=== PATIENT | female | born 1955 | race African-American/Black ===

== ENCOUNTER 2017-03-20 14:16 | Inpatient (IN) | payer OTHER ==
[2017-03-20 16:23] VITALS: BMI 20.2
[2017-03-20] MEDS ORDERED: NICOTINE POLACRILEX 2 MG GUM BC PRN (17:52)
[2017-03-20] MEDS ORDERED: ACETAMINOPHEN 325 MG TABLET (FP) PO PRN (17:52)
[2017-03-20] MEDS ORDERED: MAGNESIUM CITRATE 300 ML BOTTLE PO PRN (17:52)
[2017-03-20] MEDS ORDERED: MENTHOL/PHENOL 1 EACH UD MM PRN (17:52)
[2017-03-20] MEDS ORDERED: P-EPHED 60MG/TRIPROLIDI 2.5MG TABLET PO PRN (17:52)
[2017-03-20] MEDS ORDERED: IBUPROFEN 400 MG TABLET (FP) PO PRN (17:52)
[2017-03-20] MEDS ORDERED: hydrOXYzine PAMOATE 50 MG CAPSULE (FP) PO PRN (17:52)
[2017-03-20] MEDS ORDERED: chlordiazePOXIDE HCL 25 MG CAPSULE PO PRN (17:52)
[2017-03-20] MEDS ORDERED: guaiFENesin/D-METHORPHAN HB 10 ML UNIT-DOSE CUPS PO PRN (17:52)
[2017-03-20] MEDS ORDERED: LOPERAMIDE HCL 2 MG CAPSULE PO PRN (17:52)
--- NOTE | 2017-03-20 17:57 | HP ---
CIWA Score - CIWA Score Nausea/Vomitin-Int. Nausea w/Dry Heave Muscle Tremors: 3 Anxiety: 3 Agitation: 3 Paroxysmal Sweats: 3 Orientation: 0-Oriented Tacttile Disturbances: 1-Very Mild Itch/Numbness Auditory Disturbances: 0-None Visual Disturbances: 0-None Headache: 0-None Present CIWA-Ar Total Score: 17 Admission ROS BHS - HPI Chief Complaint: alcohol and benzodiazepine withdrawal sx Allergies/Adverse Reactions: Allergies Allergy/AdvReac Type Severity Reaction Status Date / Time Sulfa (Sulfonamide Allergy Severe Swelling Verified 03/20/17 16:53 Antibiotics) History of Present Illness: 61 yo f w h/o opioid use disorder on MMTP 100mg dialy last date of medication , was not medicated today because [facility] and [facility]odiazep[facility]. smokes crack cocaine, has chast pain when she smokes, smokes 1PPD. nicotine develops withdrawal sx when she does not use, last used last night. Exam Limitations: No Limitations - Ebola screening Have you traveled outside of the country in the last 21 days: No Have you had contact with anyone from an Ebola affected area: No Have you been sick,other than usual withdrawal symptoms: No Do you have a fever: No - Review of Systems Constitutional: Chills, Diaphoresis, Night Sweats, Weakness, Unintentional Wgt. Loss EENT: reports: Nose Congestion Respiratory: reports: No Symptoms reported Cardiac: reports: Chest Pain (when she smokes ciagarresttes and crack, angina on medication did not take today) GI: reports: Diarrhea, Nausea, Poor Appetite, Poor Fluid Intake, Vomiting, Indigestion, Abdominal cramping : reports: Discharge Musculoskeletal: reports: Back Pain, Muscle Pain Integumentary: reports: Flushing, Sweating Neuro: reports: Headache, Numbness, Paresthesia, Tremors, Weakness Endocrine: reports: Increased Thirst Hematology: reports: No Symptoms Reported Psychiatric: reports: Judgement Intact, Mood/Affect Appropiate, Orientated x3, Anxious, Depressed Other Systems: Reviewed and Negative Patient History - Patient Medical History Hx Anemia: No Hx Asthma: No Hx Chronic Obstructive Pulmonary Disease (COPD): No Hx Cancer: No Hx Cardiac Disorders: No Hx Congestive Heart Failure: No Hx Hypertension: Yes Hx Hypercholesterolemia: No Hx Pacemaker: No HX Cerebrovascular Accident: No Hx Seizures: No Hx Dementia: No Hx Diabetes: No Hx Gastrointestinal Disorders: Yes (acid reflux) Hx Liver Disease: No Hx Genitourinary Disorders: No Hx Sexually Transmitted Disorders: Yes (gonorrhea and syphilis) Hx Renal Disease (ESRD): No Hx Thyroid Disease: No Hx Human Immunodeficiency Virus (HIV): No Hx Hepatitis C: No Hx Depression: Yes Hx Suicide Attempt: No Hx Bipolar Disorder: No Hx Schizophrenia: No - Patient Surgical History Past Surgical History: Yes Hx Neurologic Surgery: No Hx Cataract Extraction: No Hx Cardiac Surgery: No Hx Lung Surgery: No Hx Breast Surgery: No Hx Breast Biopsy: No Hx Abdominal Surgery: Yes (spleenectomy) Hx Appendectomy: No Hx Cholecystectomy: No Hx Genitourinary Surgery: No Hx Section: No Hx Orthopedic Surgery: No Anesthesia Reaction: No - PPD History Previous Implant?: Yes Documented Results: Negative w/o proof Implanted On Prior R Admission?: No PPD to be Administered?: Yes - Reproductive History Patient is a Female of Child Bearing Age (11 -55 yrs old): No Patient : No - Smoking Cessation Smoking history: Current every day smoker Have you smoked in the past 12 months: Yes Aproximately how many cigarettes per day: 20 Hx Chewing Tobacco Use: No Initiated information on smoking cessation: Yes 'Breaking Loose' booklet given: 03/20/17 - Substance & Tx. History Hx Alcohol Use: Yes Hx Substance Use: Yes Substance Use Type: Alcohol, Cocaine, Heroin, Marijuana, Opiates, Prescribed, Tranquilizers Hx Substance Use Treatment: Yes (MMTP) - Substances Abused Cocaine Route: Smoking Frequency: Daily Amount used: $100 Age of first use: 40 Date of Last Use: 03/19/17 Heroin Route: Inhalation Frequency: Daily Amount used: 4-6 bags Age of first use: 34 Date of Last Use: 03/19/17 Alcohol-jeanie/beer Route: Oral Frequency: Daily Amount used: 1/4 pt./2 (32 oz.) Age of first use: 17 Date of Last Use: 03/20/17 Marijuana Route: Smoking Frequency: Daily Amount used: $10 Age of first use: 18 Date of Last Use: 03/19/17 Family Disease History - Family Disease History Family History: Denies Admission Physical Exam BHS - Vital Signs Vital Signs: Vital Signs - 24 hr 03/20/17 16:19 Temperature 96.6 F L Pulse Rate 71 Respiratory 19 Rate Blood Pressure 141/73 - Physical General Appearance: Yes: Nourished, Appropriately Dressed, Disheveled, Mild Distress, Alcohol on Breath, Thin, Tremorous, Sweating, Anxious HEENTM: Yes: Within Normal Limits, EOMI, Hearing grossly Normal, Normal ENT Inspection, Normocephalic, Normal Voice, SABRINA, Pharynx Normal Respiratory: Yes: Within Normal Limits, Chest Non-Tender, Lungs Clear, Normal Breath Sounds, No Respiratory Distress, No Accessory Muscle Use Neck: Yes: Within Normal Limits, No masses,lesions,Nodules, Supple, Trachea in good position Breast: Yes: Breast Exam Deferred Cardiology: Yes: Within Normal Limits, Regular Rhythm, Regular Rate, S1, S2 Abdominal: Yes: Normal Bowel Sounds, Non Tender, Flat, Soft Genitourinary: Yes: Vaginal Discharge (reported requesting monistat) Back: Yes: Within Normal Limits, Normal Inspection Musculoskeletal: Yes: full range of Motion, Gait Steady, Pelvis Stable, Back pain, Muscle Pain Extremities: Yes: Normal Capillary Refill, Normal Range of Motion, Non-Tender, Tremors Neurological: Yes: student recruiter II-XII NML intact, Fully Oriented, Alert, Motor Strength 5/5, Normal Response Integumentary: Yes: Normal Color, Warm Lymphatic: Yes: Within Normal Limits - Addiitonal Findings: withdrawal sx - Diagnostic (1) Alcohol dependence with uncomplicated withdrawal Current Visit: Yes Status: Acute (2) Cocaine dependence Current Visit: Yes Status: Acute (3) Opioid dependence on agonist therapy Current Visit: Yes Status: Acute (4) Nicotine dependence Current Visit: Yes Status: Acute (5) Chest pain Current Visit: Yes Status: Acute (6) Dehydration Current Visit: Yes Status: Acute (7) Depression Current Visit: Yes Status: Acute (8) Vaginal discharge Current Visit: Yes Status: Acute Cleared for Admission [facility] - Detox or Rehab [facility] Level of Care: Medically Managed Detox Regimen/Protocol: Librium [facility] Breath Alcohol Content Breath Alcohol Content: 0.012 Urine Pregancy Test - Result Urine Test Results: Negative- NO Line Present Urine Drug Screen - Results Drug Screen Negative: No Urine Drug Screen Results: PIPER-Cocaine, OPI-Opiates, MTD-Methadone
[2017-03-20] MEDS ORDERED: chlordiazePOXIDE HCL 25 MG CAPSULE PO ONE (18:30)
[2017-03-20] MEDS: RANOLAZINE E.R. 500 MG TABLET (FP) PO SCH (19:30)
[2017-03-20] MEDS: NICOTINE 14 MG/24 HOURS TOPICAL PATCH TD SCH (19:32)
[2017-03-20] MEDS: GABAPENTIN 100 MG CAPSULE (FP) PO SCH (22:11)
[2017-03-20] MEDS: THIAMINE HCL 100 MG TABLET (FP) PO SCH (22:11)
[2017-03-20] MEDS: chlordiazePOXIDE HCL 25 MG CAPSULE PO SCH (22:11)
[2017-03-20] MEDS: MICONAZOLE NITRATE 100 MG SUPP SUPP.VAG PV SCH (22:14)
[2017-03-20 23:40] LABS: URINE APPEARANCE SLCLOUDY; URINE BILIRUBIN NEGATIVE (NEGATIVE); URINE BLOOD 2+ (NEGATIVE); URINE COLOR DKYELLOW; URINE GLUCOSE (UA) NEGATIVE (NEGATIVE); URINE KETONE NEGATIVE (NEGATIVE); URINE NITRITE NEGATIVE (NEGATIVE); URINE PROTEIN NEGATIVE (NEGATIVE)
[2017-03-21 00:25] LABS: URINE LEUK ESTERASE 1+ (NEGATIVE)
[2017-03-21 01:39] LABS: URINE MUCUS RARE; URINE RBC 11 /hpf (0-3); URINE WBC 3 /hpf (3-5)
[2017-03-21] MEDS: chlordiazePOXIDE HCL 25 MG CAPSULE PO SCH ×4 (05:51→22:30)
[2017-03-21] MEDS: GABAPENTIN 100 MG CAPSULE (FP) PO SCH ×3 (05:51→22:30)
--- NOTE | 2017-03-21 09:47 | CONSULT ---
[facility] Psychiatric Consult - Data Date of interview: 03/21/17 Admission source: [facility] Identifying data: Pt. is a 61 year old female, mother of two, , unemployed , homeless, and on disability. Pt. admitted to for cocaine, heroin, marijuana, and alcohol dependence. Substance Abuse History: Following information confirmed with Ms. Pettit: Smoking Cessation. Smoking history: Current every day smoker. Have you smoked in the past 12 months: Yes. Aproximately how many cigarettes per day: 20. - Substance & Tx. History. Hx Alcohol Use: Yes. Hx Substance Use: Yes. Substance Use Type: Alcohol, Cocaine, Heroin, Marijuana, Opiates, Prescribed, Tranquilizers. Hx Substance Use Treatment: Yes (MMTP). Cocaine: Route: Smoking Frequency: Daily. Amount used: $100 Age of first use: 40. Date of Last Use: 03/19/17. Heroin: Route: Inhalation Frequency: Daily. Amount used: 4-6 bags Age of first use: 34. Date of Last Use: 03/19/17. Alcohol- jeanie/beer: Route: Oral. Frequency: Daily Amount used: 1/4 pt./2 (32 oz.) . Age of first use: 17 Date of Last Use: 03/20/17. Marijuana: Route: Smoking Frequency: Daily. Amount used: $10 Age of first use: 18. Date of Last Use: 03/19/17 Medical History: Hypertension, acid reflux Psychiatric History: Pt. reports h/o one past psychiatric hospitalization at [facility] for suicidal ideation. Pt. unable to recall which medication she was given while at [place]. Pt. reports h/o two suicide attempts. One in 1994 in which she attempted to cut her arm but was stopped and also in 2012 which patient stated she attempted to jump off the fire escape but was also stopped. Pt. is a poor historian and is unable to recall which psychiatric medications she is currently taking and the last time she took them. Pt. stated " i'm a junkie. i do every drug. I don't take no psych medications." Pt. reports last seeing a psychiatrist [facility] over one month ago but stated her case was closed for missing to many appointments. Pt. currently denies suicidal and homicial ideation. Physical/Sexual Abuse/Trauma History: Pt. denies. Additional Comment: Urine Drug Screen Results: PIPER-Cocaine, OPI-Opiates, MTD- Methadone Mental Status Exam - Mental Status Exam Alert and Oriented to: Time, Place, Person Cognitive Function: Fair Patient Appearance: Unkempt Mood: Euthymic Affect: Mood Congruent Patient Behavior: Talkative, Cooperative Speech Pattern: Appropriate Voice Loudness: Moderately Soft/Quiet Thought Process: Circumstantial, Goal Oriented Hallucinations: Denies Suicidal Ideation: Denies Homicidal Ideation: Denies Insight/Judgement: Poor Sleep: Fair Appetite: Fair Muscle strength/Tone: Normal Gait/Station: Normal Psychiatric Findings - Problem List ([place] 1, 2,3) (1) Alcohol dependence with uncomplicated withdrawal Current Visit: Yes Status: Chronic (2) Opioid dependence on agonist therapy Current Visit: Yes Status: Acute (3) Cocaine dependence Current Visit: Yes Status: Acute Qualifiers: Substance use status: uncomplicated Qualified Code(s): F14.20 - Cocaine dependence, uncomplicated (4) Nicotine dependence Current Visit: Yes Status: Acute Qualifiers: Nicotine product type: cigarettes Substance use status: uncomplicated Qualified Code(s): F17.210 - Nicotine dependence, cigarettes, uncomplicated - Initial Treatment Plan Initial Treatment Plan: Psychoeducation provided. Detox in progress. Will continue to monitor patient.
[2017-03-21] MEDS ORDERED: METHADONE HCL 10 MG TABLET PO ONE (10:04)
[2017-03-21 10:13] LABS: MCH 33.3 pg (25.7-33.7); MCHC 33.2 g/dl (32.0-36.0); MEAN CELL VOLUME 100.5 fl (80-96); MEAN PLT VOLUME 8.1 fl (7.5-11.1); PLATELET COUNT 242 K/MM3 (134-434); RDW 13.9 % (11.6-15.6); WHITE BLOOD COUNT 7.1 K/mm3 (4.0-10.0)
[2017-03-21] MEDS: RANOLAZINE E.R. 500 MG TABLET (FP) PO SCH (10:17)
[2017-03-21] MEDS: PRENATAL VITAMINS W/ FOLIC ACID TABLET (FP) PO SCH (10:17)
[2017-03-21] MEDS ORDERED: METHADONE HCL 10 MG TABLET ONE (10:23)
[2017-03-21] MEDS ORDERED: METHADONE HCL 40 MG DISPERSABLE TABLET ONE (10:23)
[2017-03-21] MEDS ORDERED: METHADONE 80 MG, METHADONE 20 MG PO ONE (10:30)
[2017-03-21 10:34] LABS: ALBUMIN 3.3 g/dl (3.4-5.0); ALK PHOS 94 U/L (45-117); ANION GAP 9 (8-16); BILIRUBIN,TOTAL 0.8 mg/dL (0.2-1.0); CALCIUM 8.2 mg/dL (8.5-10.1); CO2 27 mmol/L (21-32); CREATININE 0.8 mg/dL (0.55-1.02); GLUCOSE,RANDOM 101 mg/dL (74-106); SGOT/AST 24 U/L (15-37); SGPT/ALT 21 U/L (12-78); TOT PROT 6.6 g/dl (6.4-8.2)
--- NOTE | 2017-03-21 12:24 | PN ---
S CIWA - CIWA Score Nausea/Vomitin-No Nausea/No Vomiting Muscle Tremors: 4-Moderate,w/Arms Extend Anxiety: 4-Mod. Anxious/Guarded Agitation: 3 Paroxysmal Sweats: 3 Orientation: 0-Oriented Tacttile Disturbances: 0-None Auditory Disturbances: 0-None Visual Disturbances: 0-None Headache: 0-None Present CIWA-Ar Total Score: 14 BHS Progress Note (SOAP) Subjective: shakes sweats body aches irritable agitation Objective: 03/21/17 12:24 Vital Signs Temperature 98.4 F 03/21/17 10:13 Pulse Rate 84 03/21/17 10:13 Respiratory Rate 18 03/21/17 10:13 Blood Pressure 125/74 03/21/17 10:13 O2 Sat by Pulse Oximetry (%) Laboratory Tests 03/20/17 03/21/17 03/21/17 20:15 07:00 07:00 WBC 7.1 RBC 4.07 Hgb 13.6 Hct 40.9 MCV 100.5 H MCH 33.3 MCHC 33.2 RDW 13.9 Plt Count 242 MPV 8.1 Sodium 141 Potassium 3.8 Chloride 105 Carbon Dioxide 27 Anion Gap 9 BUN 24 H Creatinine 0.8 Creat Clearance w eGFR > 60 Random Glucose 101 Calcium 8.2 L Total Bilirubin 0.8 AST 24 ALT 21 Alkaline Phosphatase 94 Total Protein 6.6 Albumin 3.3 L Urine Color Dkyellow Urine Appearance Slcloudy Urine pH 5.0 Ur Specific [place] 1.023 Urine Protein Negative Urine Glucose (UA) Negative Urine Ketones Negative Urine Blood 2+ H Urine Nitrite Negative Urine Bilirubin Negative Urine Urobilinogen 2.0 H Urine WBC (Auto) 3 Urine RBC (Auto) 11 Ur Epithelial Cells Rare Urine Mucus Rare RPR Titer 03/21/17 07:00 WBC RBC Hgb Hct MCV MCH MCHC RDW Plt Count MPV Sodium Potassium Chloride Carbon Dioxide Anion Gap BUN Creatinine Creat Clearance w eGFR Random Glucose Calcium Total Bilirubin AST ALT Alkaline Phosphatase Total Protein Albumin Urine Color Urine Appearance Urine pH Ur Specific [place] Urine Protein Urine Glucose (UA) Urine Ketones Urine Blood Urine Nitrite Urine Bilirubin Urine Urobilinogen Urine WBC (Auto) Urine RBC (Auto) Ur Epithelial Cells Urine Mucus RPR Titer Nonreactive aaox3 ambulating no acute distress Assessment: 03/21/17 12:24 withdrawal sx Plan: continue detox increase fluids
[2017-03-21] MEDS: NICOTINE 14 MG/24 HOURS TOPICAL PATCH TD SCH (12:35)
[2017-03-21 12:42] LABS: SICKLE CELL SCREEN NEGATIVE (NEGATIVE)
[2017-03-21] MEDS: NICOTINE 21 MG/24 HOURS TOPICAL PATCH TD SCH (12:49)
[2017-03-21] MEDS: MAGNESIUM HYDROX 2400MG/30ML ORAL SUSPENSION 30 ML CUP PO PRN ×2 (13:05→22:43)
--- NOTE | 2017-03-21 14:00 | EKG ---
Test Reason : Blood Pressure : / mmHG Vent. Rate : 061 BPM Atrial Rate : 061 BPM P-R Int : 126 ms QRS Dur : 080 ms QT Int : 450 ms P-R-T Axes : 062 053 039 degrees QTc Int : 453 ms NORMAL SINUS RHYTHM T WAVE ABNORMALITY, CONSIDER ANTERIOR ISCHEMIA ABNORMAL ECG NO PREVIOUS ECGS AVAILABLE Confirmed by FABIANA VENTURA MD ([id number]) on 03/21/2017 1:59:55 PM Referred By: Confirmed By:FABIANA VENTURA MD
[2017-03-21] MEDS: MICONAZOLE NITRATE 100 MG SUPP SUPP.VAG PV SCH (22:30)
[2017-03-21] MEDS: THIAMINE HCL 100 MG TABLET (FP) PO SCH (22:30)
[2017-03-22] MEDS ORDERED: METHADONE HCL 10 MG TABLET ONE (05:07)
[2017-03-22] MEDS ORDERED: METHADONE HCL 40 MG DISPERSABLE TABLET ONE ×2 (05:07→11:13)
[2017-03-22] MEDS ORDERED: METHADONE HCL 40 MG DISPERSABLE TABLET PO SCH (06:00)
[2017-03-22] MEDS: chlordiazePOXIDE HCL 25 MG CAPSULE PO SCH ×3 (06:51→17:49)
[2017-03-22] MEDS: METHADONE 80 MG, METHADONE 20 MG PO SCH (07:48)
[2017-03-22] MEDS: GABAPENTIN 100 MG CAPSULE (FP) PO SCH ×3 (07:49→22:17)
[2017-03-22] MEDS ORDERED: METHADONE HCL 10 MG TABLET PO ONE ×2 (10:34→11:45)
[2017-03-22] MEDS: PRENATAL VITAMINS W/ FOLIC ACID TABLET (FP) PO SCH (10:36)
[2017-03-22] MEDS: RANOLAZINE E.R. 500 MG TABLET (FP) PO SCH (10:36)
[2017-03-22] MEDS: NICOTINE 21 MG/24 HOURS TOPICAL PATCH TD SCH (10:36)
[2017-03-22] MEDS ORDERED: METHADONE 80 MG, METHADONE (DETOX) 20 MG PO ONE (11:15)
[2017-03-22] MEDS ORDERED: METHADONE 80 MG, METHADONE 20 MG PO ONE (11:30)
[2017-03-22] MEDS ORDERED: ONDANSETRON *ODT* 4 MG TABLET SL PRN (15:02)
--- NOTE | 2017-03-22 15:08 | PN ---
S CIWA - CIWA Score Nausea/Vomitin-No Nausea/No Vomiting Muscle Tremors: 3 Anxiety: 4-Mod. Anxious/Guarded Agitation: 3 Paroxysmal Sweats: 3 Orientation: 0-Oriented Tacttile Disturbances: 0-None Auditory Disturbances: 0-None Visual Disturbances: 0-None Headache: 0-None Present CIWA-Ar Total Score: 13 BHS Progress Note (SOAP) Subjective: Anxiety,tremors,sweating,restless Objective: 03/22/17 15:07 Vital Signs - 8 hr 03/22/17 10:00 Temperature 98.2 F Pulse Rate 101 H Respiratory 18 Rate Blood Pressure 138/92 Laboratory Tests 03/20/17 03/20/17 03/21/17 07:00 20:15 07:00 WBC 7.1 RBC 4.07 Hgb 13.6 Hct 40.9 MCV 100.5 H MCH 33.3 MCHC 33.2 RDW 13.9 Plt Count 242 MPV 8.1 Sickle Cell Screen Negative Sodium Potassium Chloride Carbon Dioxide Anion Gap BUN Creatinine Creat Clearance w eGFR Random Glucose Calcium Total Bilirubin AST ALT Alkaline Phosphatase Total Protein Albumin Urine Color Dkyellow Urine Appearance Slcloudy Urine pH 5.0 Ur Specific [place] 1.023 Urine Protein Negative Urine Glucose (UA) Negative Urine Ketones Negative Urine Blood 2+ H Urine Nitrite Negative Urine Bilirubin Negative Urine Urobilinogen 2.0 H Urine WBC (Auto) 3 Urine RBC (Auto) 11 Ur Epithelial Cells Rare Urine Mucus Rare RPR Titer Hepatitis C Antibody >11.0 H 03/21/17 03/21/17 07:00 07:00 WBC RBC Hgb Hct MCV MCH MCHC RDW Plt Count MPV Sickle Cell Screen Sodium 141 Potassium 3.8 Chloride 105 Carbon Dioxide 27 Anion Gap 9 BUN 24 H Creatinine 0.8 Creat Clearance w eGFR > 60 Random Glucose 101 Calcium 8.2 L Total Bilirubin 0.8 AST 24 ALT 21 Alkaline Phosphatase 94 Total Protein 6.6 Albumin 3.3 L Urine Color Urine Appearance Urine pH Ur Specific [place] Urine Protein Urine Glucose (UA) Urine Ketones Urine Blood Urine Nitrite Urine Bilirubin Urine Urobilinogen Urine WBC (Auto) Urine RBC (Auto) Ur Epithelial Cells Urine Mucus RPR Titer Nonreactive Hepatitis C Antibody labs noted Assessment: 03/22/17 15:07 Withdrawal sx. Plan: continue detox
[2017-03-22] MEDS ORDERED: TRIMETHOBENZAMIDE HCL 200MG/2ML INJ IM ONE (22:04)
[2017-03-22] MEDS: THIAMINE HCL 100 MG TABLET (FP) PO SCH (22:16)
[2017-03-22] MEDS: chlordiazePOXIDE 5 MG CAPSULE PO SCH (22:17)
[2017-03-22] MEDS: MICONAZOLE NITRATE 100 MG SUPP SUPP.VAG PV SCH (22:56)
[2017-03-23] MEDS ORDERED: METHADONE HCL 10 MG TABLET ONE (04:23)
[2017-03-23] MEDS ORDERED: METHADONE HCL 40 MG DISPERSABLE TABLET ONE (04:23)
[2017-03-23] MEDS: chlordiazePOXIDE 5 MG CAPSULE PO SCH ×3 (06:33→17:02)
[2017-03-23] MEDS: GABAPENTIN 100 MG CAPSULE (FP) PO SCH ×3 (06:34→22:41)
[2017-03-23] MEDS: METHADONE 80 MG, METHADONE 20 MG PO SCH (10:21)
[2017-03-23] MEDS: RANOLAZINE E.R. 500 MG TABLET (FP) PO SCH (10:22)
[2017-03-23] MEDS: PRENATAL VITAMINS W/ FOLIC ACID TABLET (FP) PO SCH (10:22)
[2017-03-23] MEDS: NICOTINE 21 MG/24 HOURS TOPICAL PATCH TD SCH (10:22)
--- NOTE | 2017-03-23 10:29 | PN ---
BHS Progress Note (SOAP) Subjective: Sweating,interrupted sleep,restless Objective: 03/23/17 10:28 Vital Signs - 8 hr 03/23/17 03/23/17 03:30 07:15 Temperature 96.9 F L Pulse Rate 66 Respiratory 18 16 Rate Blood Pressure 115/67 Laboratory Last Values WBC 7.1 K/mm3 (4.0-10.0) 03/21/17 07:00 RBC 4.07 M/mm3 (3.60-5.2) 03/21/17 07:00 Hgb 13.6 GM/dL (10.7-15.3) 03/21/17 07:00 Hct 40.9 % (32.4-45.2) 03/21/17 07:00 MCV 100.5 fl (80-96) H 03/21/17 07:00 MCH 33.3 pg (25.7-33.7) 03/21/17 07:00 MCHC 33.2 g/dl (32.0-36.0) 03/21/17 07:00 RDW 13.9 % (11.6-15.6) 03/21/17 07:00 Plt Count 242 K/MM3 (134-434) 03/21/17 07:00 MPV 8.1 fl (7.5-11.1) 03/21/17 07:00 Sickle Cell Screen Negative (NEGATIVE) 03/21/17 07:00 Sodium 141 mmol/L (136-145) 03/21/17 07:00 Potassium 3.8 mmol/L (3.5-5.1) 03/21/17 07:00 Chloride 105 mmol/L (98-107) 03/21/17 07:00 Carbon Dioxide 27 mmol/L (21-32) 03/21/17 07:00 Anion Gap 9 (8-16) 03/21/17 07:00 BUN 24 mg/dL (7-18) H 03/21/17 07:00 Creatinine 0.8 mg/dL (0.55-1.02) 03/21/17 07:00 Creat Clearance w eGFR > 60 (>60) 03/21/17 07:00 Random Glucose 101 mg/dL (74-106) 03/21/17 07:00 Calcium 8.2 mg/dL (8.5-10.1) L 03/21/17 07:00 Total Bilirubin 0.8 mg/dL (0.2-1.0) 03/21/17 07:00 AST 24 U/L (15-37) 03/21/17 07:00 ALT 21 U/L (12-78) 03/21/17 07:00 Alkaline Phosphatase 94 U/L (45-117) 03/21/17 07:00 Total Protein 6.6 g/dl (6.4-8.2) 03/21/17 07:00 Albumin 3.3 g/dl (3.4-5.0) L 03/21/17 07:00 Urine Color Dkyellow 03/20/17 20:15 Urine Appearance Slcloudy 03/20/17 20:15 Urine pH 5.0 (5.0-8.0) 03/20/17 20:15 Ur Specific [place] 1.023 (1.001-1.035) 03/20/17 20:15 Urine Protein Negative (NEGATIVE) 03/20/17 20:15 Urine Glucose (UA) Negative (NEGATIVE) 03/20/17 20:15 Urine Ketones Negative (NEGATIVE) 03/20/17 20:15 Urine Blood 2+ (NEGATIVE) H 03/20/17 20:15 Urine Nitrite Negative (NEGATIVE) 03/20/17 20:15 Urine Bilirubin Negative (NEGATIVE) 03/20/17 20:15 Urine Urobilinogen 2.0 mg/dL (0.2-1.0) H 03/20/17 20:15 Urine WBC (Auto) 3 /hpf (3-5) 03/20/17 20:15 Urine RBC (Auto) 11 /hpf (0-3) 03/20/17 20:15 Ur Epithelial Cells Rare /HPF (FEW) 03/20/17 20:15 Urine Mucus Rare 03/20/17 20:15 RPR Titer Nonreactive (NONREACTIVE) 03/21/17 07:00 Hepatitis C Antibody >11.0 s/co ratio (0.0-0.9) H 03/20/17 07:00 labs noted Assessment: 03/23/17 10:28 Withdrawal sx. Plan: Continue detox
[2017-03-23] MEDS: THIAMINE HCL 100 MG TABLET (FP) PO SCH (22:41)
[2017-03-23] MEDS: chlordiazePOXIDE HCL 10 MG CAPSULE PO SCH (22:41)
[2017-03-23] MEDS: MICONAZOLE NITRATE 100 MG SUPP SUPP.VAG PV SCH (22:41)
[2017-03-24] MEDS ORDERED: METHADONE HCL 40 MG DISPERSABLE TABLET ONE (04:34)
[2017-03-24] MEDS ORDERED: METHADONE HCL 10 MG TABLET ONE (04:34)
[2017-03-24] MEDS: METHADONE 80 MG, METHADONE 20 MG PO SCH (05:35)
[2017-03-24] MEDS: GABAPENTIN 100 MG CAPSULE (FP) PO SCH ×3 (05:36→22:19)
[2017-03-24] MEDS: chlordiazePOXIDE HCL 10 MG CAPSULE PO SCH ×3 (05:36→16:59)
--- NOTE | 2017-03-24 09:35 | PN ---
BHS Progress Note (SOAP) Subjective: interrupted sleep, sweats, tired Objective: 03/24/17 09:33 Vital Signs Temperature 96.4 F L 03/24/17 06:42 Pulse Rate 68 03/24/17 06:42 Respiratory Rate 16 03/24/17 06:42 Blood Pressure 109/72 03/24/17 06:42 O2 Sat by Pulse Oximetry (%) Laboratory Tests 03/20/17 03/20/17 03/21/17 07:00 20:15 07:00 WBC 7.1 RBC 4.07 Hgb 13.6 Hct 40.9 MCV 100.5 H MCH 33.3 MCHC 33.2 RDW 13.9 Plt Count 242 MPV 8.1 Sickle Cell Screen Negative Sodium Potassium Chloride Carbon Dioxide Anion Gap BUN Creatinine Creat Clearance w eGFR Random Glucose Calcium Total Bilirubin AST ALT Alkaline Phosphatase Total Protein Albumin Urine Color Dkyellow Urine Appearance Slcloudy Urine pH 5.0 Ur Specific [place] 1.023 Urine Protein Negative Urine Glucose (UA) Negative Urine Ketones Negative Urine Blood 2+ H Urine Nitrite Negative Urine Bilirubin Negative Urine Urobilinogen 2.0 H Urine WBC (Auto) 3 Urine RBC (Auto) 11 Ur Epithelial Cells Rare Urine Mucus Rare RPR Titer Hepatitis C Antibody >11.0 H 03/21/17 03/21/17 07:00 07:00 WBC RBC Hgb Hct MCV MCH MCHC RDW Plt Count MPV Sickle Cell Screen Sodium 141 Potassium 3.8 Chloride 105 Carbon Dioxide 27 Anion Gap 9 BUN 24 H Creatinine 0.8 Creat Clearance w eGFR > 60 Random Glucose 101 Calcium 8.2 L Total Bilirubin 0.8 AST 24 ALT 21 Alkaline Phosphatase 94 Total Protein 6.6 Albumin 3.3 L Urine Color Urine Appearance Urine pH Ur Specific [place] Urine Protein Urine Glucose (UA) Urine Ketones Urine Blood Urine Nitrite Urine Bilirubin Urine Urobilinogen Urine WBC (Auto) Urine RBC (Auto) Ur Epithelial Cells Urine Mucus RPR Titer Nonreactive Hepatitis C Antibody pt aox3 in nad lying in bed. Assessment: 03/24/17 09:34 withdrawal sx's Plan: cont. detox increase fluids d/c in am
[2017-03-24] MEDS: NICOTINE 21 MG/24 HOURS TOPICAL PATCH TD SCH (11:25)
[2017-03-24] MEDS: PRENATAL VITAMINS W/ FOLIC ACID TABLET (FP) PO SCH (11:26)
[2017-03-24] MEDS: RANOLAZINE E.R. 500 MG TABLET (FP) PO SCH (11:26)
[2017-03-24] MEDS: PANTOPRAZOLE 40 MG TABLET (FP) PO SCH (11:32)
[2017-03-24] MEDS: THIAMINE HCL 100 MG TABLET (FP) PO SCH (22:19)
[2017-03-24] MEDS: MAG HYDROX/AL HYDROX/SIMETH 30 ML UNIT-DOSE CUP PO PRN (22:20)
[2017-03-24] MEDS: MICONAZOLE NITRATE 100 MG SUPP SUPP.VAG PV SCH (22:22)
[2017-03-25] MEDS ORDERED: METHADONE HCL 40 MG DISPERSABLE TABLET ONE (04:30)
[2017-03-25] MEDS ORDERED: METHADONE HCL 10 MG TABLET ONE (04:31)
[2017-03-25] MEDS: GABAPENTIN 100 MG CAPSULE (FP) PO SCH (05:44)
[2017-03-25] MEDS: MAG HYDROX/AL HYDROX/SIMETH 30 ML UNIT-DOSE CUP PO PRN ×2 (05:44→12:46)
[2017-03-25] MEDS: METHADONE 80 MG, METHADONE 20 MG PO SCH (05:44)
[2017-03-25] MEDS: PRENATAL VITAMINS W/ FOLIC ACID TABLET (FP) PO SCH (09:29)
[2017-03-25] MEDS: RANOLAZINE E.R. 500 MG TABLET (FP) PO SCH (09:29)
[2017-03-25] MEDS: PANTOPRAZOLE 40 MG TABLET (FP) PO SCH (09:30)
[2017-03-25 11:15] VITALS: BP 112/64; PULSE 67; TEMP 97.9
[2017-03-25] MEDS: NICOTINE 21 MG/24 HOURS TOPICAL PATCH TD SCH (11:52)
--- NOTE | 2017-03-25 15:12 | DS ---
[facility] Detox Discharge Summary Admission Date: 03/20/17 Discharge Date: 03/25/17 - History Present History: Alcohol Dependence, Cocaine Dependence, MMTP Pertinent Past History: GERD - Physical Exam Results Vital Signs: Vital Signs Temperature 97.9 F 03/25/17 11:15 Pulse Rate 67 03/25/17 11:15 Respiratory Rate 18 03/25/17 11:15 Blood Pressure 112/64 03/25/17 11:15 O2 Sat by Pulse Oximetry (%) Pertinent Admission Physical Exam Findings: Withdrawal symptoms Laboratory Tests 03/20/17 03/20/17 03/21/17 07:00 20:15 07:00 WBC 7.1 RBC 4.07 Hgb 13.6 Hct 40.9 MCV 100.5 H MCH 33.3 MCHC 33.2 RDW 13.9 Plt Count 242 MPV 8.1 Sickle Cell Screen Negative Sodium Potassium Chloride Carbon Dioxide Anion Gap BUN Creatinine Creat Clearance w eGFR Random Glucose Calcium Total Bilirubin AST ALT Alkaline Phosphatase Total Protein Albumin Urine Color Dkyellow Urine Appearance Slcloudy Urine pH 5.0 Ur Specific [place] 1.023 Urine Protein Negative Urine Glucose (UA) Negative Urine Ketones Negative Urine Blood 2+ H Urine Nitrite Negative Urine Bilirubin Negative Urine Urobilinogen 2.0 H Urine WBC (Auto) 3 Urine RBC (Auto) 11 Ur Epithelial Cells Rare Urine Mucus Rare RPR Titer Hepatitis C Antibody >11.0 H 03/21/17 03/21/17 07:00 07:00 WBC RBC Hgb Hct MCV MCH MCHC RDW Plt Count MPV Sickle Cell Screen Sodium 141 Potassium 3.8 Chloride 105 Carbon Dioxide 27 Anion Gap 9 BUN 24 H Creatinine 0.8 Creat Clearance w eGFR > 60 Random Glucose 101 Calcium 8.2 L Total Bilirubin 0.8 AST 24 ALT 21 Alkaline Phosphatase 94 Total Protein 6.6 Albumin 3.3 L Urine Color Urine Appearance Urine pH Ur Specific [place] Urine Protein Urine Glucose (UA) Urine Ketones Urine Blood Urine Nitrite Urine Bilirubin Urine Urobilinogen Urine WBC (Auto) Urine RBC (Auto) Ur Epithelial Cells Urine Mucus RPR Titer Nonreactive Hepatitis C Antibody Labs noted: bun 24; UA: 2+ blood (encouraged to drink lots of water, follow up with PCP) - Treatment Hospital Course: Detox Protocol Followed, Detoxed Safely, Responded well, Discharged Condition Good - Medication Discharge Medications: Ambulatory Orders Gabapentin [Neurontin] 100 mg PO BID 03/20/17 Ranolazine [Ranexa -] 1,000 mg PO DAILY 03/20/17 Methadone [Dolophine -] 100 mg PO DAILY 03/25/17 Pantoprazole Sodium [Protonix] 40 mg PO DAILY 03/25/17 - Diagnosis (1) GERD (gastroesophageal reflux disease) Status: Acute (2) Alcohol dependence with uncomplicated withdrawal Status: Acute (3) Cocaine dependence Status: Chronic Qualifiers: Substance use status: uncomplicated Qualified Code(s): F14.20 - Cocaine dependence, uncomplicated (4) Depression Status: Chronic (5) Nicotine dependence Status: Chronic Qualifiers: Nicotine product type: cigarettes Substance use status: uncomplicated Qualified Code(s): F17.210 - Nicotine dependence, cigarettes, uncomplicated (6) Opioid dependence on agonist therapy Status: Acute - AMA Did Patient Leave Against Medical Advice: No (F/U with PCP within 1 week)
== END 2017-03-25 13:40 | disposition other institution (70) | DRG 773 ==
LOC: YASAS 14:16 → Y6N 17:30
PROVIDERS: ADMIT Internal Medicine; ATTEND Internal Medicine
PROC: HZ2ZZZZ Detoxification Services for Substance Abuse Treatment (ICD-10-PCS; principal; 2017-03-20)
DX: F11.20 Opioid dependence, uncomplicated (principal); F10.230 Alcohol dependence with withdrawal, uncomplicated; F14.20 Cocaine dependence, uncomplicated; F17.210 Nicotine dependence, cigarettes, uncomplicated; F32.9 Major depressive disorder, single episode, unspecified; K21.9 Gastro-esophageal reflux disease without esophagitis; Z87.42 Personal history of other diseases of the female genital tract; Z59.0 Homelessness
CPT/HCPCS: 36415; 80053; 81003; 81015; 85027; 85660; 86593; 86803; 93005; 93010

== ENCOUNTER 2017-03-25 13:51 | Inpatient (IN) | payer OTHER ==
[2017-03-25 14:44] VITALS: BMI 20.4
[2017-03-25] MEDS ORDERED: ACETAMINOPHEN 325 MG TABLET (FP) PO PRN (14:49)
[2017-03-25] MEDS ORDERED: LOPERAMIDE HCL 2 MG CAPSULE PO PRN (14:49)
[2017-03-25] MEDS ORDERED: P-EPHED 60MG/TRIPROLIDI 2.5MG TABLET PO PRN (14:49)
[2017-03-25] MEDS ORDERED: guaiFENesin/D-METHORPHAN HB 10 ML UNIT-DOSE CUPS PO PRN (14:49)
[2017-03-25] MEDS ORDERED: MENTHOL/PHENOL 1 EACH UD MM PRN (14:49)
[2017-03-25] MEDS ORDERED: MAGNESIUM CITRATE 300 ML BOTTLE PO PRN (14:49)
[2017-03-25] MEDS ORDERED: IBUPROFEN 400 MG TABLET (FP) PO PRN (14:49)
--- NOTE | 2017-03-25 16:39 | HP ---
[facility] Rehab Assess/Revision - Admission History Admitted to Rehab from: [facility] Date of Admission to Rehab: 03/25/17 - Vital signs Vital Signs: Vital Signs Period Temp Pulse Resp BP Sys/Caicedo Pulse Ox Last 24 Hr 98.3 F 74 18 121/78 - Findings Detox History & Physical reviewed: Yes Concur with findings: Yes Comments/Additional Findings: transferred from detox to rehab admission as per protocol Inpatient Rehab Admission - Initial Determination Are CD services needed?: Yes Free of communicable disease: Yes Not in need of hospitalization: Yes - Rehab Admission Criteria Previous failed treatment: Yes Poor recovery environment: Yes Comorbidities: Yes Lacks judgement: No Patient is meeting Inpatient Rehab admission criteria:: Yes
[2017-03-25] MEDS: GABAPENTIN 100 MG CAPSULE (FP) PO SCH (21:19)
[2017-03-25] MEDS: THIAMINE HCL 100 MG TABLET (FP) PO SCH (21:19)
[2017-03-25] MEDS ORDERED: GABAPENTIN 250 MG/5 ML ORAL SOLUTION, 470 ML BOTTLE PO SCH (22:00)
[2017-03-26] MEDS ORDERED: METHADONE HCL 40 MG DISPERSABLE TABLET ONE (05:24)
[2017-03-26] MEDS ORDERED: METHADONE HCL 10 MG TABLET ONE (05:24)
[2017-03-26] MEDS ORDERED: METHADONE HCL 40 MG DISPERSABLE TABLET PO SCH (06:00)
[2017-03-26] MEDS: GABAPENTIN 100 MG CAPSULE (FP) PO SCH ×3 (06:20→21:18)
[2017-03-26] MEDS: METHADONE 80 MG, METHADONE 20 MG PO SCH (06:20)
[2017-03-26] MEDS: MAG HYDROX/AL HYDROX/SIMETH 30 ML UNIT-DOSE CUP PO PRN ×2 (08:24→16:02)
[2017-03-26] MEDS: PRENATAL VITAMINS W/ FOLIC ACID TABLET (FP) PO SCH (09:51)
[2017-03-26] MEDS: RANOLAZINE E.R. 500 MG TABLET (FP) PO SCH (09:51)
[2017-03-26] MEDS: NICOTINE 21 MG/24 HOURS TOPICAL PATCH TD SCH (09:51)
[2017-03-26] MEDS ORDERED: PANTOPRAZOLE 40 MG TABLET (FP) PO SCH (10:00)
--- NOTE | 2017-03-26 10:33 | PN ---
S Progress Note (SOAP) Subjective: c/o GERD, protonix and mylanta not effective Objective: 03/26/17 10:32 Vital Signs - 8 hr 03/26/17 03/26/17 03/26/17 03:30 06:58 09:53 Temperature 98.5 F Pulse Rate 70 76 Respiratory 18 18 Rate Blood Pressure 119/80 110/73 labs reviewed Assessment: 03/26/17 10:33 d/c protonix, start zantac,
[2017-03-26] MEDS: RANITIDINE HCL 150 MG TABLET (FP) PO SCH ×2 (11:19→21:18)
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
[2017-03-26] MEDS: THIAMINE HCL 100 MG TABLET (FP) PO SCH (21:18)
[2017-03-27] MEDS: MAG HYDROX/AL HYDROX/SIMETH 30 ML UNIT-DOSE CUP PO PRN ×3 (01:17→15:57)
[2017-03-27] MEDS ORDERED: METHADONE HCL 10 MG TABLET ONE (03:28)
[2017-03-27] MEDS ORDERED: METHADONE HCL 40 MG DISPERSABLE TABLET ONE (03:29)
[2017-03-27] MEDS: METHADONE 80 MG, METHADONE 20 MG PO SCH (06:15)
[2017-03-27] MEDS: GABAPENTIN 100 MG CAPSULE (FP) PO SCH ×3 (06:15→21:10)
[2017-03-27] MEDS ORDERED: PT OWN MED DRAWER 7, Y5N ONE ×2 (09:25→15:57)
[2017-03-27] MEDS: PRENATAL VITAMINS W/ FOLIC ACID TABLET (FP) PO SCH (09:58)
[2017-03-27] MEDS: NICOTINE 21 MG/24 HOURS TOPICAL PATCH TD SCH (09:58)
[2017-03-27] MEDS: RANOLAZINE E.R. 500 MG TABLET (FP) PO SCH (09:58)
[2017-03-27] MEDS: RANITIDINE HCL 150 MG TABLET (FP) PO SCH ×2 (09:58→21:10)
[2017-03-27] MEDS: THIAMINE HCL 100 MG TABLET (FP) PO SCH (21:10)
[2017-03-28] MEDS ORDERED: METHADONE HCL 10 MG TABLET ONE (05:47)
[2017-03-28] MEDS ORDERED: METHADONE HCL 40 MG DISPERSABLE TABLET ONE (05:48)
[2017-03-28] MEDS: METHADONE 80 MG, METHADONE 20 MG PO SCH (06:11)
[2017-03-28] MEDS: GABAPENTIN 100 MG CAPSULE (FP) PO SCH ×3 (06:11→21:11)
[2017-03-28] MEDS ORDERED: PT OWN MED DRAWER 7, Y5N ONE (08:35)
[2017-03-28] MEDS: BISMUTH SUBSALICYLATE 262 MG/15 ML BTL PO SCH (10:24)
[2017-03-28] MEDS: NICOTINE 21 MG/24 HOURS TOPICAL PATCH TD SCH (10:24)
[2017-03-28] MEDS: PRENATAL VITAMINS W/ FOLIC ACID TABLET (FP) PO SCH (10:24)
[2017-03-28] MEDS: RANITIDINE HCL 150 MG TABLET (FP) PO SCH ×2 (10:24→21:11)
[2017-03-28] MEDS: RANOLAZINE E.R. 500 MG TABLET (FP) PO SCH (10:25)
[2017-03-28] MEDS ORDERED: diphenhydrAMINE HCL 50 MG CAPSULE PO PRN (15:06)
[2017-03-28] MEDS: THIAMINE HCL 100 MG TABLET (FP) PO SCH (21:12)
[2017-03-28] MEDS: MIRTAZAPINE 15 MG TABLET (FP) PO SCH (21:13)
[2017-03-29] MEDS ORDERED: METHADONE HCL 10 MG TABLET ONE (03:24)
[2017-03-29] MEDS ORDERED: METHADONE HCL 40 MG DISPERSABLE TABLET ONE (03:24)
[2017-03-29] MEDS: METHADONE 80 MG, METHADONE 20 MG PO SCH (06:48)
[2017-03-29] MEDS: GABAPENTIN 100 MG CAPSULE (FP) PO SCH ×3 (06:49→21:04)
[2017-03-29] MEDS: NICOTINE 21 MG/24 HOURS TOPICAL PATCH TD SCH (09:47)
[2017-03-29] MEDS: PRENATAL VITAMINS W/ FOLIC ACID TABLET (FP) PO SCH (09:48)
[2017-03-29] MEDS: BISMUTH SUBSALICYLATE 262 MG/15 ML BTL PO SCH (09:48)
[2017-03-29] MEDS: RANITIDINE HCL 150 MG TABLET (FP) PO SCH ×2 (09:48→21:04)
[2017-03-29] MEDS: RANOLAZINE E.R. 500 MG TABLET (FP) PO SCH (09:48)
[2017-03-29] MEDS: THIAMINE HCL 100 MG TABLET (FP) PO SCH (21:04)
[2017-03-29] MEDS: MIRTAZAPINE 15 MG TABLET (FP) PO SCH (21:04)
[2017-03-30] MEDS ORDERED: METHADONE HCL 40 MG DISPERSABLE TABLET ONE (03:14)
[2017-03-30] MEDS ORDERED: METHADONE HCL 10 MG TABLET ONE (03:14)
[2017-03-30] MEDS: METHADONE 80 MG, METHADONE 20 MG PO SCH (06:22)
[2017-03-30] MEDS: GABAPENTIN 100 MG CAPSULE (FP) PO SCH ×3 (06:23→21:07)
[2017-03-30] MEDS: BISMUTH SUBSALICYLATE 262 MG/15 ML BTL PO SCH (09:54)
[2017-03-30] MEDS: PRENATAL VITAMINS W/ FOLIC ACID TABLET (FP) PO SCH (09:55)
[2017-03-30] MEDS: RANOLAZINE E.R. 500 MG TABLET (FP) PO SCH (09:55)
[2017-03-30] MEDS: RANITIDINE HCL 150 MG TABLET (FP) PO SCH ×2 (09:55→21:07)
[2017-03-30] MEDS: NICOTINE 21 MG/24 HOURS TOPICAL PATCH TD SCH (09:56)
[2017-03-30] MEDS: THIAMINE HCL 100 MG TABLET (FP) PO SCH (21:07)
[2017-03-30] MEDS: MIRTAZAPINE 15 MG TABLET (FP) PO SCH (21:07)
[2017-03-31] MEDS ORDERED: METHADONE HCL 10 MG TABLET ONE (03:06)
[2017-03-31] MEDS ORDERED: METHADONE HCL 40 MG DISPERSABLE TABLET ONE (03:07)
[2017-03-31] MEDS: METHADONE 80 MG, METHADONE 20 MG PO SCH (06:44)
[2017-03-31] MEDS: GABAPENTIN 100 MG CAPSULE (FP) PO SCH ×3 (06:45→21:10)
[2017-03-31] MEDS: NICOTINE 21 MG/24 HOURS TOPICAL PATCH TD SCH (10:04)
[2017-03-31] MEDS: RANOLAZINE E.R. 500 MG TABLET (FP) PO SCH (10:06)
[2017-03-31] MEDS: BISMUTH SUBSALICYLATE 262 MG/15 ML BTL PO SCH (10:06)
[2017-03-31] MEDS: PRENATAL VITAMINS W/ FOLIC ACID TABLET (FP) PO SCH (10:07)
[2017-03-31] MEDS: RANITIDINE HCL 150 MG TABLET (FP) PO SCH ×2 (10:07→21:10)
[2017-03-31] MEDS ORDERED: PT OWN MED DRAWER 7, Y5N ONE (12:52)
[2017-03-31] MEDS: THIAMINE HCL 100 MG TABLET (FP) PO SCH (21:10)
[2017-03-31] MEDS: MIRTAZAPINE 15 MG TABLET (FP) PO SCH (21:10)
[2017-04-01] MEDS ORDERED: METHADONE HCL 40 MG DISPERSABLE TABLET ONE (06:30)
[2017-04-01] MEDS ORDERED: METHADONE HCL 10 MG TABLET ONE (06:30)
[2017-04-01] MEDS: METHADONE 80 MG, METHADONE 20 MG PO SCH (06:38)
[2017-04-01] MEDS: GABAPENTIN 100 MG CAPSULE (FP) PO SCH ×3 (06:39→21:09)
[2017-04-01] MEDS ORDERED: PT OWN MED DRAWER 7, Y5N ONE (08:22)
[2017-04-01] MEDS: BISMUTH SUBSALICYLATE 262 MG/15 ML BTL PO SCH (09:55)
[2017-04-01] MEDS: RANOLAZINE E.R. 500 MG TABLET (FP) PO SCH (09:55)
[2017-04-01] MEDS: NICOTINE 21 MG/24 HOURS TOPICAL PATCH TD SCH (09:55)
[2017-04-01] MEDS: PRENATAL VITAMINS W/ FOLIC ACID TABLET (FP) PO SCH (09:55)
[2017-04-01] MEDS: RANITIDINE HCL 150 MG TABLET (FP) PO SCH ×2 (09:55→21:09)
[2017-04-01] MEDS: MAGNESIUM HYDROX 2400MG/30ML ORAL SUSPENSION 30 ML CUP PO PRN (13:02)
[2017-04-01] MEDS: THIAMINE HCL 100 MG TABLET (FP) PO SCH (21:09)
[2017-04-01] MEDS: MIRTAZAPINE 15 MG TABLET (FP) PO SCH (21:10)
[2017-04-02] MEDS ORDERED: METHADONE HCL 40 MG DISPERSABLE TABLET ONE (05:46)
[2017-04-02] MEDS ORDERED: METHADONE HCL 10 MG TABLET ONE (05:46)
[2017-04-02] MEDS: METHADONE 80 MG, METHADONE 20 MG PO SCH (06:32)
[2017-04-02] MEDS: GABAPENTIN 100 MG CAPSULE (FP) PO SCH ×3 (06:32→21:07)
[2017-04-02] MEDS: NICOTINE 21 MG/24 HOURS TOPICAL PATCH TD SCH (10:05)
[2017-04-02] MEDS: BISMUTH SUBSALICYLATE 262 MG/15 ML BTL PO SCH (10:05)
[2017-04-02] MEDS: RANOLAZINE E.R. 500 MG TABLET (FP) PO SCH (10:06)
[2017-04-02] MEDS: RANITIDINE HCL 150 MG TABLET (FP) PO SCH ×2 (10:06→21:07)
[2017-04-02] MEDS: PRENATAL VITAMINS W/ FOLIC ACID TABLET (FP) PO SCH (10:06)
[2017-04-02] MEDS: MAG HYDROX/AL HYDROX/SIMETH 30 ML UNIT-DOSE CUP PO PRN (13:47)
[2017-04-02] MEDS ORDERED: diphenhydrAMINE HCL 50 MG CAPSULE PO PRN (16:07)
[2017-04-02] MEDS: NICOTINE POLACRILEX 2 MG GUM BUC PRN ×2 (17:42→21:09)
[2017-04-02] MEDS: THIAMINE HCL 100 MG TABLET (FP) PO SCH (21:07)
[2017-04-02] MEDS: MIRTAZAPINE 30 MG TABLET (FP) PO SCH (21:08)
[2017-04-03] MEDS ORDERED: METHADONE HCL 40 MG DISPERSABLE TABLET ONE (03:15)
[2017-04-03] MEDS ORDERED: METHADONE HCL 10 MG TABLET ONE (03:15)
[2017-04-03] MEDS: METHADONE 80 MG, METHADONE 20 MG PO SCH (06:19)
[2017-04-03] MEDS: GABAPENTIN 100 MG CAPSULE (FP) PO SCH ×3 (06:20→21:46)
[2017-04-03] MEDS ORDERED: PT OWN MED DRAWER 7, Y5N ONE ×2 (08:27→14:46)
[2017-04-03] MEDS: RANOLAZINE E.R. 500 MG TABLET (FP) PO SCH (09:49)
[2017-04-03] MEDS: PRENATAL VITAMINS W/ FOLIC ACID TABLET (FP) PO SCH (09:49)
[2017-04-03] MEDS: RANITIDINE HCL 150 MG TABLET (FP) PO SCH ×2 (09:49→21:46)
[2017-04-03] MEDS: NICOTINE 21 MG/24 HOURS TOPICAL PATCH TD SCH (09:49)
[2017-04-03] MEDS: BISMUTH SUBSALICYLATE 262 MG/15 ML BTL PO SCH (09:49)
[2017-04-03] MEDS: NICOTINE POLACRILEX 2 MG GUM BUC PRN ×2 (09:51→21:47)
[2017-04-03] MEDS: MIRTAZAPINE 30 MG TABLET (FP) PO SCH (21:46)
[2017-04-03] MEDS: THIAMINE HCL 100 MG TABLET (FP) PO SCH (21:46)
[2017-04-04] MEDS ORDERED: METHADONE HCL 40 MG DISPERSABLE TABLET ONE (03:03)
[2017-04-04] MEDS ORDERED: METHADONE HCL 10 MG TABLET ONE (03:03)
[2017-04-04] MEDS: GABAPENTIN 100 MG CAPSULE (FP) PO SCH ×3 (06:56→21:15)
[2017-04-04] MEDS: METHADONE 80 MG, METHADONE 20 MG PO SCH (06:56)
[2017-04-04] MEDS ORDERED: PT OWN MED DRAWER 7, Y5N ONE ×4 (08:11→15:01)
[2017-04-04] MEDS: RANITIDINE HCL 150 MG TABLET (FP) PO SCH ×2 (09:56→21:15)
[2017-04-04] MEDS: NICOTINE 21 MG/24 HOURS TOPICAL PATCH TD SCH (09:56)
[2017-04-04] MEDS: PRENATAL VITAMINS W/ FOLIC ACID TABLET (FP) PO SCH (09:56)
[2017-04-04] MEDS: RANOLAZINE E.R. 500 MG TABLET (FP) PO SCH (09:57)
[2017-04-04] MEDS: BISMUTH SUBSALICYLATE 262 MG/15 ML BTL PO SCH (09:57)
[2017-04-04] MEDS: NICOTINE POLACRILEX 2 MG GUM BUC PRN ×2 (11:05→21:16)
[2017-04-04] MEDS: AMMONIUM LACTATE 12% LOTION 225 GM BOTTLE TP PRN (14:00)
[2017-04-04] MEDS: MIRTAZAPINE 30 MG TABLET (FP) PO SCH (21:15)
[2017-04-04] MEDS: THIAMINE HCL 100 MG TABLET (FP) PO SCH (21:15)
[2017-04-05] MEDS ORDERED: METHADONE HCL 10 MG TABLET ONE (05:32)
[2017-04-05] MEDS ORDERED: METHADONE HCL 40 MG DISPERSABLE TABLET ONE (05:32)
[2017-04-05] MEDS: GABAPENTIN 100 MG CAPSULE (FP) PO SCH ×3 (06:43→21:14)
[2017-04-05] MEDS: METHADONE 80 MG, METHADONE 20 MG PO SCH (06:43)
[2017-04-05] MEDS ORDERED: PT OWN MED DRAWER 7, Y5N ONE ×2 (08:55→19:48)
[2017-04-05] MEDS: BISMUTH SUBSALICYLATE 262 MG/15 ML BTL PO SCH (09:42)
[2017-04-05] MEDS: PRENATAL VITAMINS W/ FOLIC ACID TABLET (FP) PO SCH (09:43)
[2017-04-05] MEDS: RANOLAZINE E.R. 500 MG TABLET (FP) PO SCH (09:43)
[2017-04-05] MEDS: RANITIDINE HCL 150 MG TABLET (FP) PO SCH ×2 (09:43→21:14)
[2017-04-05] MEDS: AMMONIUM LACTATE 12% LOTION 225 GM BOTTLE TP PRN (09:44)
[2017-04-05] MEDS: NICOTINE 21 MG/24 HOURS TOPICAL PATCH TD SCH (09:44)
[2017-04-05] MEDS: NICOTINE POLACRILEX 2 MG GUM BUC PRN ×3 (10:46→21:15)
--- NOTE | 2017-04-05 14:32 | PN ---
STAN Progress Note Note: patient complained of left side chest pain no difficulty in breathing history of coronary artery disease Vital Signs Temperature 98.5 F 04/05/17 12:55 Pulse Rate 73 04/05/17 12:55 Respiratory Rate 18 04/05/17 12:55 Blood Pressure 121/76 04/05/17 12:55 O2 Sat by Pulse Oximetry (%) pulse ox 97 ekg nsr,no acute change pain now subsided stated has been taking baby asa at home daily will give baby asa 81 mgs po daily started one now close monitoring
[2017-04-05] MEDS: ASPIRIN COATED 81 MG TABLET.EC PO SCH (14:41)
[2017-04-05] MEDS: MAGNESIUM HYDROX 2400MG/30ML ORAL SUSPENSION 30 ML CUP PO PRN (15:35)
[2017-04-05] MEDS: THIAMINE HCL 100 MG TABLET (FP) PO SCH (21:14)
[2017-04-05] MEDS: MIRTAZAPINE 30 MG TABLET (FP) PO SCH (21:14)
[2017-04-06] MEDS ORDERED: METHADONE HCL 10 MG TABLET ONE (05:37)
[2017-04-06] MEDS ORDERED: METHADONE HCL 40 MG DISPERSABLE TABLET ONE (05:38)
[2017-04-06] MEDS: GABAPENTIN 100 MG CAPSULE (FP) PO SCH ×3 (06:39→21:10)
[2017-04-06] MEDS: METHADONE 80 MG, METHADONE 20 MG PO SCH (06:39)
[2017-04-06] MEDS ORDERED: PT OWN MED DRAWER 7, Y5N ONE (09:13)
[2017-04-06] MEDS: RANOLAZINE E.R. 500 MG TABLET (FP) PO SCH (09:37)
[2017-04-06] MEDS: ASPIRIN COATED 81 MG TABLET.EC PO SCH (09:37)
[2017-04-06] MEDS: BISMUTH SUBSALICYLATE 262 MG/15 ML BTL PO SCH (09:38)
[2017-04-06] MEDS: RANITIDINE HCL 150 MG TABLET (FP) PO SCH ×2 (09:38→21:10)
[2017-04-06] MEDS: NICOTINE 21 MG/24 HOURS TOPICAL PATCH TD SCH (09:38)
[2017-04-06] MEDS: PRENATAL VITAMINS W/ FOLIC ACID TABLET (FP) PO SCH (09:38)
[2017-04-06] MEDS: NICOTINE POLACRILEX 2 MG GUM BUC PRN (10:30)
--- NOTE | 2017-04-06 11:39 | EKG ---
Test Reason : Blood Pressure : / mmHG Vent. Rate : 064 BPM Atrial Rate : 064 BPM P-R Int : 134 ms QRS Dur : 084 ms QT Int : 390 ms P-R-T Axes : 046 008 037 degrees QTc Int : 402 ms NORMAL SINUS RHYTHM NONSPECIFIC T WAVE ABNORMALITY ABNORMAL ECG WHEN COMPARED WITH ECG OF 20-MAR-2017 19:39, T WAVE INVERSION NO LONGER EVIDENT IN ANTERIOR LEADS Confirmed by FABIANA VENTURA MD ([id number]) on 04/06/2017 11:39:33 AM Referred By: Confirmed By:FABIANA VENTURA MD
[2017-04-06] MEDS: MIRTAZAPINE 30 MG TABLET (FP) PO SCH (21:10)
[2017-04-06] MEDS: THIAMINE HCL 100 MG TABLET (FP) PO SCH (21:10)
[2017-04-07] MEDS ORDERED: METHADONE HCL 10 MG TABLET ONE (05:39)
[2017-04-07] MEDS ORDERED: METHADONE HCL 40 MG DISPERSABLE TABLET ONE (05:40)
[2017-04-07] MEDS: METHADONE 80 MG, METHADONE 20 MG PO SCH (06:15)
[2017-04-07] MEDS: GABAPENTIN 100 MG CAPSULE (FP) PO SCH ×3 (07:05→21:11)
[2017-04-07] MEDS ORDERED: PT OWN MED DRAWER 7, Y5N ONE (08:28)
[2017-04-07] MEDS: RANITIDINE HCL 150 MG TABLET (FP) PO SCH ×2 (10:02→21:11)
[2017-04-07] MEDS: RANOLAZINE E.R. 500 MG TABLET (FP) PO SCH (10:03)
[2017-04-07] MEDS: NICOTINE 21 MG/24 HOURS TOPICAL PATCH TD SCH (10:03)
[2017-04-07] MEDS: ASPIRIN COATED 81 MG TABLET.EC PO SCH (10:03)
[2017-04-07] MEDS: PRENATAL VITAMINS W/ FOLIC ACID TABLET (FP) PO SCH (10:03)
[2017-04-07] MEDS: BISMUTH SUBSALICYLATE 262 MG/15 ML BTL PO SCH (10:03)
--- NOTE | 2017-04-07 14:58 | PN ---
Psychiatric Progress Note Vital Signs: Vital Signs Period Temp Pulse Resp BP Sys/Caicedo Pulse Ox Last 24 Hr 98.1 F 62-77 16-18 125-157/82-82 Date of Session: 04/07/17 Chief Complaint:: Discharge visit HPI: Patient addressed Opioid,Cocaine and Alcohol dependence comorbid with substance induced mood disorder. ROS: Significant for GERD,CAD. Current Medications: Active Medications Generic Name Dose Route Start Last Admin Trade Name Freq PRN Reason Stop Dose Admin Acetaminophen 650 mg 03/25/17 14:49 03/26/17 20:01 Tylenol - PO 650 mg Q4H PRN Administration FEVER OR PAIN Al Hydroxide/Mg Hydroxide 30 ml 03/25/17 14:49 04/02/17 13:47 Mylanta Oral Suspension - PO 30 ml Q6H PRN Administration DYSPEPSIA Aspirin 81 mg 04/05/17 14:30 04/07/17 10:03 Ecotrin - PO 81 mg DAILY TORI Administration Bismuth Subsalicylate 30 ml 03/28/17 10:00 04/07/17 10:03 Pepto-Bismol Liquid - PO 30 ml DAILY TORI Administration Diphenhydramine HCl 100 mg 04/02/17 16:07 Benadryl - PO HS PRN INSOMNIA Eucalyptus/Menthol/Phenol/Sorbitol 1 each 03/25/17 14:49 Cepastat Lozenge - MM Q4H PRN SORE THROAT Gabapentin 100 mg 03/25/17 22:00 04/07/17 13:28 Neurontin - PO 100 mg TID TORI Administration Guaifenesin 10 ml 03/25/17 14:49 Robitussin Dm - PO Q6H PRN COUGH Lactic Acid 1 applic 04/03/17 13:27 04/05/17 09:44 Lac-Hydrin 12 TP 1 applic BID PRN Administration DRY SKIN Magnesium Citrate 300 ml 03/25/17 14:49 Citroma - PO Q48H PRN CONSTIPATION Magnesium Hydroxide 30 ml 03/25/17 14:49 04/05/17 15:35 Milk Of Magnesia - PO 30 ml DAILY PRN Administration CONSTIPATION Methadone HCl 80 mg/ Methadone 100 mg 04/08/17 06:00 HCl 20 mg PO 04/15/17 05:59 DAILY@0600 TORI Mirtazapine 30 mg 04/02/17 22:00 04/06/17 21:10 Remeron - PO 30 mg HS TORI Administration Nicotine 21 mg 03/26/17 10:00 04/07/17 10:03 Nicoderm Patch - TD 21 mg DAILY TORI Administration Nicotine Polacrilex 2 mg 03/25/17 14:51 04/06/17 10:30 Nicorette Gum - BUC 2 mg Q2H PRN Administration NICOTINE REPLACEMENT RX Multivit/Folic Acid/Iron 1 tab 03/26/17 10:00 04/07/17 10:03 Vitamins (Sjr) - PO 1 tab DAILY TORI Administration Pseudoephedrine/Triprolidine 1 combo 03/25/17 14:49 Actifed - PO TID PRN NASAL CONGESTION Ranitidine HCl 150 mg 03/26/17 10:45 04/07/17 10:02 Zantac - PO 150 mg BID TORI Administration Ranolazine 1,000 mg 03/26/17 10:00 04/07/17 10:03 Ranexa - PO 1,000 mg DAILY TORI Administration Thiamine HCl 100 mg 03/25/17 22:00 04/06/17 21:10 Vitamin B1 - PO 100 mg HS TORI Administration Current Side Effect: No Lab tests ordered: No Lab tests reviewed: Yes Provider note:: Patient will complete this program tomorrow 04/08/17.She has met her treatment goals and will continue to address her issues on outpatient basis .Patient reports finding that Remeron 30 mg po hs and Neurontin 100 mg po tid help to cope with mood instability,anxiety,depression.Scripts for 30 days supply provided. Supportive therapy provided focusing on relapse prevention.Coping skills,support utilizayion has been discussed with the patient as well aa other resourses to maintain recovery process. Emotional support provided. Patient is stable for discharge tomorrow 04/08/17. Total face to face time:: 30 Mental Status Exam - Mental Status Exam Alert and Oriented to: Time, Place, Person Cognitive Function: Grossly Intact Patient Appearance: Well Groomed Mood: Euthymic Affect: Mood Congruent Patient Behavior: Appropriate, Cooperative Speech Pattern: Clear Voice Loudness: Normal Thought Process: Goal Oriented Thought Disorder: Not Present Hallucinations: Denies Suicidal Ideation: Denies Homicidal Ideation: Denies Insight/Judgement: Fair Sleep: Fair Appetite: Good Muscle strength/Tone: Normal Gait/Station: Normal Psychiatric Treatment Plan - Problem List (1) GERD (gastroesophageal reflux disease) Current Visit: Yes (2) Opioid dependence on agonist therapy Current Visit: Yes (3) Cocaine dependence Current Visit: Yes Qualifiers: Substance use status: uncomplicated Qualified Code(s): F14.20 - Cocaine dependence, uncomplicated (4) Alcohol dependence Current Visit: Yes (5) Nicotine dependence Current Visit: Yes Qualifiers: Nicotine product type: cigarettes Substance use status: uncomplicated Qualified Code(s): F17.210 - Nicotine dependence, cigarettes, uncomplicated (6) CAD (coronary artery disease) Current Visit: Yes (7) Substance induced mood disorder Current Visit: Yes
[2017-04-07] MEDS: MAGNESIUM HYDROX 2400MG/30ML ORAL SUSPENSION 30 ML CUP PO PRN (18:13)
[2017-04-07] MEDS: MIRTAZAPINE 30 MG TABLET (FP) PO SCH (21:11)
[2017-04-07] MEDS: THIAMINE HCL 100 MG TABLET (FP) PO SCH (21:11)
[2017-04-08] MEDS ORDERED: METHADONE 80 MG, METHADONE 20 MG PO SCH (06:00)
[2017-04-08] MEDS ORDERED: METHADONE HCL 10 MG TABLET ONE (06:06)
[2017-04-08] MEDS ORDERED: METHADONE HCL 40 MG DISPERSABLE TABLET ONE (06:06)
[2017-04-08] MEDS: GABAPENTIN 100 MG CAPSULE (FP) PO SCH (06:14)
[2017-04-08 06:38] VITALS: BP 132/85; PULSE 65; TEMP 97.9
[2017-04-08] MEDS ORDERED: PT OWN MED DRAWER 7, Y5N ONE (08:23)
[2017-04-08] MEDS: RANITIDINE HCL 150 MG TABLET (FP) PO SCH (10:00)
[2017-04-08] MEDS: ASPIRIN COATED 81 MG TABLET.EC PO SCH (10:00)
[2017-04-08] MEDS: RANOLAZINE E.R. 500 MG TABLET (FP) PO SCH (10:00)
[2017-04-08] MEDS: PRENATAL VITAMINS W/ FOLIC ACID TABLET (FP) PO SCH (10:00)
[2017-04-08] MEDS: BISMUTH SUBSALICYLATE 262 MG/15 ML BTL PO SCH (10:01)
[2017-04-08] MEDS: NICOTINE 21 MG/24 HOURS TOPICAL PATCH TD SCH (10:01)
== END 2017-04-08 11:00 | disposition home or self-care (01) | DRG 772 ==
LOC: YASAS 13:51 → Y3E 13:52
PROVIDERS: ADMIT Psychiatry & Neurology Psychiatry; ATTEND Psychiatry & Neurology Psychiatry
PROC: HZ42ZZZ Group Counseling for Substance Abuse Treatment, Cognitive-Behavioral (ICD-10-PCS; principal; 2017-03-25)
DX: F10.20 Alcohol dependence, uncomplicated (principal); F11.20 Opioid dependence, uncomplicated; F14.20 Cocaine dependence, uncomplicated; F17.210 Nicotine dependence, cigarettes, uncomplicated; F19.24 Other psychoactive substance dependence with psychoactive substance-induced mood disorder; I25.10 Atherosclerotic heart disease of native coronary artery without angina pectoris; K21.9 Gastro-esophageal reflux disease without esophagitis
CPT/HCPCS: 93005; 93010

== ENCOUNTER 2017-06-10 10:43 | Inpatient (IN) | payer OTHER ==
[2017-06-10 13:10] VITALS: BMI 21.2
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
[2017-06-10] MEDS ORDERED: P-EPHED 60MG/TRIPROLIDI 2.5MG TABLET PO PRN (14:46)
[2017-06-10] MEDS ORDERED: IBUPROFEN 400 MG TABLET (FP) PO PRN (14:46)
[2017-06-10] MEDS ORDERED: MAGNESIUM HYDROX 2400MG/30ML ORAL SUSPENSION 30 ML CUP PO PRN (14:46)
[2017-06-10] MEDS ORDERED: ACETAMINOPHEN 325 MG TABLET (FP) PO PRN (14:46)
[2017-06-10] MEDS ORDERED: MAGNESIUM CITRATE 300 ML BOTTLE PO PRN (14:46)
[2017-06-10] MEDS ORDERED: LOPERAMIDE HCL 2 MG CAPSULE PO PRN (14:46)
[2017-06-10] MEDS ORDERED: MAG HYDROX/AL HYDROX/SIMETH 30 ML UNIT-DOSE CUP PO PRN (14:46)
[2017-06-10] MEDS ORDERED: chlordiazePOXIDE HCL 25 MG CAPSULE PO PRN (14:46)
[2017-06-10] MEDS ORDERED: MENTHOL/PHENOL 1 EACH UD MM PRN (14:46)
[2017-06-10] MEDS ORDERED: guaiFENesin/D-METHORPHAN HB 10 ML UNIT-DOSE CUPS PO PRN (14:46)
[2017-06-10] MEDS ORDERED: ALBUTEROL SO4 18 GM HFA INHALER IH PRN (14:53)
[2017-06-10] MEDS ORDERED: chlordiazePOXIDE HCL 25 MG CAPSULE PO ONE (15:15)
[2017-06-10] MEDS: NICOTINE 21 MG/24 HOURS TOPICAL PATCH TD SCH (15:52)
[2017-06-10] MEDS: chlordiazePOXIDE HCL 25 MG CAPSULE PO SCH ×2 (17:16→22:08)
[2017-06-10 20:06] LABS: URINE APPEARANCE CLEAR; URINE BILIRUBIN NEGATIVE (NEGATIVE); URINE BLOOD 1+ (NEGATIVE); URINE COLOR DKYELLOW; URINE GLUCOSE (UA) NEGATIVE (NEGATIVE); URINE KETONE NEGATIVE (NEGATIVE); URINE NITRITE NEGATIVE (NEGATIVE); URINE PROTEIN NEGATIVE (NEGATIVE); URINE UROBILINOGEN 4.0 E.U/dl mg/dL (0.2-1.0)
[2017-06-10 20:20] LABS: URINE LEUK ESTERASE 1+ (NEGATIVE)
[2017-06-10 20:23] LABS: EPI CELLS RARE /HPF (FEW); URINE BACTERIA RARE /hpf (NONE SEEN); URINE HYALINE CAST 2 /lpf; URINE MUCUS RARE
[2017-06-10] MEDS: THIAMINE HCL 100 MG TABLET (FP) PO SCH (22:08)
[2017-06-11] MEDS: chlordiazePOXIDE HCL 25 MG CAPSULE PO SCH ×4 (05:12→22:42)
[2017-06-11] MEDS ORDERED: METHADONE HCL 10 MG TABLET PO SCH (09:00)
--- NOTE | 2017-06-11 09:35 | CONSULT ---
[facility] Psychiatric Consult - Data Date of interview: 06/11/17 Admission source: [facility] Identifying data: This is 62 years old female, mother of two, homeless, on PA, unemploed, withy no psychiatric hospitalization history, is here for detox from Alcohol, Cannabis, Crack and Nicotine Substance Abuse History: Smoking history: Current every day smoker. Have you smoked in the past 12 months: Yes. Aproximately how many cigarettes per day: 20. Hx Chewing Tobacco Use: No. Initiated information on smoking cessation: Yes. 'Breaking Loose' booklet given: 06/10/17. - Substance & Tx. History. Hx Alcohol Use: Yes. Hx Substance Use: Yes. Substance Use Type: Alcohol, Cocaine , Marijuana. Hx Substance Use Treatment: Yes ([facility] 03/20/17 TO 03/25/17 [facility], REHAB 03/25/17 TO 04/08/17). - Substances Abused. Alcohol. Route: Oral. Frequency: Daily. Amount used: 1 pint jeanie. Age of first use: 17. Date of Last Use: 06/09/17. Crack. Route: Smoking. Frequency: Daily. Amount used : $200. Age of first use: 32. Date of Last Use: 06/09/17. Marijuana/ Hashish. Route: Smoking. Frequency: Daily. Amount used: 1 joint. Age of first use: 17. Date of Last Use: 06/09/17. Urine Drug Screen Results: THC- Marijuana, PIPER-Cocaine, OPI-Opiates, MTD-Methadone Medical History: Weight loss history, CAD, Syncope history, Chest pain history, Psychiatric History: Patient reports history of depression and anxiety, reports taking prior to admission: Remeron 45mg po qhs Physical/Sexual Abuse/Trauma History: Denies Additional Comment: Urine Drug Screen Results: THC-Marijuana, PIPER-Cocaine, OPI- Opiates, MTD-Methadone. Remeron 45mg po qhs Mental Status Exam - Mental Status Exam Alert and Oriented to: Person Cognitive Function: Fair Patient Appearance: Unkempt Mood: Anxious Affect: Constricted Patient Behavior: Guarded, Cooperative Speech Pattern: Appropriate Voice Loudness: Normal Thought Process: Goal Oriented Thought Disorder: Being Controlled Hallucinations: Denies Suicidal Ideation: Denies Homicidal Ideation: Denies Insight/Judgement: Fair Sleep: Difficulty falling asleep Appetite: Fair, Weight loss Muscle strength/Tone: Mild Hypotonicity Gait/Station: Normal Additional Comments: Remeron 45mg po qhs Psychiatric Findings - Problem List ([facility] 1, 2,3) (1) Alcohol dependence Current Visit: No Status: Chronic (2) Cocaine dependence Current Visit: No Status: Chronic Qualifiers: Substance use status: uncomplicated Qualified Code(s): F14.20 - Cocaine dependence, uncomplicated (3) Nicotine dependence Current Visit: No Status: Chronic Qualifiers: Nicotine product type: cigarettes Substance use status: uncomplicated Qualified Code(s): F17.210 - Nicotine dependence, cigarettes, uncomplicated (4) Opioid dependence on agonist therapy Current Visit: No Status: Chronic (5) Substance induced mood disorder Current Visit: No Status: Chronic - Initial Treatment Plan Initial Treatment Plan: Remeron 45mg po qhs
--- NOTE | 2017-06-11 10:17 | EKG ---
Test Reason : Blood Pressure : / mmHG Vent. Rate : 054 BPM Atrial Rate : 054 BPM P-R Int : 126 ms QRS Dur : 082 ms QT Int : 498 ms P-R-T Axes : 070 015 001 degrees QTc Int : 472 ms SINUS BRADYCARDIA VOLTAGE CRITERIA FOR LEFT VENTRICULAR HYPERTROPHY ABNORMAL ECG WHEN COMPARED WITH ECG OF 05-APR-2017 14:05, NONSPECIFIC T WAVE ABNORMALITY NOW EVIDENT IN INFERIOR LEADS QT HAS LENGTHENED Confirmed by SHELIA MCKENNA, SHASHA ([id number]) on 06/11/2017 10:17:11 AM Referred By: Confirmed By:SHASHA BASS MD
--- NOTE | 2017-06-11 10:18 | PN ---
S CIWA - CIWA Score Nausea/Vomitin Muscle Tremors: 3 Anxiety: 3 Agitation: 3 Paroxysmal Sweats: 1-Minimal Palms Moist Orientation: 0-Oriented Tacttile Disturbances: 1-Very Mild Itch/Numbness Auditory Disturbances: 1-Very Mild Visual Disturbances: 1-Very Mild Sensitivity Headache: 2-Mild CIWA-Ar Total Score: 18 BHS Progress Note (SOAP) Subjective: ALERT, Objective: 06/11/17 10:20 Vital Signs Temperature 97.9 F 06/11/17 06:07 Pulse Rate 65 06/11/17 06:07 Respiratory Rate 18 06/11/17 06:30 Blood Pressure 120/67 06/11/17 06:07 O2 Sat by Pulse Oximetry (%) 06/11/17 10:20 EKG NSR,NON SPECIFIC T NO CHEST PAIN,NO SOB,NO DIZZINESS Laboratory Last Values Urine Color Dkyellow 06/10/17 15:00 Urine Appearance Clear 06/10/17 15:00 Urine pH 5.0 (5.0-8.0) 06/10/17 15:00 Ur Specific [place] 1.017 (1.001-1.035) 06/10/17 15:00 Urine Protein Negative (NEGATIVE) 06/10/17 15:00 Urine Glucose (UA) Negative (NEGATIVE) 06/10/17 15:00 Urine Ketones Negative (NEGATIVE) 06/10/17 15:00 Urine Blood 1+ (NEGATIVE) H 06/10/17 15:00 Urine Nitrite Negative (NEGATIVE) 06/10/17 15:00 Urine Bilirubin Negative (NEGATIVE) 06/10/17 15:00 Urine Urobilinogen 4.0 e.u/dl mg/dL (0.2-1.0) H 06/10/17 15:00 Ur Leukocyte Esterase 1+ (NEGATIVE) H 06/10/17 15:00 Urine WBC (Auto) 2 /hpf (3-5) 06/10/17 15:00 Urine RBC (Auto) 6 /hpf (0-3) 06/10/17 15:00 Ur Epithelial Cells Rare /HPF (FEW) 06/10/17 15:00 Urine Bacteria Rare /hpf (NONE SEEN) 06/10/17 15:00 Hyaline Casts 2 /lpf 06/10/17 15:00 Urine Mucus Rare 06/10/17 15:00 LABS PENDING Assessment: 06/11/17 10:22 WITHDRAWAL SYMPTOM Plan: CONTINUE DETOX
[2017-06-11] MEDS: PRENATAL VITAMINS W/ FOLIC ACID TABLET (FP) PO SCH (10:21)
--- NOTE | 2017-06-11 10:30 | PN ---
[facility] Progress Note Note: Psychiatry Attending's note : Called by SANDHYA Hughes. Issue : suicidal threats by patient. Overheard by staff as per reporting nurse. Intervention : Constant Observation (1:1) ordered STAT. Pending psychiatric re-evaluation. Contact Dr Yoon. Already saw patient today @ 9:34 AM. His consult note : appreciated. Special Events Planner will follow. Discussed with SANDHYA Vega. Via telephone.
[2017-06-11 10:44] LABS: CHLORIDE 103 mmol/L (98-107); SODIUM 140 mmol/L (136-145)
[2017-06-11] MEDS ORDERED: METHADONE HCL 10 MG TABLET ONE (10:51)
[2017-06-11] MEDS ORDERED: METHADONE HCL 40 MG DISPERSABLE TABLET ONE (10:51)
[2017-06-11] MEDS: METHADONE 160 MG, METHADONE 10 MG PO SCH (10:51)
--- NOTE | 2017-06-11 10:54 | PN ---
Psychiatric Progress Note Vital Signs: Vital Signs Period Temp Pulse Resp BP Sys/Caicedo Pulse Ox Last 24 Hr 97.7 F-98.1 F 64-75 16-20 120-148/66-78 Date of Session: 06/11/17 Chief Complaint:: Suicidal ideation HPI: Patient evaluated, chert reviewed. 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 Patient refusing suicidal ideations and motivated to continue detox protocol and follow [facility] after. 1;1 OBSERVATION TO D/C. Start risterdal 2mg po bid as well Current Medications: Active Medications Generic Name Dose Route Start Last Admin Trade Name Freq PRN Reason Stop Dose Admin Acetaminophen 650 mg 06/10/17 14:46 Tylenol - PO Q4H PRN FEVER Al Hydroxide/Mg Hydroxide 30 ml 06/10/17 14:46 Mylanta Oral Suspension - PO Q6H PRN DYSPEPSIA Albuterol Sulfate 2 puff 06/10/17 14:53 Ventolin Hfa Inhaler - IH Q4H PRN SHORT OF BREATH/WHEEZING Chlordiazepoxide HCl 50 mg 06/10/17 17:00 06/11/17 10:22 Librium - PO 06/11/17 11:01 50 mg [id number] TORI Administration Chlordiazepoxide HCl 25 mg 06/11/17 17:00 Librium - PO 06/12/17 11:01 [id number] TORI Chlordiazepoxide HCl 15 mg 06/12/17 17:00 Librium - PO 06/13/17 11:01 [id number] TORI Chlordiazepoxide HCl 25 mg 06/10/17 14:46 Librium - PO 06/13/17 14:45 Q4H PRN WITHDRAWAL(CONT SUBST) Chlordiazepoxide HCl 10 mg 06/13/17 17:00 Librium - PO 06/14/17 11:01 [id number] TORI Eucalyptus/Menthol/Phenol/Sorbitol 1 each 06/10/17 14:46 Cepastat Lozenge - MM Q4H PRN SORE THROAT Guaifenesin 10 ml 06/10/17 14:46 Robitussin Dm - PO Q6H PRN COUGH Ibuprofen 400 mg 06/10/17 14:46 Motrin - PO Q6H PRN PAIN LEVEL 4-6 Loperamide HCl 4 mg 06/10/17 14:46 Imodium - PO Q6H PRN DIARRHEA Magnesium Citrate 300 ml 06/10/17 14:46 Citroma - PO Q48H PRN CONSTIPATION Magnesium Hydroxide 30 ml 06/10/17 14:46 Milk Of Magnesia - PO DAILY PRN CONSTIPATION Methadone HCl 160 mg/ 170 mg 06/11/17 09:20 Methadone HCl 10 mg PO 06/18/17 09:19 DAILY@0600 TORI Mirtazapine 45 mg 06/11/17 22:00 Remeron - PO HS TORI Nicotine 21 mg 06/10/17 15:30 06/10/17 15:52 Nicoderm Patch - TD 21 mg DAILY TORI Administration Multivit/Folic Acid/Iron 1 tab 06/11/17 10:00 06/11/17 10:21 Vitamins (Sjr) - PO 1 tab DAILY TORI Administration Pseudoephedrine/Triprolidine 1 combo 06/10/17 14:46 Actifed - PO TID PRN NASAL CONGESTION Ranolazine 1,000 mg 06/11/17 10:00 Ranexa - PO DAILY [facility] Risperidone 2 mg 06/11/17 10:45 Risperdal - PO BID [facility] Thiamine HCl 100 mg 06/10/17 22:00 06/10/17 22:08 Vitamin B1 - PO 100 mg HS TORI Administration Medication(s) Change(s): Risperdal 2mg po bid Mental Status Exam - Mental Status Exam Alert and Oriented to: Person Cognitive Function: Fair Patient Appearance: Unkempt Mood: Nervous Affect: Mood Congruent Patient Behavior: Cooperative Speech Pattern: Delayed Voice Loudness: Mildly Soft/Quiet Thought Process: Goal Oriented Thought Disorder: Being Controlled Hallucinations: Denies Suicidal Ideation: Denies Homicidal Ideation: Denies Insight/Judgement: Fair Sleep: Difficulty falling asleep Appetite: Fair Muscle strength/Tone: Normal Gait/Station: Normal Additional Comments: Seroquel 100mg po qhs. Remeron 45mg po qhs Psychiatric Treatment Plan - Problem List (1) Alcohol dependence Current Visit: No (2) Cocaine dependence Current Visit: No Qualifiers: Substance use status: uncomplicated Qualified Code(s): F14.20 - Cocaine dependence, uncomplicated (3) Nicotine dependence Current Visit: No Qualifiers: Nicotine product type: cigarettes Substance use status: uncomplicated Qualified Code(s): F17.210 - Nicotine dependence, cigarettes, uncomplicated (4) Opioid dependence on agonist therapy Current Visit: No (5) Substance induced mood disorder Current Visit: No (6) MDD (major depressive disorder) Current Visit: Yes Qualifiers: Major depression recurrence: single episode Initial treatment plan: Seroquel 100mg po qhs. Remeron 45mg po qhs
[2017-06-11] MEDS: NICOTINE 21 MG/24 HOURS TOPICAL PATCH TD SCH (10:55)
[2017-06-11] MEDS: RANOLAZINE E.R. 500 MG TABLET (FP) PO SCH (10:55)
[2017-06-11] MEDS: risperiDONE 2 MG TABLET PO SCH ×2 (10:56→22:43)
[2017-06-11 11:05] LABS: ALK PHOS 85 U/L (45-117); ANION GAP 12 (8-16); BILIRUBIN,TOTAL 0.6 mg/dL (0.2-1.0); BLOOD UREA NITROGEN 14 mg/dL (7-18); CALCIUM 9.4 mg/dL (8.5-10.1); CO2 25 mmol/L (21-32); CREATININE 0.7 mg/dL (0.55-1.02); GLUCOSE,RANDOM 71 mg/dL (74-106); SGOT/AST 43 U/L (15-37); SGPT/ALT 35 U/L (12-78); TOT PROT 8.2 g/dl (6.4-8.2)
[2017-06-11 11:40] LABS: HEMATOCRIT 42.5 % (32.4-45.2); HEMOGLOBIN 14.9 GM/dL (10.7-15.3); MCH 35.3 pg (25.7-33.7); MEAN CELL VOLUME 100.6 fl (80-96); MEAN PLT VOLUME 8.5 fl (7.5-11.1); PLATELET COUNT 255 K/MM3 (134-434); RBC 4.23 M/mm3 (3.60-5.2); RDW 13.9 % (11.6-15.6); WHITE BLOOD COUNT 9.8 K/mm3 (4.0-10.0)
--- NOTE | 2017-06-11 15:36 | PN ---
[facility] Progress Note Note: Laboratory Last Values WBC 9.8 K/mm3 (4.0-10.0) D 06/11/17 05:45 RBC 4.23 M/mm3 (3.60-5.2) 06/11/17 05:45 Hgb 14.9 GM/dL (10.7-15.3) 06/11/17 05:45 Hct 42.5 % (32.4-45.2) 06/11/17 05:45 MCV 100.6 fl (80-96) H 06/11/17 05:45 MCH 35.3 pg (25.7-33.7) H 06/11/17 05:45 MCHC 35.0 g/dl (32.0-36.0) 06/11/17 05:45 RDW 13.9 % (11.6-15.6) 06/11/17 05:45 Plt Count 255 K/MM3 (134-434) 06/11/17 05:45 MPV 8.5 fl (7.5-11.1) 06/11/17 05:45 Sodium 140 mmol/L (136-145) 06/11/17 05:45 Potassium 4.0 mmol/L (3.5-5.1) 06/11/17 05:45 Chloride 103 mmol/L (98-107) 06/11/17 05:45 Carbon Dioxide 25 mmol/L (21-32) 06/11/17 05:45 Anion Gap 12 (8-16) 06/11/17 05:45 BUN 14 mg/dL (7-18) 06/11/17 05:45 Creatinine 0.7 mg/dL (0.55-1.02) 06/11/17 05:45 Creat Clearance w eGFR > 60 (>60) 06/11/17 05:45 Random Glucose 71 mg/dL (74-106) L 06/11/17 05:45 Calcium 9.4 mg/dL (8.5-10.1) 06/11/17 05:45 Total Bilirubin 0.6 mg/dL (0.2-1.0) D 06/11/17 05:45 AST 43 U/L (15-37) H 06/11/17 05:45 ALT 35 U/L (12-78) 06/11/17 05:45 Alkaline Phosphatase 85 U/L (45-117) 06/11/17 05:45 Ammonia 49.01 umol/L (11-32) H 06/11/17 11:00 Total Protein 8.2 g/dl (6.4-8.2) 06/11/17 05:45 Albumin 4.0 g/dl (3.4-5.0) 06/11/17 05:45 Urine Color Dkyellow 06/10/17 15:00 Urine Appearance Clear 06/10/17 15:00 Urine pH 5.0 (5.0-8.0) 06/10/17 15:00 Ur Specific [place] 1.017 (1.001-1.035) 06/10/17 15:00 Urine Protein Negative (NEGATIVE) 06/10/17 15:00 Urine Glucose (UA) Negative (NEGATIVE) 06/10/17 15:00 Urine Ketones Negative (NEGATIVE) 06/10/17 15:00 Urine Blood 1+ (NEGATIVE) H 06/10/17 15:00 Urine Nitrite Negative (NEGATIVE) 06/10/17 15:00 Urine Bilirubin Negative (NEGATIVE) 06/10/17 15:00 Urine Urobilinogen 4.0 e.u/dl mg/dL (0.2-1.0) H 06/10/17 15:00 Ur Leukocyte Esterase 1+ (NEGATIVE) H 06/10/17 15:00 Urine WBC (Auto) 2 /hpf (3-5) 06/10/17 15:00 Urine RBC (Auto) 6 /hpf (0-3) 06/10/17 15:00 Ur Epithelial Cells Rare /HPF (FEW) 06/10/17 15:00 Urine Bacteria Rare /hpf (NONE SEEN) 06/10/17 15:00 Hyaline Casts 2 /lpf 06/10/17 15:00 Urine Mucus Rare 06/10/17 15:00 RPR Titer Nonreactive (NONREACTIVE) 06/11/17 05:45 ammonia level is 49.01 lactulose 20 grams po bid d/c tylenol
[2017-06-11] MEDS ORDERED: LACTULOSE 20 GM/30 ML UDC (FOR ORAL USE ONLY) PO ONE (16:15)
[2017-06-11] MEDS: MIRTAZAPINE 15 MG TABLET (FP) PO SCH (22:43)
[2017-06-11] MEDS: LACTULOSE 20 GM/30 ML UDC (FOR ORAL USE ONLY) PO SCH (22:47)
[2017-06-11] MEDS: THIAMINE HCL 100 MG TABLET (FP) PO SCH (23:50)
[2017-06-12] MEDS ORDERED: METHADONE HCL 40 MG DISPERSABLE TABLET ONE (04:27)
[2017-06-12] MEDS ORDERED: METHADONE HCL 10 MG TABLET ONE (04:28)
[2017-06-12] MEDS: METHADONE 160 MG, METHADONE 10 MG PO SCH (05:15)
[2017-06-12] MEDS: chlordiazePOXIDE HCL 25 MG CAPSULE PO SCH ×2 (05:15→11:14)
--- NOTE | 2017-06-12 09:55 | PN ---
S CIWA - CIWA Score Nausea/Vomitin Muscle Tremors: 3 Anxiety: 3 Agitation: 2 Paroxysmal Sweats: 1-Minimal Palms Moist Orientation: 0-Oriented Tacttile Disturbances: 1-Very Mild Itch/Numbness Auditory Disturbances: 1-Very Mild Visual Disturbances: 0-None Headache: 2-Mild CIWA-Ar Total Score: 16 [facility] Progress Note (SOAP) Subjective: ALERT,IRRITABLE,ANXIOUS,INTERRUPTED SLEEP,TREMOR,NO SUICIDAL,NO HOMICIDAL Objective: 06/12/17 09:54 Vital Signs Temperature 98.1 F 06/12/17 09:50 Pulse Rate 62 06/12/17 09:50 Respiratory Rate 14 06/12/17 09:50 Blood Pressure 101/59 06/12/17 09:50 O2 Sat by Pulse Oximetry (%) Laboratory Last Values WBC 9.8 K/mm3 (4.0-10.0) D 06/11/17 05:45 RBC 4.23 M/mm3 (3.60-5.2) 06/11/17 05:45 Hgb 14.9 GM/dL (10.7-15.3) 06/11/17 05:45 Hct 42.5 % (32.4-45.2) 06/11/17 05:45 MCV 100.6 fl (80-96) H 06/11/17 05:45 MCH 35.3 pg (25.7-33.7) H 06/11/17 05:45 MCHC 35.0 g/dl (32.0-36.0) 06/11/17 05:45 RDW 13.9 % (11.6-15.6) 06/11/17 05:45 Plt Count 255 K/MM3 (134-434) 06/11/17 05:45 MPV 8.5 fl (7.5-11.1) 06/11/17 05:45 Sodium 140 mmol/L (136-145) 06/11/17 05:45 Potassium 4.0 mmol/L (3.5-5.1) 06/11/17 05:45 Chloride 103 mmol/L (98-107) 06/11/17 05:45 Carbon Dioxide 25 mmol/L (21-32) 06/11/17 05:45 Anion Gap 12 (8-16) 06/11/17 05:45 BUN 14 mg/dL (7-18) 06/11/17 05:45 Creatinine 0.7 mg/dL (0.55-1.02) 06/11/17 05:45 Creat Clearance w eGFR > 60 (>60) 06/11/17 05:45 Random Glucose 71 mg/dL (74-106) L 06/11/17 05:45 Calcium 9.4 mg/dL (8.5-10.1) 06/11/17 05:45 Total Bilirubin 0.6 mg/dL (0.2-1.0) D 06/11/17 05:45 AST 43 U/L (15-37) H 06/11/17 05:45 ALT 35 U/L (12-78) 06/11/17 05:45 Alkaline Phosphatase 85 U/L (45-117) 06/11/17 05:45 Ammonia 49.01 umol/L (11-32) H 06/11/17 11:00 Total Protein 8.2 g/dl (6.4-8.2) 06/11/17 05:45 Albumin 4.0 g/dl (3.4-5.0) 06/11/17 05:45 Urine Color Dkyellow 06/10/17 15:00 Urine Appearance Clear 06/10/17 15:00 Urine pH 5.0 (5.0-8.0) 06/10/17 15:00 Ur Specific [place] 1.017 (1.001-1.035) 06/10/17 15:00 Urine Protein Negative (NEGATIVE) 06/10/17 15:00 Urine Glucose (UA) Negative (NEGATIVE) 06/10/17 15:00 Urine Ketones Negative (NEGATIVE) 06/10/17 15:00 Urine Blood 1+ (NEGATIVE) H 06/10/17 15:00 Urine Nitrite Negative (NEGATIVE) 06/10/17 15:00 Urine Bilirubin Negative (NEGATIVE) 06/10/17 15:00 Urine Urobilinogen 4.0 e.u/dl mg/dL (0.2-1.0) H 06/10/17 15:00 Ur Leukocyte Esterase 1+ (NEGATIVE) H 06/10/17 15:00 Urine WBC (Auto) 2 /hpf (3-5) 06/10/17 15:00 Urine RBC (Auto) 6 /hpf (0-3) 06/10/17 15:00 Ur Epithelial Cells Rare /HPF (FEW) 06/10/17 15:00 Urine Bacteria Rare /hpf (NONE SEEN) 06/10/17 15:00 Hyaline Casts 2 /lpf 06/10/17 15:00 Urine Mucus Rare 06/10/17 15:00 RPR Titer Nonreactive (NONREACTIVE) 06/11/17 05:45 Assessment: 06/12/17 09:55 WITHDRAWAL SYMPTOM Plan: CONTINUE DETOX,CONTINUE LACTULOSE 20 GRAMS PO BID FOR ELEVATION OF AMMONIA 49.01
[2017-06-12] MEDS: risperiDONE 2 MG TABLET PO SCH ×2 (11:14→22:20)
[2017-06-12] MEDS: PRENATAL VITAMINS W/ FOLIC ACID TABLET (FP) PO SCH (11:14)
[2017-06-12] MEDS: RANOLAZINE E.R. 500 MG TABLET (FP) PO SCH (11:14)
[2017-06-12] MEDS: LACTULOSE 20 GM/30 ML UDC (FOR ORAL USE ONLY) PO SCH ×2 (11:15→22:20)
[2017-06-12] MEDS: NICOTINE 21 MG/24 HOURS TOPICAL PATCH TD SCH (11:15)
--- NOTE | 2017-06-12 16:45 | EKG ---
Test Reason : Blood Pressure : / mmHG Vent. Rate : 069 BPM Atrial Rate : 069 BPM P-R Int : 116 ms QRS Dur : 082 ms QT Int : 344 ms P-R-T Axes : 054 001 010 degrees QTc Int : 368 ms NORMAL SINUS RHYTHM NONSPECIFIC T WAVE ABNORMALITY ABNORMAL ECG WHEN COMPARED WITH ECG OF 10-JUN-2017 14:42, QT HAS SHORTENED Confirmed by ALVAREZ MENDEZ MD ([id number]) on 06/12/2017 4:44:43 PM Referred By: Confirmed By:ALVAREZ MENDEZ MD
[2017-06-12] MEDS: chlordiazePOXIDE 5 MG CAPSULE PO SCH ×2 (17:56→22:20)
[2017-06-12] MEDS: THIAMINE HCL 100 MG TABLET (FP) PO SCH (22:20)
[2017-06-12] MEDS: MIRTAZAPINE 15 MG TABLET (FP) PO SCH (22:20)
[2017-06-13] MEDS ORDERED: METHADONE HCL 40 MG DISPERSABLE TABLET ONE (04:11)
[2017-06-13] MEDS ORDERED: METHADONE HCL 10 MG TABLET ONE (04:11)
[2017-06-13] MEDS: METHADONE 160 MG, METHADONE 10 MG PO SCH (05:10)
[2017-06-13] MEDS: chlordiazePOXIDE 5 MG CAPSULE PO SCH ×2 (05:10→11:51)
--- NOTE | 2017-06-13 10:06 | PN ---
S Progress Note (SOAP) Subjective: ALERT,IRRITABLE,ANXIOUS,INTERRUPTED SLEEP Objective: 06/13/17 10:05 Vital Signs Temperature 98.1 F 06/13/17 06:00 Pulse Rate 72 06/13/17 06:00 Respiratory Rate 16 06/13/17 06:30 Blood Pressure 117/66 06/13/17 06:00 O2 Sat by Pulse Oximetry (%) Assessment: 06/13/17 10:05 WITHDRAWAL SYMPTOM Plan: DISCHARGE IN AM
[2017-06-13] MEDS: PRENATAL VITAMINS W/ FOLIC ACID TABLET (FP) PO SCH ×2 (11:46→12:00)
[2017-06-13] MEDS: risperiDONE 2 MG TABLET PO SCH ×3 (11:46→22:45)
[2017-06-13] MEDS: RANOLAZINE E.R. 500 MG TABLET (FP) PO SCH ×2 (11:46→12:00)
[2017-06-13] MEDS: NICOTINE 21 MG/24 HOURS TOPICAL PATCH TD SCH (11:47)
[2017-06-13] MEDS: LACTULOSE 20 GM/30 ML UDC (FOR ORAL USE ONLY) PO SCH ×2 (11:48→22:47)
[2017-06-13] MEDS: chlordiazePOXIDE HCL 10 MG CAPSULE PO SCH ×2 (18:23→22:45)
[2017-06-13] MEDS: THIAMINE HCL 100 MG TABLET (FP) PO SCH (22:44)
[2017-06-13] MEDS: MIRTAZAPINE 15 MG TABLET (FP) PO SCH (22:45)
[2017-06-14] MEDS ORDERED: METHADONE HCL 10 MG TABLET ONE (04:54)
[2017-06-14] MEDS ORDERED: METHADONE HCL 40 MG DISPERSABLE TABLET ONE (04:54)
[2017-06-14] MEDS: METHADONE 160 MG, METHADONE 10 MG PO SCH (05:15)
[2017-06-14] MEDS: chlordiazePOXIDE HCL 10 MG CAPSULE PO SCH ×2 (05:15→12:48)
[2017-06-14] MEDS: PRENATAL VITAMINS W/ FOLIC ACID TABLET (FP) PO SCH (10:11)
[2017-06-14] MEDS: RANOLAZINE E.R. 500 MG TABLET (FP) PO SCH (10:11)
[2017-06-14] MEDS: LACTULOSE 20 GM/30 ML UDC (FOR ORAL USE ONLY) PO SCH ×2 (10:12→23:15)
[2017-06-14] MEDS: risperiDONE 2 MG TABLET PO SCH ×2 (10:12→23:13)
--- NOTE | 2017-06-14 11:06 | PN ---
S Progress Note (SOAP) Subjective: ALERT,FEEL WEAK,SLEEPY,ON LACTULOSE FOR ELEVATION OF AMMONIA Objective: 06/14/17 11:04 Vital Signs Temperature 96.6 F L 06/14/17 09:48 Pulse Rate 72 06/14/17 09:48 Respiratory Rate 18 06/14/17 09:48 Blood Pressure 145/78 06/14/17 09:48 O2 Sat by Pulse Oximetry (%) Assessment: 06/14/17 11:04 WITHDRAWAL SYMPTOM Plan: WILL HOLD ON DISCHARGE,REPEAT AMMONIA LEVEL IN AM,CLOSE MONITORING
[2017-06-14] MEDS: NICOTINE 21 MG/24 HOURS TOPICAL PATCH TD SCH (12:48)
[2017-06-14] MEDS: MIRTAZAPINE 15 MG TABLET (FP) PO SCH (23:13)
[2017-06-14] MEDS: THIAMINE HCL 100 MG TABLET (FP) PO SCH (23:13)
[2017-06-15] MEDS ORDERED: METHADONE HCL 10 MG TABLET ONE (05:07)
[2017-06-15] MEDS ORDERED: METHADONE HCL 40 MG DISPERSABLE TABLET ONE (05:07)
[2017-06-15] MEDS: METHADONE 160 MG, METHADONE 10 MG PO SCH (06:58)
[2017-06-15] MEDS: LACTULOSE 20 GM/30 ML UDC (FOR ORAL USE ONLY) PO SCH ×2 (11:17→22:20)
[2017-06-15] MEDS: RANOLAZINE E.R. 500 MG TABLET (FP) PO SCH (11:18)
[2017-06-15] MEDS: NICOTINE 21 MG/24 HOURS TOPICAL PATCH TD SCH (11:18)
[2017-06-15] MEDS: risperiDONE 2 MG TABLET PO SCH ×2 (11:18→22:18)
[2017-06-15] MEDS: PRENATAL VITAMINS W/ FOLIC ACID TABLET (FP) PO SCH (11:18)
--- NOTE | 2017-06-15 14:25 | PN ---
[facility] Progress Note (SOAP) Subjective: sleep most of the time easy to aroused ambulate slow steady able to feed self and chew and swallow regular food, denies pain denies alteration urination nor bowel movement Objective: 06/15/17 14:28 Vital Signs Temperature 96.1 F L 06/15/17 14:18 Pulse Rate 71 06/15/17 14:18 Respiratory Rate 20 06/15/17 14:18 Blood Pressure 115/70 06/15/17 14:18 O2 Sat by Pulse Oximetry (%) Laboratory Last Values WBC 9.8 K/mm3 (4.0-10.0) D 06/11/17 05:45 RBC 4.23 M/mm3 (3.60-5.2) 06/11/17 05:45 Hgb 14.9 GM/dL (10.7-15.3) 06/11/17 05:45 Hct 42.5 % (32.4-45.2) 06/11/17 05:45 MCV 100.6 fl (80-96) H 06/11/17 05:45 MCH 35.3 pg (25.7-33.7) H 06/11/17 05:45 MCHC 35.0 g/dl (32.0-36.0) 06/11/17 05:45 RDW 13.9 % (11.6-15.6) 06/11/17 05:45 Plt Count 255 K/MM3 (134-434) 06/11/17 05:45 MPV 8.5 fl (7.5-11.1) 06/11/17 05:45 Sodium 140 mmol/L (136-145) 06/11/17 05:45 Potassium 4.0 mmol/L (3.5-5.1) 06/11/17 05:45 Chloride 103 mmol/L (98-107) 06/11/17 05:45 Carbon Dioxide 25 mmol/L (21-32) 06/11/17 05:45 Anion Gap 12 (8-16) 06/11/17 05:45 BUN 14 mg/dL (7-18) 06/11/17 05:45 Creatinine 0.7 mg/dL (0.55-1.02) 06/11/17 05:45 Creat Clearance w eGFR > 60 (>60) 06/11/17 05:45 Random Glucose 71 mg/dL (74-106) L 06/11/17 05:45 Calcium 9.4 mg/dL (8.5-10.1) 06/11/17 05:45 Total Bilirubin 0.6 mg/dL (0.2-1.0) D 06/11/17 05:45 AST 43 U/L (15-37) H 06/11/17 05:45 ALT 35 U/L (12-78) 06/11/17 05:45 Alkaline Phosphatase 85 U/L (45-117) 06/11/17 05:45 Ammonia 51.70 umol/L (11-32) H 06/15/17 08:00 Total Protein 8.2 g/dl (6.4-8.2) 06/11/17 05:45 Albumin 4.0 g/dl (3.4-5.0) 06/11/17 05:45 Urine Color Dkyellow 06/10/17 15:00 Urine Appearance Clear 06/10/17 15:00 Urine pH 5.0 (5.0-8.0) 06/10/17 15:00 Ur Specific [place] 1.017 (1.001-1.035) 06/10/17 15:00 Urine Protein Negative (NEGATIVE) 06/10/17 15:00 Urine Glucose (UA) Negative (NEGATIVE) 06/10/17 15:00 Urine Ketones Negative (NEGATIVE) 06/10/17 15:00 Urine Blood 1+ (NEGATIVE) H 06/10/17 15:00 Urine Nitrite Negative (NEGATIVE) 06/10/17 15:00 Urine Bilirubin Negative (NEGATIVE) 06/10/17 15:00 Urine Urobilinogen 4.0 e.u/dl mg/dL (0.2-1.0) H 06/10/17 15:00 Ur Leukocyte Esterase 1+ (NEGATIVE) H 06/10/17 15:00 Urine WBC (Auto) 2 /hpf (3-5) 06/10/17 15:00 Urine RBC (Auto) 6 /hpf (0-3) 06/10/17 15:00 Ur Epithelial Cells Rare /HPF (FEW) 06/10/17 15:00 Urine Bacteria Rare /hpf (NONE SEEN) 06/10/17 15:00 Hyaline Casts 2 /lpf 06/10/17 15:00 Urine Mucus Rare 06/10/17 15:00 RPR Titer Nonreactive (NONREACTIVE) 06/11/17 05:45 lab noted Assessment: 06/15/17 14:28 ammonia elevation 5.1 06/15/17 14:31 substance misuse disorder Plan: increase lactulose tid discharged to [facility] in patient chemical detox
[2017-06-15] MEDS: THIAMINE HCL 100 MG TABLET (FP) PO SCH (22:18)
[2017-06-15] MEDS: MIRTAZAPINE 15 MG TABLET (FP) PO SCH (22:18)
[2017-06-16] MEDS: LACTULOSE 20 GM/30 ML UDC (FOR ORAL USE ONLY) PO SCH (05:29)
[2017-06-16] MEDS ORDERED: METHADONE HCL 40 MG DISPERSABLE TABLET ONE (05:34)
[2017-06-16] MEDS ORDERED: METHADONE HCL 10 MG TABLET ONE (05:35)
[2017-06-16 06:58] VITALS: BP 116/77; PULSE 74; TEMP 97.7
--- NOTE | 2017-06-16 09:46 | PN ---
S Progress Note (SOAP) Subjective: ALERT,NO COMPLAINT Objective: 06/16/17 09:42 Vital Signs Temperature 97.7 F 06/16/17 06:57 Pulse Rate 74 06/16/17 06:57 Respiratory Rate 20 06/16/17 06:57 Blood Pressure 116/77 06/16/17 06:57 O2 Sat by Pulse Oximetry (%) Assessment: 06/16/17 09:43 DETOX COMPLETED,NO WITHDRAWAL SYMPTOM Laboratory Results - last 24 hr 06/15/17 08:00 Ammonia 51.70 H Plan: DISCHARGE FROM DETOX TO REHAB [facility],ON LACTULOSE 2 GRAMS PO TID FOR ELEVATION OF AMMONIA, AMMONIA LEVEL 51.7
--- NOTE | 2017-06-16 09:51 | DS ---
[facility] Detox Discharge Summary Admission Date: 06/10/17 Discharge Date: 06/16/17 - History Present History: Alcohol Dependence, MMTP Additional Comments: FOLLOW UP WITH AFTER CARE PROGRAM ARRANGEMENT Pertinent Past History: SYNCOPE CORONARY ARTERY DISEASE NICOTINE DEPENDENCE WEIGHT LOSS - Physical Exam Results Vital Signs: Vital Signs Temperature 97.7 F 06/16/17 06:57 Pulse Rate 74 06/16/17 06:57 Respiratory Rate 20 06/16/17 06:57 Blood Pressure 116/77 06/16/17 06:57 O2 Sat by Pulse Oximetry (%) Pertinent Admission Physical Exam Findings: WITHDRAWAL SIGN AND SYMPTOM - Treatment Hospital Course: Detox Protocol Followed, Detoxed Safely, Responded well, Discharged Condition Good, Rehab Referral Accepted Patient has Accepted a Rehab Referral to: [facility] - Medication Discharge Medications: Ambulatory Orders Gabapentin [Neurontin -] 100 mg PO TID #90 capsule 04/07/17 Mirtazapine [Remeron -] 30 mg PO HS #30 tablet 04/07/17 Mirtazapine [Remeron [DO NOT STOCK]] 45 mg PO DAILY #30 tab 06/11/17 Risperidone [Risperdal -] 2 mg PO BID #60 tablet 06/11/17 Albuterol Sulfate Inhaler - [Ventolin HFA Inhaler -] 2 inh PO Q4H PRN #1 inhaler 06/13/17 Lactulose (Oral Use) [Cephulac -] 20 gm PO BID #14 udc 06/13/17 Ranolazine [Ranexa -] 1,000 mg PO DAILY #30 tab 06/13/17 - Diagnosis (1) Alcohol dependence with uncomplicated withdrawal Current Visit: No Status: Acute (2) Weight loss Current Visit: Yes Status: Acute (3) Chest pain Current Visit: No Status: Acute (4) CAD (coronary artery disease) Current Visit: No Status: Chronic (5) Cocaine dependence Current Visit: No Status: Chronic Qualifiers: Substance use status: uncomplicated Qualified Code(s): F14.20 - Cocaine dependence, uncomplicated (6) Nicotine dependence Current Visit: No Status: Chronic Qualifiers: Nicotine product type: cigarettes Substance use status: uncomplicated Qualified Code(s): F17.210 - Nicotine dependence, cigarettes, uncomplicated (7) Opioid dependence on agonist therapy Current Visit: No Status: Chronic (8) Syncope Current Visit: Yes Status: Acute (9) Depression Current Visit: No Status: Chronic (10) Increased ammonia level Current Visit: Yes Status: Acute - AMA Did Patient Leave Against Medical Advice: No
[2017-06-16] MEDS: RANOLAZINE E.R. 500 MG TABLET (FP) PO SCH (10:21)
[2017-06-16] MEDS: PRENATAL VITAMINS W/ FOLIC ACID TABLET (FP) PO SCH (10:21)
[2017-06-16] MEDS: NICOTINE 21 MG/24 HOURS TOPICAL PATCH TD SCH (10:21)
[2017-06-16] MEDS: risperiDONE 2 MG TABLET PO SCH (10:22)
[2017-06-16] MEDS: METHADONE 160 MG, METHADONE 10 MG PO SCH (11:00)
[2017-06-16] MEDS ORDERED: LACTULOSE 20 GM/30 ML UDC (FOR ORAL USE ONLY) PO SCH (14:00)
== END 2017-06-16 11:02 | disposition home or self-care (01) | DRG 773 ==
LOC: YASAS 10:43 → Y6N 14:45
PROVIDERS: ADMIT Internal Medicine; ATTEND Internal Medicine
PROC: HZ2ZZZZ Detoxification Services for Substance Abuse Treatment (ICD-10-PCS; principal; 2017-06-10)
DX: F11.20 Opioid dependence, uncomplicated (principal); F10.230 Alcohol dependence with withdrawal, uncomplicated; F14.20 Cocaine dependence, uncomplicated; F17.210 Nicotine dependence, cigarettes, uncomplicated; F19.24 Other psychoactive substance dependence with psychoactive substance-induced mood disorder; F32.9 Major depressive disorder, single episode, unspecified; R79.89 Other specified abnormal findings of blood chemistry; R63.4 Abnormal weight loss; Z68.21 Body mass index [BMI] 21.0-21.9, adult; Z87.42 Personal history of other diseases of the female genital tract; Z91.5 Personal history of self-harm
CPT/HCPCS: 36415; 80053; 81003; 81015; 82140; 85027; 86593; 93005; 93010

== ENCOUNTER 2018-03-04 16:05 | Inpatient (IN) | payer OTHER ==
[2018-03-04 16:58] VITALS: BMI 20.5
--- NOTE | 2018-03-04 20:40 | HP ---
CIWA Score - Admission Criteria [facility] Guidelines: Admission for Medically Managed Detox: Requires at least one of the followin. CIWA greater than 12 2. Seizures within the past 24 hours 3. Delirium tremens within the past 24 hours 4. Hallucinations within the past 24 hours 5. Acute intervention needed for co occurring medical disorder 6. Acute intervention needed for co occurring psychiatric disorder 7. Severe withdrawal that cannot be handled at a lower level of care (continued vomiting, continued diarrhea, abnormal vital signs) requiring intravenous medication and/or fluids 8. Admission ROS [facility] Chief Complaint: SEEKING REHAB SERVICES FOR COCAINE DEPENDENCE Allergies/Adverse Reactions: Allergies Allergy/AdvReac Type Severity Reaction Status Date / Time Sulfa (Sulfonamide Allergy Severe Swelling Verified 03/04/18 19:09 Antibiotics) History of Present Illness: 62 Y.O. FEMALE WITH OPIOID AND COCAINE DEPNEDNENCE. ADMITTED TO REHAB. CLIENT IS ON METHADONE MAINTENANCE 115MG AT START AGENCY. SHE REPORTS SHE WAS LAST MEDICATED TODAY. PENDING VERIFICATION. SHE IS KNOWN TO US LAST HERE 05/2017. SHE IS REFERRED BY HER OUTPATIENT COUNSELOR. DENIES ANY SIGNIFICANT PERIOD OF CLEAN TIME. DENIES HX/O OVERDOSE, SEIZURES, AVH, SI/HI. SHE REPORTS SHE IS HOMLESS. PMHX- ANGINA, NUEROPATHY PSYCH- DENIES MEDS- [place] Exam Limitations: No Limitations - Ebola screening Have you traveled outside of the country in the last 21 days: No Have you had contact with anyone from an Ebola affected area: No Have you been sick,other than usual withdrawal symptoms: No - Review of Systems Constitutional: Loss of Appetite, Changes in sleep EENT: reports: Dental Problems (DENTURES UPPER), Other (LEFT EYE TWITCHING DUE TO A NERVE CONDITION) Respiratory: reports: No Symptoms reported Cardiac: reports: No Symptoms Reported GI: reports: Poor Appetite : reports: No Symptoms Reported Musculoskeletal: reports: No Symptoms Reported Integumentary: reports: No Symptoms Reported Neuro: reports: Numbness (LEFT FACIAL 2/2 TO OLD INJURY) Endocrine: reports: No Symptoms Reported Hematology: reports: No Symptoms Reported Psychiatric: reports: Anxious Other Systems: Reviewed and Negative Patient History - Patient Medical History Hx Anemia: No Hx Asthma: No Hx Chronic Obstructive Pulmonary Disease (COPD): No Hx Cancer: No Hx Cardiac Disorders: Yes (Angina) Hx Congestive Heart Failure: No Hx Hypertension: Yes Hx Hypercholesterolemia: No Hx Pacemaker: No HX Cerebrovascular Accident: No Hx Seizures: No Hx Dementia: No Hx Diabetes: No Hx Gastrointestinal Disorders: Yes (GERD) Hx Liver Disease: No Hx Genitourinary Disorders: No Hx Sexually Transmitted Disorders: Yes (Syphilis) Hx Renal Disease (ESRD): No Hx Thyroid Disease: No Hx Human Immunodeficiency Virus (HIV): No Hx Hepatitis C: No Hx Depression: Yes Hx Suicide Attempt: Yes (With pills in 1994 and 2012 by jumping of fire excape) Hx Bipolar Disorder: No Hx Schizophrenia: No Other Medical History: DENIES - Patient Surgical History Past Surgical History: Yes Hx Neurologic Surgery: No Hx Cataract Extraction: No Hx Cardiac Surgery: No Hx Lung Surgery: No Hx Breast Surgery: No Hx Breast Biopsy: No Hx Abdominal Surgery: Yes (splenectomy) Hx Appendectomy: No Hx Cholecystectomy: No Hx Genitourinary Surgery: No Hx Section: No Hx Orthopedic Surgery: No Anesthesia Reaction: No - PPD History Previous Implant?: Yes Documented Results: Negative w/proof Implanted On Prior [facility] Admission?: Yes Date: 03/22/17 Results: 0mm PPD to be Administered?: No - Reproductive History Patient is a Female of Child Bearing Age (11 -55 yrs old): No Last Menstrual Period: 02/29/12 Patient : No (NEG [facility] [place]) - Smoking Cessation Smoking history: Current every day smoker Have you smoked in the past 12 months: Yes Aproximately how many cigarettes per day: 20 Cigars Per Day: 0 Hx Chewing Tobacco Use: No Initiated information on smoking cessation: Yes 'Breaking Loose' booklet given: 03/04/18 - Substance & Tx. History Hx Alcohol Use: No Hx Substance Use: Yes Substance Use Type: Cocaine Hx Substance Use Treatment: Yes ([facility]) - Substances Abused COCAINE Route: Inhalation Frequency: 1-2 times per week Amount used: $50 Age of first use: 32 Date of Last Use: 02/28/18 Family Disease History - Family Disease History Family History: Denies Admission Physical Exam S - Vital Signs Vital Signs: Vital Signs - 24 hr 03/04/18 16:55 Temperature 97.7 F Pulse Rate 72 Respiratory 18 Rate Blood Pressure 117/78 - Physical General Appearance: Yes: No Apparent Distress, Appropriately Dressed HEENTM: Yes: EOMI, Normocephalic, Normal Voice, SABRINA, Pharynx Normal, Other ( UPPER DENTURES) Respiratory: Yes: Chest Non-Tender, Lungs Clear, Normal Breath Sounds, No Respiratory Distress, No Accessory Muscle Use Neck: Yes: No masses,lesions,Nodules, Supple, Trachea in good position Breast: Yes: Breast Exam Deferred Cardiology: Yes: Regular Rhythm, Regular Rate, S1, S2 Abdominal: Yes: Normal Bowel Sounds, Non Tender, Soft, Protuberent, Surgical Scar Genitourinary: Yes: Within Normal Limits (NO C/O) Back: Yes: Normal Inspection Musculoskeletal: Yes: full range of Motion, Gait Steady Extremities: Yes: Normal Inspection, Normal Range of Motion, Non-Tender Neurological: Yes: Fully Oriented, Alert, Motor Strength 5/5 Integumentary: Yes: Dry, Warm Lymphatic: Yes: Within Normal Limits - Diagnostic (1) Angina concurrent with and due to arteriosclerosis of coronary artery Current Visit: Yes Status: Chronic (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 (3) Cocaine dependence Current Visit: Yes Status: Chronic Qualifiers: (4) GERD (gastroesophageal reflux disease) Current Visit: Yes Status: Chronic (5) Nicotine dependence Current Visit: Yes Status: Chronic Qualifiers: Nicotine product type: cigarettes Substance use status: uncomplicated Qualified Code(s): F17.210 - Nicotine dependence, cigarettes, uncomplicated (6) Opioid dependence on agonist therapy Current Visit: Yes Status: Chronic (7) Constipation Current Visit: Yes Status: Acute Cleared for Admission [facility] - Detox or Rehab Detox Regimen/Protocol: Not Applicable Claeared for Rehab Admission: Yes [facility] Breath Alcohol Content Breath Alcohol Content: 0 Urine Pregancy Test - Result Urine Test Results: Negative- NO Line Present Urine Drug Screen - Results Drug Screen Negative: No Urine Drug Screen Results: PIPER-Cocaine, OPI-Opiates, MTD-Methadone Inpatient Rehab Admission - Initial Determination Are CD services needed?: Yes Free of communicable disease: Yes Not in need of hospitalization: Yes - Rehab Admission Criteria Previous failed treatment: Yes Poor recovery environment: Yes Comorbidities: Yes Lacks judgement: No Patient is meeting Inpatient Rehab admission criteria:: Yes
[2018-03-04] MEDS ORDERED: MENTHOL/PHENOL 1 EACH UD MM PRN (20:51)
[2018-03-04] MEDS ORDERED: ACETAMINOPHEN 325 MG TABLET (FP) PO PRN (20:51)
[2018-03-04] MEDS ORDERED: NICOTINE POLACRILEX 2 MG GUM BC PRN (20:51)
[2018-03-04] MEDS ORDERED: P-EPHED 60MG/TRIPROLIDI 2.5MG TABLET PO PRN (20:51)
[2018-03-04] MEDS ORDERED: LOPERAMIDE HCL 2 MG CAPSULE PO PRN (20:51)
[2018-03-04] MEDS ORDERED: MAG HYDROX/AL HYDROX/SIMETH 30 ML UNIT-DOSE CUP PO PRN (20:51)
[2018-03-04] MEDS ORDERED: MAGNESIUM HYDROX 2400MG/30ML ORAL SUSPENSION 30 ML CUP PO PRN (20:51)
[2018-03-04] MEDS ORDERED: MAGNESIUM CITRATE 300 ML BOTTLE PO PRN (20:51)
[2018-03-04] MEDS ORDERED: guaiFENesin/D-METHORPHAN HB 10 ML UNIT-DOSE CUPS PO PRN (20:51)
[2018-03-04] MEDS: THIAMINE HCL 100 MG TABLET (FP) PO SCH (23:34)
[2018-03-04] MEDS: LACTULOSE 20 GM/30 ML UDC (FOR ORAL USE ONLY) PO SCH (23:34)
[2018-03-04] MEDS: MELATONIN 5 MG TABLETS PO PRN (23:34)
[2018-03-04] MEDS: GABAPENTIN 100 MG CAPSULE (FP) PO SCH (23:37)
[2018-03-05 00:05] LABS: URINE APPEARANCE CLEAR; URINE BILIRUBIN NEGATIVE (<2.0 mg/dL); URINE COLOR YELLOW; URINE GLUCOSE (UA) NEGATIVE (NEGATIVE); URINE KETONE NEGATIVE (NEGATIVE); URINE LEUK ESTERASE 1+ (NEGATIVE); URINE NITRITE NEGATIVE (NEGATIVE); URINE PROTEIN NEGATIVE (NEGATIVE); URINE UROBILINOGEN NEGATIVE mg/dL (0.2-1.0)
[2018-03-05 00:11] LABS: EPI CELLS FEW /HPF (FEW); URINE HYALINE CAST 1 /lpf; URINE MUCUS RARE
[2018-03-05] MEDS: LACTULOSE 20 GM/30 ML UDC (FOR ORAL USE ONLY) PO SCH ×3 (06:48→21:08)
[2018-03-05] MEDS: GABAPENTIN 100 MG CAPSULE (FP) PO SCH ×3 (06:48→21:08)
[2018-03-05] MEDS ORDERED: METHADONE HCL 10 MG TABLET PO SCH (07:45)
[2018-03-05] MEDS ORDERED: METHADONE HCL 40 MG DISPERSABLE TABLET ONE (08:05)
[2018-03-05] MEDS ORDERED: METHADONE HCL 5 MG TABLET ONE (08:05)
[2018-03-05] MEDS ORDERED: METHADONE HCL 10 MG TABLET ONE (08:05)
[2018-03-05] MEDS: METHADONE 80 MG, METHADONE 30 MG, METHADONE 5 MG PO SCH (08:07)
[2018-03-05] MEDS ORDERED: PT OWN MED DRAWER 7, Y5N ONE (08:29)
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
[2018-03-05] MEDS: amLODIPine BESYLATE 10 MG TABLET (FP) PO SCH (10:14)
[2018-03-05] MEDS: RANOLAZINE E.R. 500 MG TABLET (FP) PO SCH ×2 (10:15→21:08)
[2018-03-05] MEDS: NICOTINE 21 MG/24 HOURS TOPICAL PATCH TD SCH (10:18)
[2018-03-05] MEDS: PRENATAL VITAMINS W/ FOLIC ACID TABLET (FP) PO SCH (10:18)
--- NOTE | 2018-03-05 10:31 | EKG ---
Test Reason : Blood Pressure : / mmHG Vent. Rate : 055 BPM Atrial Rate : 055 BPM P-R Int : 150 ms QRS Dur : 080 ms QT Int : 476 ms P-R-T Axes : 049 011 042 degrees QTc Int : 455 ms SINUS BRADYCARDIA MODERATE VOLTAGE CRITERIA FOR LVH, MAY BE NORMAL VARIANT NONSPECIFIC T WAVE ABNORMALITY ABNORMAL ECG WHEN COMPARED WITH ECG OF 11-JUN-2017 09:05, NONSPECIFIC T WAVE ABNORMALITY NO LONGER EVIDENT IN INFERIOR LEADS NONSPECIFIC T WAVE ABNORMALITY NOW EVIDENT IN ANTERIOR LEADS QT HAS LENGTHENED Confirmed by ANDREA MCKENNA, ALVAREZ ([id number]) on 03/05/2018 10:30:44 AM Referred By: Confirmed By:ALVAREZ MENDEZ MD
--- NOTE | 2018-03-05 11:26 | PN ---
[facility] Progress Note Note: EXTERNAL MEDICATION H/O SHOWS PATIENT PRESCRIBED AMLODIPINE 10MG FOR HTN. MEDICATION ORDERED. Vital Signs Temperature 97.8 F 03/05/18 07:23 Pulse Rate 64 03/05/18 09:36 Respiratory Rate 18 03/05/18 07:23 Blood Pressure 113/71 03/05/18 09:36 O2 Sat by Pulse Oximetry (%)
[2018-03-05] MEDS ORDERED: amLODIPine BESYLATE 10 MG TABLET (FP) PO SCH (11:30)
[2018-03-05 14:38] LABS: HEMATOCRIT 40.3 % (32.4-45.2); HEMOGLOBIN 12.9 GM/dL (10.7-15.3); MCH 31.6 pg (25.7-33.7); MCHC 31.9 g/dl (32.0-36.0); MEAN CELL VOLUME 99.1 fl (80-96); MEAN PLT VOLUME 8.3 fl (7.5-11.1); PLATELET COUNT 246 K/MM3 (134-434); RBC 4.07 M/mm3 (3.60-5.2); RDW 14.6 % (11.6-15.6); WHITE BLOOD COUNT 6.5 K/mm3 (4.0-10.0)
[2018-03-05 14:55] LABS: ALBUMIN 3.3 g/dl (3.4-5.0); ALK PHOS 95 U/L (45-117); ANION GAP 7 MMOL/L (8-16); BILIRUBIN,TOTAL 0.2 mg/dL (0.2-1); BLOOD UREA NITROGEN 14 mg/dL (7-18); CALCIUM 8.2 mg/dL (8.5-10.1); CHLORIDE 106 mmol/L (98-107); CO2 27 mmol/L (21-32); CREATININE 0.7 mg/dL (0.55-1.3); GLUCOSE,RANDOM 96 mg/dL (74-106); POTASSIUM 4.1 mmol/L (3.5-5.1); SGOT/AST 23 U/L (15-37); SGPT/ALT 24 U/L (13-61); SODIUM 140 mmol/L (136-145); TOT PROT 6.9 g/dl (6.4-8.2)
[2018-03-05] MEDS: THIAMINE HCL 100 MG TABLET (FP) PO SCH (21:08)
[2018-03-05] MEDS: MELATONIN 5 MG TABLETS PO PRN (21:08)
[2018-03-06] MEDS ORDERED: METHADONE HCL 5 MG TABLET ONE (02:53)
[2018-03-06] MEDS ORDERED: METHADONE HCL 40 MG DISPERSABLE TABLET ONE (02:54)
[2018-03-06] MEDS ORDERED: METHADONE HCL 10 MG TABLET ONE (02:54)
[2018-03-06] MEDS: METHADONE 80 MG, METHADONE 30 MG, METHADONE 5 MG PO SCH (06:42)
[2018-03-06] MEDS: GABAPENTIN 100 MG CAPSULE (FP) PO SCH ×3 (06:43→21:39)
[2018-03-06] MEDS: LACTULOSE 20 GM/30 ML UDC (FOR ORAL USE ONLY) PO SCH ×3 (06:43→21:39)
[2018-03-06] MEDS ORDERED: PT OWN MED DRAWER 7, Y5N ONE (09:30)
[2018-03-06] MEDS: amLODIPine BESYLATE 10 MG TABLET (FP) PO SCH (10:24)
[2018-03-06] MEDS: PRENATAL VITAMINS W/ FOLIC ACID TABLET (FP) PO SCH (10:24)
[2018-03-06] MEDS: NICOTINE 21 MG/24 HOURS TOPICAL PATCH TD SCH (10:24)
[2018-03-06] MEDS: RANOLAZINE E.R. 500 MG TABLET (FP) PO SCH ×2 (10:24→21:39)
--- NOTE | 2018-03-06 16:35 | PN ---
[facility] Progress Note Note: Psychiatry Attending's note :
[2018-03-06] MEDS: MELATONIN 5 MG TABLETS PO PRN (21:39)
[2018-03-06] MEDS: THIAMINE HCL 100 MG TABLET (FP) PO SCH (21:39)
[2018-03-06] MEDS: IBUPROFEN 400 MG TABLET (FP) PO PRN (21:40)
[2018-03-07] MEDS ORDERED: METHADONE HCL 10 MG TABLET ONE (06:02)
[2018-03-07] MEDS ORDERED: METHADONE HCL 5 MG TABLET ONE (06:02)
[2018-03-07] MEDS ORDERED: METHADONE HCL 40 MG DISPERSABLE TABLET ONE (06:02)
[2018-03-07] MEDS: LACTULOSE 20 GM/30 ML UDC (FOR ORAL USE ONLY) PO SCH ×3 (06:10→21:48)
[2018-03-07] MEDS: GABAPENTIN 100 MG CAPSULE (FP) PO SCH ×3 (06:10→21:48)
[2018-03-07] MEDS: METHADONE 80 MG, METHADONE 30 MG, METHADONE 5 MG PO SCH (06:11)
[2018-03-07] MEDS ORDERED: SERTRALINE HCL 25 MG TABLET (FP) PO SCH (10:00)
[2018-03-07] MEDS: PRENATAL VITAMINS W/ FOLIC ACID TABLET (FP) PO SCH (10:25)
[2018-03-07] MEDS: amLODIPine BESYLATE 10 MG TABLET (FP) PO SCH (10:25)
[2018-03-07] MEDS: NICOTINE 21 MG/24 HOURS TOPICAL PATCH TD SCH (10:25)
[2018-03-07] MEDS: RANOLAZINE E.R. 500 MG TABLET (FP) PO SCH ×2 (10:26→21:48)
[2018-03-07] MEDS: THIAMINE HCL 100 MG TABLET (FP) PO SCH (21:48)
[2018-03-07] MEDS: MELATONIN 5 MG TABLETS PO PRN (21:49)
[2018-03-08] MEDS ORDERED: METHADONE HCL 5 MG TABLET ONE (05:54)
[2018-03-08] MEDS ORDERED: METHADONE HCL 40 MG DISPERSABLE TABLET ONE (05:55)
[2018-03-08] MEDS ORDERED: METHADONE HCL 10 MG TABLET ONE (05:55)
[2018-03-08] MEDS: LACTULOSE 20 GM/30 ML UDC (FOR ORAL USE ONLY) PO SCH ×3 (06:26→21:16)
[2018-03-08] MEDS: GABAPENTIN 100 MG CAPSULE (FP) PO SCH ×3 (06:26→21:16)
[2018-03-08] MEDS: METHADONE 80 MG, METHADONE 30 MG, METHADONE 5 MG PO SCH (06:26)
[2018-03-08] MEDS: PRENATAL VITAMINS W/ FOLIC ACID TABLET (FP) PO SCH (10:49)
[2018-03-08] MEDS: RANOLAZINE E.R. 500 MG TABLET (FP) PO SCH ×2 (10:49→21:16)
[2018-03-08] MEDS: NICOTINE 21 MG/24 HOURS TOPICAL PATCH TD SCH (10:49)
[2018-03-08] MEDS: amLODIPine BESYLATE 10 MG TABLET (FP) PO SCH (10:49)
[2018-03-08] MEDS: THIAMINE HCL 100 MG TABLET (FP) PO SCH (21:17)
[2018-03-09] MEDS ORDERED: METHADONE HCL 10 MG TABLET ONE (05:50)
[2018-03-09] MEDS ORDERED: METHADONE HCL 5 MG TABLET ONE (05:50)
[2018-03-09] MEDS ORDERED: METHADONE HCL 40 MG DISPERSABLE TABLET ONE (05:51)
[2018-03-09] MEDS: METHADONE 80 MG, METHADONE 30 MG, METHADONE 5 MG PO SCH (06:53)
[2018-03-09] MEDS: LACTULOSE 20 GM/30 ML UDC (FOR ORAL USE ONLY) PO SCH ×3 (06:54→21:13)
[2018-03-09] MEDS: GABAPENTIN 100 MG CAPSULE (FP) PO SCH ×3 (06:54→21:14)
[2018-03-09] MEDS: NICOTINE 21 MG/24 HOURS TOPICAL PATCH TD SCH (10:06)
[2018-03-09] MEDS: PRENATAL VITAMINS W/ FOLIC ACID TABLET (FP) PO SCH (10:07)
[2018-03-09] MEDS: RANOLAZINE E.R. 500 MG TABLET (FP) PO SCH ×2 (10:07→21:14)
[2018-03-09] MEDS: amLODIPine BESYLATE 10 MG TABLET (FP) PO SCH (10:07)
[2018-03-09] MEDS: THIAMINE HCL 100 MG TABLET (FP) PO SCH (21:14)
[2018-03-09] MEDS: MELATONIN 5 MG TABLETS PO PRN (21:14)
[2018-03-09] MEDS: hydrOXYzine PAMOATE 50 MG CAPSULE (FP) PO PRN (21:14)
[2018-03-10] MEDS ORDERED: METHADONE HCL 5 MG TABLET ONE (03:29)
[2018-03-10] MEDS ORDERED: METHADONE HCL 40 MG DISPERSABLE TABLET ONE (03:30)
[2018-03-10] MEDS ORDERED: METHADONE HCL 10 MG TABLET ONE (03:30)
[2018-03-10] MEDS: METHADONE 80 MG, METHADONE 30 MG, METHADONE 5 MG PO SCH (07:01)
[2018-03-10] MEDS: GABAPENTIN 100 MG CAPSULE (FP) PO SCH (07:02)
[2018-03-10] MEDS: LACTULOSE 20 GM/30 ML UDC (FOR ORAL USE ONLY) PO SCH ×3 (07:03→21:39)
[2018-03-10] MEDS: PRENATAL VITAMINS W/ FOLIC ACID TABLET (FP) PO SCH (10:28)
[2018-03-10] MEDS: RANOLAZINE E.R. 500 MG TABLET (FP) PO SCH ×2 (10:28→21:39)
[2018-03-10] MEDS: NICOTINE 21 MG/24 HOURS TOPICAL PATCH TD SCH (10:28)
--- NOTE | 2018-03-10 10:31 | PN ---
[facility] Progress Note Note: PATIENT SEEN FOR REQUEST TO INCREASE GABAPENTIN DOSE. PATIENT REPORTS TAKING MEDICATION FOR NERVE PAIN. EXTERNAL PHARMACY HISTORY SHOWS LAST PRESCRIPTION FOR GABAPENTIN 600MG TID ORDERED 02/06/18. PATIENT C/O NUMBNESS, TINGLING TO HAND AND LOWER EXTREMITIES. PATIENT DENIES HEADACHE, DIZZINESS AND LETHARGY. Vital Signs Temp 98.3 F 03/10/18 07:25 Pulse 61 03/10/18 07:25 Resp 16 03/10/18 07:25 BP 133/77 03/10/18 07:25 Pulse Ox Intake & Output 03/09/18 03/09/18 03/10/18 11:59 23:59 11:59 Other: Voiding Method Toilet Toilet Toilet Laboratory Tests 03/04/18 03/05/18 03/05/18 23:10 10:41 10:41 WBC 6.5 RBC 4.07 Hgb 12.9 Hct 40.3 MCV 99.1 H MCH 31.6 D MCHC 31.9 L RDW 14.6 Plt Count 246 MPV 8.3 Sodium 140 Potassium 4.1 Chloride 106 Carbon Dioxide 27 Anion Gap 7 L BUN 14 Creatinine 0.7 Creat Clearance w eGFR > 60 Random Glucose 96 Calcium 8.2 L Total Bilirubin 0.2 AST 23 ALT 24 Alkaline Phosphatase 95 Total Protein 6.9 Albumin 3.3 L Urine Color Yellow Urine Appearance Clear Urine pH 5.0 D Ur Specific [place] 1.023 Urine Protein Negative Urine Glucose (UA) Negative Urine Ketones Negative Urine Blood 1+ H Urine Nitrite Negative Urine Bilirubin Negative Urine Urobilinogen Negative Ur Leukocyte Esterase 1+ H Urine WBC (Auto) 3 Urine RBC (Auto) 22 Ur Epithelial Cells Few Hyaline Casts 1 Urine Mucus Rare RPR Titer 03/05/18 10:41 WBC RBC Hgb Hct MCV MCH MCHC RDW Plt Count MPV Sodium Potassium Chloride Carbon Dioxide Anion Gap BUN Creatinine Creat Clearance w eGFR Random Glucose Calcium Total Bilirubin AST ALT Alkaline Phosphatase Total Protein Albumin Urine Color Urine Appearance Urine pH Ur Specific [place] Urine Protein Urine Glucose (UA) Urine Ketones Urine Blood Urine Nitrite Urine Bilirubin Urine Urobilinogen Ur Leukocyte Esterase Urine WBC (Auto) Urine RBC (Auto) Ur Epithelial Cells Hyaline Casts Urine Mucus RPR Titer Nonreactive PE; ALERT AND ORIENTED X 3 SKIN WARM AND DRY EXT FULL ROM, NO VISIBLE SWELLING OF LEGS AMB AD YIMI A/P: PERIPHERAL NEUROPATHY WILL INCREASE GABAPENTIN TO 300MG PO BID CONTINUE TO MONITOR CLINICALLY
[2018-03-10] MEDS: amLODIPine BESYLATE 10 MG TABLET (FP) PO SCH (10:34)
[2018-03-10] MEDS: hydrOXYzine PAMOATE 50 MG CAPSULE (FP) PO PRN (21:39)
[2018-03-10] MEDS: THIAMINE HCL 100 MG TABLET (FP) PO SCH (21:39)
[2018-03-10] MEDS: MELATONIN 5 MG TABLETS PO PRN (21:39)
[2018-03-10] MEDS: GABAPENTIN 300 MG CAPSULE (FP) PO SCH (21:39)
[2018-03-10] MEDS ORDERED: PT OWN MED DRAWER 7, Y5N ONE (22:38)
[2018-03-10] MEDS ORDERED: TUBERCULIN PPD 5 TU/0.1ML VIAL ID ONE (22:39)
[2018-03-11] MEDS ORDERED: METHADONE HCL 5 MG TABLET ONE (03:32)
[2018-03-11] MEDS ORDERED: METHADONE HCL 40 MG DISPERSABLE TABLET ONE (03:33)
[2018-03-11] MEDS ORDERED: METHADONE HCL 10 MG TABLET ONE (03:33)
[2018-03-11] MEDS: METHADONE 80 MG, METHADONE 30 MG, METHADONE 5 MG PO SCH (06:23)
[2018-03-11] MEDS: LACTULOSE 20 GM/30 ML UDC (FOR ORAL USE ONLY) PO SCH ×3 (06:24→23:25)
[2018-03-11] MEDS: GABAPENTIN 300 MG CAPSULE (FP) PO SCH ×2 (10:10→23:25)
[2018-03-11] MEDS: NICOTINE 21 MG/24 HOURS TOPICAL PATCH TD SCH (10:10)
[2018-03-11] MEDS: amLODIPine BESYLATE 10 MG TABLET (FP) PO SCH (10:10)
[2018-03-11] MEDS: RANOLAZINE E.R. 500 MG TABLET (FP) PO SCH ×2 (10:10→23:26)
[2018-03-11] MEDS: PRENATAL VITAMINS W/ FOLIC ACID TABLET (FP) PO SCH (10:11)
[2018-03-11] MEDS ORDERED: NICOTINE POLACRILEX 4 MG GUM BUC ONE (23:21)
[2018-03-11] MEDS: THIAMINE HCL 100 MG TABLET (FP) PO SCH (23:26)
[2018-03-12] MEDS ORDERED: METHADONE HCL 40 MG DISPERSABLE TABLET ONE (03:30)
[2018-03-12] MEDS ORDERED: METHADONE HCL 10 MG TABLET ONE (03:30)
[2018-03-12] MEDS ORDERED: METHADONE HCL 5 MG TABLET ONE (03:30)
[2018-03-12] MEDS: LACTULOSE 20 GM/30 ML UDC (FOR ORAL USE ONLY) PO SCH ×3 (06:33→21:44)
[2018-03-12] MEDS: METHADONE 80 MG, METHADONE 30 MG, METHADONE 5 MG PO SCH (06:33)
[2018-03-12] MEDS: RANOLAZINE E.R. 500 MG TABLET (FP) PO SCH ×2 (10:11→21:44)
[2018-03-12] MEDS: GABAPENTIN 300 MG CAPSULE (FP) PO SCH ×2 (10:12→21:44)
[2018-03-12] MEDS: PRENATAL VITAMINS W/ FOLIC ACID TABLET (FP) PO SCH (10:12)
[2018-03-12] MEDS: NICOTINE 21 MG/24 HOURS TOPICAL PATCH TD SCH (10:12)
[2018-03-12] MEDS: amLODIPine BESYLATE 10 MG TABLET (FP) PO SCH (10:12)
[2018-03-12] MEDS: THIAMINE HCL 100 MG TABLET (FP) PO SCH (21:43)
[2018-03-12] MEDS ORDERED: PT OWN MED DRAWER 7, Y5N ONE (22:35)
[2018-03-13] MEDS ORDERED: METHADONE HCL 5 MG TABLET ONE (06:03)
[2018-03-13] MEDS ORDERED: METHADONE HCL 40 MG DISPERSABLE TABLET ONE (06:04)
[2018-03-13] MEDS ORDERED: METHADONE HCL 10 MG TABLET ONE (06:04)
[2018-03-13] MEDS: LACTULOSE 20 GM/30 ML UDC (FOR ORAL USE ONLY) PO SCH ×3 (06:28→21:48)
[2018-03-13] MEDS: METHADONE 80 MG, METHADONE 30 MG, METHADONE 5 MG PO SCH (06:29)
[2018-03-13] MEDS: RANOLAZINE E.R. 500 MG TABLET (FP) PO SCH ×2 (10:20→21:48)
[2018-03-13] MEDS: NICOTINE 21 MG/24 HOURS TOPICAL PATCH TD SCH (10:21)
[2018-03-13] MEDS: GABAPENTIN 300 MG CAPSULE (FP) PO SCH ×2 (10:21→21:48)
[2018-03-13] MEDS: amLODIPine BESYLATE 10 MG TABLET (FP) PO SCH (10:21)
[2018-03-13] MEDS: PRENATAL VITAMINS W/ FOLIC ACID TABLET (FP) PO SCH (10:21)
[2018-03-13] MEDS ORDERED: AMMONIUM LACTATE 12% LOTION 225 GM BOTTLE TP PRN (13:45)
[2018-03-13] MEDS ORDERED: PT OWN MED DRAWER 7, Y5N ONE (21:17)
[2018-03-13] MEDS: hydrOXYzine PAMOATE 50 MG CAPSULE (FP) PO PRN (21:48)
[2018-03-13] MEDS: MELATONIN 5 MG TABLETS PO PRN (21:48)
[2018-03-13] MEDS: THIAMINE HCL 100 MG TABLET (FP) PO SCH (21:48)
[2018-03-14] MEDS ORDERED: METHADONE HCL 40 MG DISPERSABLE TABLET ONE (03:27)
[2018-03-14] MEDS ORDERED: METHADONE HCL 10 MG TABLET ONE (03:27)
[2018-03-14] MEDS ORDERED: METHADONE HCL 5 MG TABLET ONE (03:27)
[2018-03-14] MEDS: METHADONE 80 MG, METHADONE 30 MG, METHADONE 5 MG PO SCH (06:38)
[2018-03-14] MEDS: LACTULOSE 20 GM/30 ML UDC (FOR ORAL USE ONLY) PO SCH ×3 (06:39→21:26)
[2018-03-14] MEDS: PRENATAL VITAMINS W/ FOLIC ACID TABLET (FP) PO SCH (10:01)
[2018-03-14] MEDS: RANOLAZINE E.R. 500 MG TABLET (FP) PO SCH ×2 (10:01→21:25)
[2018-03-14] MEDS: GABAPENTIN 300 MG CAPSULE (FP) PO SCH ×2 (10:01→21:25)
[2018-03-14] MEDS: amLODIPine BESYLATE 10 MG TABLET (FP) PO SCH (10:01)
[2018-03-14] MEDS: NICOTINE 21 MG/24 HOURS TOPICAL PATCH TD SCH (10:01)
[2018-03-14] MEDS: THIAMINE HCL 100 MG TABLET (FP) PO SCH (21:25)
[2018-03-14] MEDS: MELATONIN 5 MG TABLETS PO PRN (21:25)
[2018-03-15] MEDS ORDERED: METHADONE HCL 40 MG DISPERSABLE TABLET ONE (02:57)
[2018-03-15] MEDS ORDERED: METHADONE HCL 10 MG TABLET ONE (02:57)
[2018-03-15] MEDS ORDERED: METHADONE HCL 5 MG TABLET ONE (02:57)
[2018-03-15] MEDS: METHADONE 80 MG, METHADONE 30 MG, METHADONE 5 MG PO SCH (06:22)
[2018-03-15] MEDS: LACTULOSE 20 GM/30 ML UDC (FOR ORAL USE ONLY) PO SCH ×3 (06:22→21:51)
[2018-03-15] MEDS: RANOLAZINE E.R. 500 MG TABLET (FP) PO SCH ×2 (09:51→21:51)
[2018-03-15] MEDS: GABAPENTIN 300 MG CAPSULE (FP) PO SCH ×2 (09:51→21:51)
[2018-03-15] MEDS: NICOTINE 21 MG/24 HOURS TOPICAL PATCH TD SCH (09:51)
[2018-03-15] MEDS: PRENATAL VITAMINS W/ FOLIC ACID TABLET (FP) PO SCH (09:51)
[2018-03-15] MEDS: amLODIPine BESYLATE 10 MG TABLET (FP) PO SCH (09:51)
[2018-03-15] MEDS: IBUPROFEN 400 MG TABLET (FP) PO PRN (13:56)
[2018-03-15] MEDS: hydrOXYzine PAMOATE 50 MG CAPSULE (FP) PO PRN (21:51)
[2018-03-15] MEDS: THIAMINE HCL 100 MG TABLET (FP) PO SCH (21:51)
[2018-03-15] MEDS: MELATONIN 5 MG TABLETS PO PRN (21:51)
[2018-03-15] MEDS ORDERED: PT OWN MED DRAWER 7, Y5N ONE (23:42)
[2018-03-16] MEDS ORDERED: METHADONE HCL 40 MG DISPERSABLE TABLET ONE (03:15)
[2018-03-16] MEDS ORDERED: METHADONE HCL 10 MG TABLET ONE (03:15)
[2018-03-16] MEDS ORDERED: METHADONE HCL 5 MG TABLET ONE (03:15)
[2018-03-16] MEDS: METHADONE 80 MG, METHADONE 30 MG, METHADONE 5 MG PO SCH (06:25)
[2018-03-16] MEDS: LACTULOSE 20 GM/30 ML UDC (FOR ORAL USE ONLY) PO SCH ×3 (06:26→21:44)
[2018-03-16] MEDS ORDERED: PT OWN MED DRAWER 7, Y5N ONE ×2 (09:00→21:51)
[2018-03-16] MEDS: RANOLAZINE E.R. 500 MG TABLET (FP) PO SCH ×2 (10:05→21:44)
[2018-03-16] MEDS: PRENATAL VITAMINS W/ FOLIC ACID TABLET (FP) PO SCH (10:05)
[2018-03-16] MEDS: NICOTINE 21 MG/24 HOURS TOPICAL PATCH TD SCH (10:05)
[2018-03-16] MEDS: GABAPENTIN 300 MG CAPSULE (FP) PO SCH ×2 (10:05→21:44)
[2018-03-16] MEDS: amLODIPine BESYLATE 10 MG TABLET (FP) PO SCH (10:05)
[2018-03-16] MEDS: THIAMINE HCL 100 MG TABLET (FP) PO SCH (21:43)
[2018-03-17] MEDS ORDERED: METHADONE HCL 5 MG TABLET ONE (06:03)
[2018-03-17] MEDS ORDERED: METHADONE HCL 10 MG TABLET ONE (06:03)
[2018-03-17] MEDS ORDERED: METHADONE HCL 40 MG DISPERSABLE TABLET ONE (06:04)
[2018-03-17] MEDS: METHADONE 80 MG, METHADONE 30 MG, METHADONE 5 MG PO SCH (06:58)
[2018-03-17] MEDS: LACTULOSE 20 GM/30 ML UDC (FOR ORAL USE ONLY) PO SCH ×3 (06:58→21:33)
[2018-03-17] MEDS: NICOTINE 21 MG/24 HOURS TOPICAL PATCH TD SCH (10:37)
[2018-03-17] MEDS: PRENATAL VITAMINS W/ FOLIC ACID TABLET (FP) PO SCH (10:38)
[2018-03-17] MEDS: RANOLAZINE E.R. 500 MG TABLET (FP) PO SCH ×2 (10:38→21:33)
[2018-03-17] MEDS: GABAPENTIN 300 MG CAPSULE (FP) PO SCH ×2 (10:38→21:33)
[2018-03-17] MEDS: amLODIPine BESYLATE 10 MG TABLET (FP) PO SCH (10:38)
[2018-03-17] MEDS ORDERED: PT OWN MED DRAWER 7, Y5N ONE (21:07)
[2018-03-17] MEDS: THIAMINE HCL 100 MG TABLET (FP) PO SCH (21:33)
[2018-03-17] MEDS: MELATONIN 5 MG TABLETS PO PRN (21:34)
[2018-03-18] MEDS ORDERED: METHADONE HCL 10 MG TABLET ONE (03:22)
[2018-03-18] MEDS ORDERED: METHADONE HCL 5 MG TABLET ONE (03:22)
[2018-03-18] MEDS ORDERED: METHADONE HCL 40 MG DISPERSABLE TABLET ONE (03:23)
[2018-03-18] MEDS: LACTULOSE 20 GM/30 ML UDC (FOR ORAL USE ONLY) PO SCH ×3 (06:48→21:24)
[2018-03-18] MEDS: METHADONE 80 MG, METHADONE 30 MG, METHADONE 5 MG PO SCH (06:49)
[2018-03-18] MEDS: amLODIPine BESYLATE 10 MG TABLET (FP) PO SCH (10:07)
[2018-03-18] MEDS: PRENATAL VITAMINS W/ FOLIC ACID TABLET (FP) PO SCH (10:07)
[2018-03-18] MEDS: RANOLAZINE E.R. 500 MG TABLET (FP) PO SCH ×2 (10:07→21:23)
[2018-03-18] MEDS: NICOTINE 21 MG/24 HOURS TOPICAL PATCH TD SCH (10:07)
[2018-03-18] MEDS: GABAPENTIN 300 MG CAPSULE (FP) PO SCH ×2 (10:07→21:23)
--- NOTE | 2018-03-18 16:33 | PN ---
Psychiatric Progress Note Vital Signs: Vital Signs Period Temp Pulse Resp BP Sys/Caicedo Pulse Ox Last 24 Hr 97.7 F 64-74 -18 114-118/67-73 Date of Session: 03/18/18 Chief Complaint:: Discharge visit HPI: Alcohol,Coacian and Opioid dependnece. ROS: Neuropathy. Current Medications: Active Medications Generic Name Dose Route Start Last Admin Trade Name Freq PRN Reason Stop Dose Admin Al Hydroxide/Mg Hydroxide 30 ml 03/04/18 20:51 Mylanta Oral Suspension - PO Q6H PRN DYSPEPSIA Amlodipine Besylate 10 mg 03/05/18 11:30 03/18/18 10:07 Norvasc - PO 10 mg DAILY TORI Administration Eucalyptus/Menthol/Phenol/Sorbitol 1 each 03/04/18 20:51 Cepastat Lozenge - MM Q4H PRN SORE THROAT Gabapentin 300 mg 03/10/18 22:00 03/18/18 10:07 Neurontin - PO 300 mg BID TORI Administration Guaifenesin 10 ml 03/04/18 20:51 Robitussin Dm - PO Q6H PRN COUGH Hydroxyzine Pamoate 50 mg 03/04/18 20:51 03/15/18 21:51 Vistaril - PO 50 mg Q4H PRN Administration AGITATION Ibuprofen 400 mg 03/04/18 20:51 03/15/18 13:56 Motrin - PO 400 mg Q6H PRN Administration Pain level 4-6 Lactic Acid 1 applic 03/13/18 13:45 03/16/18 10:04 Lac-Hydrin 12 TP 1 applic DAILY PRN Administration DRY SKIN Lactulose 20 gm 03/04/18 22:00 03/18/18 13:20 Cephulac (Oral Use) PO 20 gm TID TORI Administration Loperamide HCl 4 mg 03/04/18 20:51 Imodium - PO Q6H PRN DIARRHEA Magnesium Citrate 300 ml 03/04/18 20:51 Citroma - PO Q48H PRN CONSTIPATION Magnesium Hydroxide 30 ml 03/04/18 20:51 Milk Of Magnesia - PO DAILY PRN CONSTIPATION Melatonin 5 mg 03/04/18 22:00 03/17/18 21:34 Melatonin PO 5 mg HS PRN Administration INSOMNIA Methadone HCl 80 mg/ Methadone 115 mg 03/19/18 06:00 HCl 30 mg/ Methadone HCl 5 mg PO DAILY@0600 TORI Nicotine 21 mg 03/05/18 10:00 03/18/18 10:07 Nicoderm Patch - TD 21 mg DAILY TORI Administration Nicotine Polacrilex 2 mg 03/04/18 20:51 Nicorette Gum - BC Q2H PRN NICOTINE REPLACEMENT RX Multivit/Folic Acid/Iron 1 tab 03/05/18 10:00 03/18/18 10:07 Vitamins (Sjr) - PO 1 tab DAILY TORI Administration Pseudoephedrine/Triprolidine 1 combo 03/04/18 20:51 Actifed - PO TID PRN NASAL CONGESTION Ranolazine 500 mg 03/05/18 10:00 03/18/18 10:07 Ranexa - PO 500 mg BID TORI Administration Thiamine HCl 100 mg 03/04/18 22:00 03/17/18 21:33 Vitamin B1 - PO 100 mg HS TORI Administration Current Side Effect: No Lab tests ordered: No Lab tests reviewed: Yes Provider note:: Patient will complete this program tomorrow 03/19/18.She has met her treatment goals and gina continue to address her issues on outpatient basis. Patient identifies areas of difficulties and behaviors which contribute to relapse.Scripts for 30 days provided. Supportive therapy provided. Patient is stable for discharge tomorrow. Total face to face time:: 30 Mental Status Exam - Mental Status Exam Alert and Oriented to: Time, Place, Person Cognitive Function: Grossly Intact Patient Appearance: Well Groomed Mood: Euthymic Affect: Appropriate, Mood Congruent Patient Behavior: Appropriate, Cooperative Speech Pattern: Clear Voice Loudness: Normal Thought Process: Goal Oriented Thought Disorder: Not Present Hallucinations: Denies Suicidal Ideation: Denies Homicidal Ideation: Denies Insight/Judgement: Fair Sleep: Fair Appetite: Good Muscle strength/Tone: Normal Gait/Station: Normal Psychiatric Treatment Plan - Problem List (1) Peripheral neuropathy Qualifiers: Peripheral neuropathy type: polyneuropathy, unspecified Qualified Code(s): G62.9 - Polyneuropathy, unspecified
[2018-03-18] MEDS: hydrOXYzine PAMOATE 50 MG CAPSULE (FP) PO PRN (21:23)
[2018-03-18] MEDS: THIAMINE HCL 100 MG TABLET (FP) PO SCH (21:23)
[2018-03-18] MEDS: MELATONIN 5 MG TABLETS PO PRN (21:24)
[2018-03-19] MEDS ORDERED: METHADONE 80 MG, METHADONE 30 MG, METHADONE 5 MG PO SCH ×2 (06:00)
[2018-03-19] MEDS ORDERED: METHADONE HCL 5 MG TABLET ONE (06:29)
[2018-03-19] MEDS ORDERED: METHADONE HCL 10 MG TABLET ONE (06:29)
[2018-03-19] MEDS ORDERED: METHADONE HCL 40 MG DISPERSABLE TABLET ONE (06:30)
[2018-03-19] MEDS: LACTULOSE 20 GM/30 ML UDC (FOR ORAL USE ONLY) PO SCH (06:48)
[2018-03-19 07:24] VITALS: BP 121/84; PULSE 67; TEMP 98.7
[2018-03-19] MEDS: amLODIPine BESYLATE 10 MG TABLET (FP) PO SCH (09:15)
[2018-03-19] MEDS: GABAPENTIN 300 MG CAPSULE (FP) PO SCH (09:15)
[2018-03-19] MEDS: RANOLAZINE E.R. 500 MG TABLET (FP) PO SCH (09:15)
[2018-03-19] MEDS: NICOTINE 21 MG/24 HOURS TOPICAL PATCH TD SCH (09:15)
[2018-03-19] MEDS: PRENATAL VITAMINS W/ FOLIC ACID TABLET (FP) PO SCH (09:15)
== END 2018-03-19 09:23 | disposition home or self-care (01) | DRG 772 ==
LOC: YASAS 16:05 → Y3E 19:15
PROVIDERS: ADMIT Psychiatry & Neurology Psychiatry; ATTEND Psychiatry & Neurology Psychiatry
PROC: HZ42ZZZ Group Counseling for Substance Abuse Treatment, Cognitive-Behavioral (ICD-10-PCS; principal; 2018-03-04)
DX: F14.20 Cocaine dependence, uncomplicated (principal); F11.20 Opioid dependence, uncomplicated; F17.210 Nicotine dependence, cigarettes, uncomplicated; F33.9 Major depressive disorder, recurrent, unspecified; F19.282 Other psychoactive substance dependence with psychoactive substance-induced sleep disorder; I10 Essential (primary) hypertension; K21.9 Gastro-esophageal reflux disease without esophagitis; I25.119 Atherosclerotic heart disease of native coronary artery with unspecified angina pectoris; G51.9 Disorder of facial nerve, unspecified; G62.9 Polyneuropathy, unspecified; K59.00 Constipation, unspecified; Z87.42 Personal history of other diseases of the female genital tract; Z88.2 Allergy status to sulfonamides; Z91.5 Personal history of self-harm
CPT/HCPCS: 36415; 80053; 81003; 81015; 85027; 86593; 93005; 93010

== ENCOUNTER 2018-05-06 13:54 | Inpatient (IN) | payer OTHER ==
[2018-05-06 19:03] VITALS: BMI 25.7
--- NOTE | 2018-05-06 21:25 | HP ---
CIWA Score Nausea/Vomitin-Mild Nausea/No Vomiting Muscle Tremors: 4-Moderate,w/Arms Extend Anxiety: 3 Agitation: 3 Paroxysmal Sweats: 3 Orientation: 1-Uncertain about Date Tacttile Disturbances: 0-None Auditory Disturbances: 0-None Visual Disturbances: 0-None Headache: 2-Mild CIWA-Ar Total Score: 17 - Admission Criteria [facility]ASAS Guidelines: Admission for Medically Managed Detox: Requires at least one of the followin. CIWA greater than 12 2. Seizures within the past 24 hours 3. Delirium tremens within the past 24 hours 4. Hallucinations within the past 24 hours 5. Acute intervention needed for co occurring medical disorder 6. Acute intervention needed for co occurring psychiatric disorder 7. Severe withdrawal that cannot be handled at a lower level of care (continued vomiting, continued diarrhea, abnormal vital signs) requiring intravenous medication and/or fluids 8. Admission ROS [facility] Chief Complaint: Alcohol withdrawal symptoms Allergies/Adverse Reactions: Allergies Allergy/AdvReac Type Severity Reaction Status Date / Time Sulfa (Sulfonamide Allergy Severe Swelling Verified 05/06/18 23:40 Antibiotics) History of Present Illness: 63 years old female with a long history of heroin and alcohol dependence is seeking admission to detox. Patient has been in previous detox and reports 6 months of sobriety while in senior living. She reports medical history of Angina, hypertension, hyperlipidemia, GERD, Peripheral neuropathy, anxiety and depression. She reports suicide attempt in 1994 and 2017. She denies suicidal ideation at this time. Patient is on Methadone 135mg tablet oral at [facility] in [place], [place]. Dose is yet to be confirmed by the nurse. Exam Limitations: No Limitations - Ebola screening Have you traveled outside of the country in the last 21 days: No Have you had contact with anyone from an Ebola affected area: No Have you been sick,other than usual withdrawal symptoms: No Do you have a fever: No - Review of Systems Constitutional: Chills, Loss of Appetite, Night Sweats, Changes in sleep EENT: reports: Nose Congestion Respiratory: reports: No Symptoms reported Cardiac: reports: No Symptoms Reported GI: reports: Diarrhea, Poor Appetite, Poor Fluid Intake, Vomiting, Abdominal cramping : reports: No Symptoms Reported Musculoskeletal: reports: Back Pain Integumentary: reports: Dryness, Flushing Neuro: reports: Headache, Tremors Endocrine: reports: No Symptoms Reported Hematology: reports: No Symptoms Reported Psychiatric: reports: Anxious, Depressed Other Systems: Reviewed and Negative Patient History - Patient Medical History Hx Anemia: No Hx Asthma: No Hx Chronic Obstructive Pulmonary Disease (COPD): No Hx Cancer: No Hx Cardiac Disorders: Yes (Angina- Ranexa) Hx Congestive Heart Failure: No Hx Hypertension: Yes (Amlodipine) Hx Hypercholesterolemia: Yes (Not on medication) Hx Pacemaker: No HX Cerebrovascular Accident: No Hx Seizures: No Hx Dementia: No Hx Diabetes: No Hx Gastrointestinal Disorders: No Hx Liver Disease: No Hx Genitourinary Disorders: No Hx Sexually Transmitted Disorders: No Hx Renal Disease (ESRD): No Hx Thyroid Disease: No Hx Human Immunodeficiency Virus (HIV): No Hx Hepatitis C: No Hx Depression: Yes (Patient does not remember name of medication) Hx Suicide Attempt: Yes (Attempt in 1994& 2018. Denies suicidal ideation at this time) Hx Bipolar Disorder: No Hx Schizophrenia: No Other Medical History: Anxiety - Not on medication - Patient Surgical History Past Surgical History: Yes Hx Neurologic Surgery: No Hx Cataract Extraction: No Hx Cardiac Surgery: No Hx Lung Surgery: No Hx Breast Surgery: No Hx Breast Biopsy: No Hx Abdominal Surgery: Yes (splenectomy) Hx Appendectomy: No Hx Cholecystectomy: No Hx Genitourinary Surgery: No Hx Section: No Hx Orthopedic Surgery: No Anesthesia Reaction: No - PPD History Previous Implant?: Yes Documented Results: Negative w/proof Implanted On Prior [facility] Admission?: Yes Date: 03/22/17 Results: 0mm PPD to be Administered?: Yes - Reproductive History Patient is a Female of Child Bearing Age (11 -55 yrs old): Yes Last Menstrual Period: 02/29/12 Patient : No - Smoking Cessation Smoking history: Current every day smoker Have you smoked in the past 12 months: Yes Aproximately how many cigarettes per day: 20 Cigars Per Day: 0 Hx Chewing Tobacco Use: No Initiated information on smoking cessation: Yes 'Breaking Loose' booklet given: 05/06/18 - Substance & Tx. History Hx Alcohol Use: Yes Hx Substance Use: Yes Substance Use Type: Alcohol, Cocaine, Marijuana, Opiates Hx Substance Use Treatment: Yes ([facility]) - Substances Abused Alcohol Route: Oral Frequency: Daily Amount used: VODKA -2 Liters Age of first use: 17 Date of Last Use: 05/06/18 Heroin Route: Inhalation Frequency: Daily Amount used: 2 bags Age of first use: 32 Date of Last Use: 05/06/18 Cocaine Route: Smoking Frequency: 3-6 times per week Amount used: $50 Age of first use: 40 Date of Last Use: 05/01/18 Marijuana/Hashish Route: Smoking Frequency: 3-6 times per week Amount used: $20 Age of first use: 17 Date of Last Use: 05/03/18 Family Disease History - Family Disease History Family History: Denies Admission Physical Exam [facility] - Vital Signs Vital Signs: Vital Signs - 24 hr 05/06/18 19:00 Temperature 96.7 F L Pulse Rate 61 Respiratory 18 Rate Blood Pressure 140/77 - Physical General Appearance: Yes: Moderate Distress, Tremorous, Irritable, Anxious HEENTM: Yes: EOMI, Normal ENT Inspection, Normocephalic, Normal Voice, SABRINA Respiratory: Yes: Lungs Clear, Normal Breath Sounds, No Respiratory Distress Neck: Yes: Supple Breast: Yes: Breast Exam Deferred Cardiology: Yes: Regular Rhythm, Regular Rate Abdominal: Yes: Normal Bowel Sounds, Soft Genitourinary: Yes: Within Normal Limits Back: Yes: Normal Inspection Musculoskeletal: Yes: Within Normal Limits Extremities: Yes: Within Normal Limits Neurological: Yes: Alert, Normal Mood/Affect Integumentary: Yes: Warm Lymphatic: Yes: Within Normal Limits - Diagnostic (1) Hyperlipidemia Current Visit: No Status: Chronic Qualifiers: Hyperlipidemia type: unspecified Qualified Code(s): E78.5 - Hyperlipidemia , unspecified (2) HTN (hypertension) Current Visit: No Status: Chronic (3) Peripheral neuropathy Current Visit: No Status: Chronic Qualifiers: Peripheral neuropathy type: polyneuropathy, unspecified Qualified Code(s): G62.9 - Polyneuropathy, unspecified (4) Angina concurrent with and due to arteriosclerosis of coronary artery Current Visit: No Status: Chronic (5) CAD (coronary artery disease) Current Visit: No Status: Chronic (6) Cocaine dependence Current Visit: No Status: Chronic Qualifiers: (7) Depression Current Visit: No Status: Chronic (8) GERD (gastroesophageal reflux disease) Current Visit: No Status: Chronic (9) Nicotine dependence Current Visit: No Status: Chronic Qualifiers: Nicotine product type: cigarettes Substance use status: uncomplicated Qualified Code(s): F17.210 - Nicotine dependence, cigarettes, uncomplicated (10) Opioid dependence on agonist therapy Current Visit: No Status: Chronic Cleared for Admission [facility] - Detox or Rehab [facility] Level of Care: Medically Managed Detox Regimen/Protocol: Librium [facility] Breath Alcohol Content Breath Alcohol Content: 0 Urine Pregancy Test - Result Urine Test Results: Negative- NO Line Present Urine Drug Screen - Results Drug Screen Negative: No Urine Drug Screen Results: THC-Marijuana, PIPER-Cocaine, OPI-Opiates, MTD- Methadone Inpatient Rehab Admission - Rehab Decision to Admit Inpatient rehab admission?: No - Initial Determination Are CD services needed?: No Free of communicable disease: Yes Not in need of hospitalization: Yes
[2018-05-06] MEDS ORDERED: ACETAMINOPHEN 325 MG TABLET (FP) PO PRN ×2 (21:45→21:46)
[2018-05-06] MEDS ORDERED: P-EPHED 60MG/TRIPROLIDI 2.5MG TABLET PO PRN ×2 (21:45→21:46)
[2018-05-06] MEDS ORDERED: MENTHOL/PHENOL 1 EACH UD MM PRN ×2 (21:45→21:46)
[2018-05-06] MEDS ORDERED: MAG HYDROX/AL HYDROX/SIMETH 30 ML UNIT-DOSE CUP PO PRN ×2 (21:45→21:46)
[2018-05-06] MEDS ORDERED: MAGNESIUM CITRATE 300 ML BOTTLE PO PRN ×2 (21:45→21:46)
[2018-05-06] MEDS ORDERED: LOPERAMIDE HCL 2 MG CAPSULE PO PRN ×2 (21:45→21:46)
[2018-05-06] MEDS ORDERED: IBUPROFEN 400 MG TABLET (FP) PO PRN ×2 (21:45→21:46)
[2018-05-06] MEDS ORDERED: MAGNESIUM HYDROX 2400MG/30ML ORAL SUSPENSION 30 ML CUP PO PRN ×2 (21:45→21:46)
[2018-05-06] MEDS ORDERED: chlordiazePOXIDE HCL 25 MG CAPSULE PO PRN ×2 (21:45→21:46)
[2018-05-06] MEDS ORDERED: NICOTINE POLACRILEX 2 MG GUM BC PRN (21:46)
[2018-05-06] MEDS ORDERED: guaiFENesin/D-METHORPHAN HB 10 ML UNIT-DOSE CUPS PO PRN (21:46)
[2018-05-06] MEDS ORDERED: ALBUTEROL SO4 8 GM HFA INHALER IH PRN (21:49)
[2018-05-06] MEDS ORDERED: THIAMINE HCL 100 MG TABLET (FP) PO SCH (22:00)
[2018-05-06] MEDS ORDERED: MELATONIN 5 MG TABLETS PO PRN ×2 (22:00)
[2018-05-06] MEDS ORDERED: chlordiazePOXIDE HCL 25 MG CAPSULE PO SCH (23:00)
[2018-05-07] MEDS: RANOLAZINE E.R. 500 MG TABLET (FP) PO SCH ×3 (02:03→22:12)
[2018-05-07] MEDS: THIAMINE HCL 100 MG TABLET (FP) PO SCH ×2 (02:03→22:11)
[2018-05-07] MEDS: chlordiazePOXIDE HCL 25 MG CAPSULE PO SCH ×5 (02:04→22:12)
[2018-05-07] MEDS ORDERED: METHADONE HCL 10 MG TABLET PO ONE (08:30)
[2018-05-07] MEDS ORDERED: METHADONE 120 MG, METHADONE 10 MG, METHADONE 5 MG PO ONE (08:45)
--- NOTE | 2018-05-07 09:28 | CONSULT ---
[facility] Psychiatric Consult - Data Date of interview: 05/07/18 Admission source: [facility] Identifying data: This is a 63 years old female, mother of two, homeless , unemployed, on SSI support, with a multiple medical issues history, with history of Alcohol, Heroin, Cannabis, Cocaine and Nicotine dependence, is here reporting withdrawal symptoms and seeking fopr detox. Substance Abuse History: Smoking history: Current every day smoker. Have you smoked in the past 12 months: Yes. Aproximately how many cigarettes per day: 20. Cigars Per Day: 0. Hx Chewing Tobacco Use: No. Initiated information on smoking cessation: Yes. 'Breaking Loose' booklet given: 05/06/18. - Substance & Tx. History. Hx Alcohol Use: Yes. Hx Substance Use: Yes. Substance Use Type : Alcohol, Cocaine, Marijuana, Opiates. Hx Substance Use Treatment: Yes ([facility]) . - Substances Abused. Alcohol. Route: Oral. Frequency: Daily. Amount used: VODKA -2 Liters. Age of first use: 17. Date of Last Use: 05/06/18. Heroin. Route: Inhalation. Frequency: Daily. Amount used: 2 bags. Age of first use: 32. Date of Last Use: 05/06/18. Cocaine. Route: Smoking. Frequency: 3-6 times per week. Amount used: $50. Age of first use: 40. Date of Last Use: 05/01/18. Marijuana/Hashish. Route: Smoking. Frequency: 3-6 times per week. Amount used: $20. Age of first use: 17. Date of Last Use: 06/16 Medical History: CAD, GERD, Angina history, Hyperlipidemia history, Periferal neuropathy, Azotemia and high Ammonia pevel history, Chest pain history, Syncope history, Weight loss history Psychiatric History: Patient reports to carry depression and anxiety, as per chart MDD with suicidal attempt history by OD as per patient more then 10 years ago. Patient reports no suicidal, homicidal history since then, reports psychiatric hospitalization on 2018 for safety at [facility]. Reports taking prior to admission: Remeron 45mg po qhs. Gabapentin 300mg po bid Physical/Sexual Abuse/Trauma History: Denies Additional Comment: Remeron 45mg po qhs. Gabapentin 300mg po bid Mental Status Exam - Mental Status Exam Alert and Oriented to: Person Cognitive Function: Fair Patient Appearance: Unkempt Mood: Sad, Apprehensive Affect: Mood Congruent Patient Behavior: Cooperative Speech Pattern: Delayed Voice Loudness: Mildly Soft/Quiet Thought Process: Circumstantial, Goal Oriented Thought Disorder: Being Controlled Hallucinations: Denies Suicidal Ideation: Denies Homicidal Ideation: Denies Insight/Judgement: Fair Sleep: Difficulty falling asleep Appetite: Weight gain Muscle strength/Tone: Mild Hypotonicity Gait/Station: Shuffling Additional Comments: Remeron 45mg po qhs. Gabapentin 300mg po bid Psychiatric Findings - Problem List ([place] 1, 2,3) (1) Cannabis dependence Current Visit: Yes Status: Acute (2) Azotemia Current Visit: No Status: Acute (3) Chest pain Current Visit: No Status: Acute (4) Increased ammonia level Current Visit: No Status: Acute (5) Substance-induced sleep disorder Current Visit: No Status: Acute (6) Syncope Current Visit: No Status: Acute (7) Weight loss Current Visit: No Status: Acute (8) Alcohol dependence Current Visit: No Status: Chronic (9) Angina concurrent with and due to arteriosclerosis of coronary artery Current Visit: No Status: Chronic (10) CAD (coronary artery disease) Current Visit: No Status: Chronic (11) Cocaine dependence Current Visit: No Status: Chronic Qualifiers: (12) GERD (gastroesophageal reflux disease) Current Visit: No Status: Chronic (13) HTN (hypertension) Current Visit: No Status: Chronic (14) Hyperlipidemia Current Visit: No Status: Chronic Qualifiers: Hyperlipidemia type: unspecified Qualified Code(s): E78.5 - Hyperlipidemia , unspecified (15) MDD (major depressive disorder) Current Visit: No Status: Chronic (16) Nicotine dependence Current Visit: No Status: Chronic Qualifiers: Nicotine product type: cigarettes Substance use status: uncomplicated Qualified Code(s): F17.210 - Nicotine dependence, cigarettes, uncomplicated (17) Opioid dependence on agonist therapy Current Visit: No Status: Chronic (18) Traumatic neuropathy of left facial nerve Current Visit: No Status: Chronic - Initial Treatment Plan Initial Treatment Plan: Remeron 45mg po qhs. Gabapentin 300mg po bid
[2018-05-07] MEDS ORDERED: METHADONE HCL 5 MG TABLET ONE (09:31)
[2018-05-07] MEDS ORDERED: METHADONE HCL 40 MG DISPERSABLE TABLET ONE (09:32)
[2018-05-07] MEDS ORDERED: METHADONE HCL 10 MG TABLET ONE (09:32)
[2018-05-07] MEDS ORDERED: PRENATAL VITAMINS W/ FOLIC ACID TABLET (FP) PO SCH (10:00)
[2018-05-07] MEDS: amLODIPine BESYLATE 5 MG TABLET (FP) PO SCH (10:12)
[2018-05-07] MEDS: ASPIRIN COATED 81 MG TABLET.EC PO SCH (10:12)
[2018-05-07] MEDS: PRENATAL VITAMINS W/ FOLIC ACID TABLET (FP) PO SCH (10:12)
[2018-05-07] MEDS: GABAPENTIN 300 MG CAPSULE (FP) PO SCH ×2 (10:14→22:12)
[2018-05-07] MEDS: NICOTINE 14 MG/24 HOURS TOPICAL PATCH TD SCH (10:15)
[2018-05-07 10:24] LABS: HEMATOCRIT 38.4 % (32.4-45.2); HEMOGLOBIN 13.1 GM/dL (10.7-15.3); MCH 34.3 pg (25.7-33.7); MCHC 34.1 g/dl (32.0-36.0); MEAN CELL VOLUME 100.4 fl (80-96); MEAN PLT VOLUME 8.2 fl (7.5-11.1); PLATELET COUNT 231 K/MM3 (134-434); RBC 3.82 M/mm3 (3.60-5.2); RDW 14.4 % (11.6-15.6); WHITE BLOOD COUNT 8.6 K/mm3 (4.0-10.0)
[2018-05-07 11:00] LABS: ALBUMIN 3.5 g/dl (3.4-5.0); ALK PHOS 90 U/L (45-117); ANION GAP 8 MMOL/L (8-16); BILIRUBIN,TOTAL 0.3 mg/dL (0.2-1); BLOOD UREA NITROGEN 11 mg/dL (7-18); CALCIUM 8.9 mg/dL (8.5-10.1); CHLORIDE 106 mmol/L (98-107); CO2 27 mmol/L (21-32); CREATININE 0.8 mg/dL (0.55-1.3); GLUCOSE,RANDOM 114 mg/dL (74-106); POTASSIUM 3.9 mmol/L (3.5-5.1); SGOT/AST 13 U/L (15-37); SGPT/ALT 19 U/L (13-61); SODIUM 140 mmol/L (136-145)
--- NOTE | 2018-05-07 11:53 | PN ---
[facility] CIWA - CIWA Score Nausea/Vomitin-No Nausea/No Vomiting Muscle Tremors: 3 Anxiety: 3 Agitation: 3 Paroxysmal Sweats: 3 Orientation: 0-Oriented Tacttile Disturbances: 0-None Auditory Disturbances: 0-None Visual Disturbances: 0-None Headache: 0-None Present CIWA-Ar Total Score: 12 S Progress Note (SOAP) Subjective: nausea sweats shakes interrupted sleep Objective: 05/07/18 11:52 Vital Signs Temperature 97.7 F 05/07/18 10:24 Pulse Rate 66 05/07/18 10:24 Respiratory Rate 18 05/07/18 10:24 Blood Pressure 134/78 05/07/18 10:24 O2 Sat by Pulse Oximetry (%) Laboratory Tests 05/07/18 05/07/18 07:00 07:00 WBC 8.6 RBC 3.82 Hgb 13.1 Hct 38.4 MCV 100.4 H MCH 34.3 H MCHC 34.1 RDW 14.4 Plt Count 231 MPV 8.2 Sodium 140 Potassium 3.9 Chloride 106 Carbon Dioxide 27 Anion Gap 8 BUN 11 Creatinine 0.8 Creat Clearance w eGFR > 60 Random Glucose 114 H Calcium 8.9 Total Bilirubin 0.3 AST 13 L ALT 19 Alkaline Phosphatase 90 Total Protein 7.0 Albumin 3.5 aaox3 ambulating no acute distress Assessment: 05/07/18 11:52 withdrawal sx Plan: continue detox increase fluids
[2018-05-07] MEDS: guaiFENesin/D-METHORPHAN HB 10 ML UNIT-DOSE CUPS PO PRN (14:02)
--- NOTE | 2018-05-07 16:47 | EKG ---
Test Reason : Blood Pressure : / mmHG Vent. Rate : 052 BPM Atrial Rate : 052 BPM P-R Int : 150 ms QRS Dur : 086 ms QT Int : 452 ms P-R-T Axes : 060 023 039 degrees QTc Int : 420 ms SINUS BRADYCARDIA MINIMAL VOLTAGE CRITERIA FOR LVH, MAY BE NORMAL VARIANT BORDERLINE ECG WHEN COMPARED WITH ECG OF 07-MAY-2018 01:35, NO SIGNIFICANT CHANGE WAS FOUND Confirmed by ANDREA MCKENNA, ALVAREZ ([id number]) on 05/07/2018 4:47:15 PM Referred By: Confirmed By:ALVAREZ MENDEZ MD
--- NOTE | 2018-05-07 16:48 | EKG ---
Test Reason : Blood Pressure : / mmHG Vent. Rate : 051 BPM Atrial Rate : 051 BPM P-R Int : 148 ms QRS Dur : 084 ms QT Int : 378 ms P-R-T Axes : 040 -05 026 degrees QTc Int : 348 ms SINUS BRADYCARDIA MINIMAL VOLTAGE CRITERIA FOR LVH, MAY BE NORMAL VARIANT NONSPECIFIC T WAVE ABNORMALITY ABNORMAL ECG WHEN COMPARED WITH ECG OF 07-MAY-2018 01:35, NONSPECIFIC T WAVE ABNORMALITY NOW EVIDENT IN LATERAL LEADS QT HAS SHORTENED Confirmed by ALVAREZ MENDEZ MD ([id number]) on 05/07/2018 4:47:50 PM Referred By: Confirmed By:ALVAREZ MENDEZ MD
[2018-05-07] MEDS: MIRTAZAPINE 15 MG TABLET (FP) PO SCH (22:12)
[2018-05-07] MEDS ORDERED: chlordiazePOXIDE HCL 25 MG CAPSULE PO SCH (23:00)
[2018-05-08] MEDS ORDERED: METHADONE HCL 5 MG TABLET ONE (04:34)
[2018-05-08] MEDS ORDERED: METHADONE HCL 40 MG DISPERSABLE TABLET ONE (04:35)
[2018-05-08] MEDS ORDERED: METHADONE HCL 10 MG TABLET ONE (04:35)
[2018-05-08] MEDS ORDERED: METHADONE HCL 40 MG DISPERSABLE TABLET PO SCH (06:00)
[2018-05-08] MEDS: METHADONE 120 MG, METHADONE 10 MG, METHADONE 5 MG PO SCH (06:20)
[2018-05-08] MEDS: chlordiazePOXIDE HCL 25 MG CAPSULE PO SCH ×3 (06:20→17:22)
[2018-05-08] MEDS: RANOLAZINE E.R. 500 MG TABLET (FP) PO SCH ×2 (10:16→22:08)
[2018-05-08] MEDS: GABAPENTIN 300 MG CAPSULE (FP) PO SCH ×2 (10:16→22:08)
[2018-05-08] MEDS: ASPIRIN COATED 81 MG TABLET.EC PO SCH (10:16)
[2018-05-08] MEDS: amLODIPine BESYLATE 5 MG TABLET (FP) PO SCH (10:16)
[2018-05-08] MEDS: PRENATAL VITAMINS W/ FOLIC ACID TABLET (FP) PO SCH (10:16)
[2018-05-08] MEDS: NICOTINE 14 MG/24 HOURS TOPICAL PATCH TD SCH (10:17)
--- NOTE | 2018-05-08 12:33 | PN ---
[facility] CIWA - CIWA Score Nausea/Vomitin-No Nausea/No Vomiting Muscle Tremors: 3 Anxiety: 2 Agitation: 3 Paroxysmal Sweats: 2 Orientation: 0-Oriented Tacttile Disturbances: 0-None Auditory Disturbances: 0-None Visual Disturbances: 0-None Headache: 0-None Present CIWA-Ar Total Score: 10 S Progress Note (SOAP) Subjective: tired sweats interrupted sleep anxiety Objective: 05/08/18 12:33 Vital Signs Temperature 98.9 F 05/08/18 09:25 Pulse Rate 76 05/08/18 09:25 Respiratory Rate 18 05/08/18 09:25 Blood Pressure 132/77 05/08/18 09:25 O2 Sat by Pulse Oximetry (%) Laboratory Tests 05/07/18 05/07/18 05/07/18 07:00 07:00 07:00 WBC 8.6 RBC 3.82 Hgb 13.1 Hct 38.4 MCV 100.4 H MCH 34.3 H MCHC 34.1 RDW 14.4 Plt Count 231 MPV 8.2 Sodium 140 Potassium 3.9 Chloride 106 Carbon Dioxide 27 Anion Gap 8 BUN 11 Creatinine 0.8 Creat Clearance w eGFR > 60 Random Glucose 114 H Calcium 8.9 Total Bilirubin 0.3 AST 13 L ALT 19 Alkaline Phosphatase 90 Total Protein 7.0 Albumin 3.5 RPR Titer Nonreactive aaox3 ambulating no acute distress Assessment: 05/08/18 12:33 mild withdrawal sx Plan: continue detox increase fluids
[2018-05-08] MEDS: chlordiazePOXIDE 5 MG CAPSULE PO SCH (22:07)
[2018-05-08] MEDS: THIAMINE HCL 100 MG TABLET (FP) PO SCH (22:08)
[2018-05-08] MEDS: MIRTAZAPINE 15 MG TABLET (FP) PO SCH (22:08)
[2018-05-08] MEDS: guaiFENesin/D-METHORPHAN HB 10 ML UNIT-DOSE CUPS PO PRN (22:59)
[2018-05-08] MEDS ORDERED: chlordiazePOXIDE 5 MG CAPSULE PO SCH (23:00)
[2018-05-09] MEDS: chlordiazePOXIDE 5 MG CAPSULE PO SCH ×3 (07:20→18:00)
[2018-05-09] MEDS: ASPIRIN COATED 81 MG TABLET.EC PO SCH (11:11)
[2018-05-09] MEDS: RANOLAZINE E.R. 500 MG TABLET (FP) PO SCH ×2 (11:11→22:12)
[2018-05-09] MEDS: PRENATAL VITAMINS W/ FOLIC ACID TABLET (FP) PO SCH (11:11)
[2018-05-09] MEDS: GABAPENTIN 300 MG CAPSULE (FP) PO SCH ×2 (11:11→22:12)
[2018-05-09] MEDS: NICOTINE 14 MG/24 HOURS TOPICAL PATCH TD SCH (11:11)
[2018-05-09] MEDS: amLODIPine BESYLATE 5 MG TABLET (FP) PO SCH (11:11)
[2018-05-09] MEDS: METHADONE 120 MG, METHADONE 10 MG, METHADONE 5 MG PO SCH (12:03)
[2018-05-09] MEDS ORDERED: METHADONE HCL 10 MG TABLET PO ONE (12:11)
--- NOTE | 2018-05-09 12:23 | PN ---
[facility] Progress Note (SOAP) Subjective: feeling hopeless s/p being homeless and other personal issues, depressed Sweats some sleep disturbance Did not get her a.m methadone (held because pt was difficult to arouse earlier per RN) requested ENsure Objective: 05/09/18 12:19 A & O x 3 Gait steady Anxious Slight tremors noted Denies HI/SI,auditory nor visual hallucination at this time Declines ER visit stating she is not suicidal but thinks about it "sometimes" Vital Signs Period Temp Pulse Resp BP Sys/Caicedo Pulse Ox Last 24 Hr 96.3 F-98.4 F 81-94 18-18 120-147/82-92 Assessment: 05/09/18 12:21 Withdrawal symptoms Sad mood Anxiety Plan: continue detox missed methadone dose re-ordered Ensure ordered Continue increased hydration Repeat psych consult ordered, and verbally informed DR [place]
[2018-05-09] MEDS ORDERED: METHADONE 120 MG, METHADONE 10 MG, METHADONE 5 MG PO ONE (12:30)
[2018-05-09] MEDS ORDERED: METHADONE HCL 10 MG TABLET ONE (12:40)
[2018-05-09] MEDS ORDERED: METHADONE HCL 40 MG DISPERSABLE TABLET ONE (12:40)
[2018-05-09] MEDS ORDERED: METHADONE HCL 5 MG TABLET ONE (12:40)
[2018-05-09] MEDS: THIAMINE HCL 100 MG TABLET (FP) PO SCH (22:12)
[2018-05-09] MEDS: chlordiazePOXIDE HCL 10 MG CAPSULE PO SCH (22:12)
[2018-05-09] MEDS: MIRTAZAPINE 15 MG TABLET (FP) PO SCH (22:12)
[2018-05-09] MEDS ORDERED: chlordiazePOXIDE HCL 10 MG CAPSULE PO SCH (23:00)
--- NOTE | 2018-05-10 07:08 | PN ---
[facility] Progress Note (SOAP) Subjective: ASKED TO SEE PATIENT FOR FEVER AND INCREASE CONFUSION OVER NIGHT. CLIENT C/O CHILLS, FEVER, SOB, PRODUCTIVE COUGH WITH GREENISH EXPECTORANT. SHE STATES SHE IS HOMELESS AND LIVES IN A SENIOR CARE. EXPRESSES FEELING DEPRESSED DUE TO RECENT OF SPOUSE. DENIES SI/HI. Objective: 05/10/18 07:07 Vital Signs - 8 hr 05/10/18 05/10/18 05/10/18 00:30 03:30 06:00 Temperature 101.7 F H Pulse Rate 109 H Respiratory 18 18 20 Rate Blood Pressure 157/93 05/10/18 05/10/18 06:05 06:56 Temperature 102.2 F H 100.2 F H Pulse Rate Respiratory Rate Blood Pressure AWAKE /ALERT/ X2 DOES NOT KNOW NAME OF HOSPITAL BUT DOES KNOW SHE IS IN ONE, CONFUSED ABOUT YEAR 2018, VS 2019 DEPRESSED AFFECT, EASILY REORIENTATED. CV- RR- TACHY LUNGS- MILD EXP WHEEZING TO BASES WITH DECREASED BREATH SOUNDS- O2SAT RA 94% ABD- PROTRUBENT, SOFT NT, DECREASED BS Assessment: 05/10/18 07:09 R/O PNA Plan: CXR ZITHROMAX 500 MG PO DAILY X 3 DAYS. FIRST DOSE NOW WILL DO AMMONIA LEVEL FOR REPORTED CONFUSION BY OVERNIGHT NURSE X 2 NIGHTS. CLIENT IS CONFUSED AT TIME BUT EASLIY RE-ORIENTATED. OOB AMBULATING W/O DIFFICULTY ASKING FOR CEREAL AND CONVERSING WITH STAFF ABOUT ADDITIONAL FOOD SHE IS HUNGRY CONT TO ENCOURAGE PO FLUIDS PSYCH RE-CONSULTED
[2018-05-10] MEDS: chlordiazePOXIDE HCL 10 MG CAPSULE PO SCH ×3 (07:25→17:32)
[2018-05-10] MEDS: AZITHROMYCIN 250 MG TABLET PO SCH (07:27)
[2018-05-10] MEDS: NICOTINE 14 MG/24 HOURS TOPICAL PATCH TD SCH (10:54)
[2018-05-10] MEDS: RANOLAZINE E.R. 500 MG TABLET (FP) PO SCH ×2 (10:54→22:24)
[2018-05-10] MEDS: ASPIRIN COATED 81 MG TABLET.EC PO SCH (10:54)
[2018-05-10] MEDS: GABAPENTIN 300 MG CAPSULE (FP) PO SCH ×2 (10:55→23:19)
[2018-05-10] MEDS: PRENATAL VITAMINS W/ FOLIC ACID TABLET (FP) PO SCH (10:55)
[2018-05-10] MEDS: amLODIPine BESYLATE 5 MG TABLET (FP) PO SCH (11:27)
[2018-05-10] MEDS: METHADONE 120 MG, METHADONE 10 MG, METHADONE 5 MG PO SCH (16:13)
--- NOTE | 2018-05-10 17:52 | PN ---
[facility] Progress Note (SOAP) Subjective: Runny nose, body aches, diarrhea x 3, interrupted sleep Objective: 05/10/18 17:51 Last Vital Signs Temp Pulse Resp BP Pulse Ox 97.5 F L 78 16 122/68 05/10/18 13:31 05/10/18 13:31 05/10/18 13:31 05/10/18 13:31 Laboratory Tests 05/07/18 05/07/18 05/07/18 07:00 07:00 07:00 WBC 8.6 RBC 3.82 Hgb 13.1 Hct 38.4 MCV 100.4 H MCH 34.3 H MCHC 34.1 RDW 14.4 Plt Count 231 MPV 8.2 Sodium 140 Potassium 3.9 Chloride 106 Carbon Dioxide 27 Anion Gap 8 BUN 11 Creatinine 0.8 Creat Clearance w eGFR > 60 Random Glucose 114 H Calcium 8.9 Total Bilirubin 0.3 AST 13 L ALT 19 Alkaline Phosphatase 90 Ammonia Total Protein 7.0 Albumin 3.5 RPR Titer Nonreactive 05/10/18 07:45 WBC RBC Hgb Hct MCV MCH MCHC RDW Plt Count MPV Sodium Potassium Chloride Carbon Dioxide Anion Gap BUN Creatinine Creat Clearance w eGFR Random Glucose Calcium Total Bilirubin AST ALT Alkaline Phosphatase Ammonia 50.21 H Total Protein Albumin RPR Titer Labs reviewed Assessment: 05/10/18 17:52 Withdrawal symptoms Plan: Continue detox Encourage PO water intake
[2018-05-10] MEDS: guaiFENesin/D-METHORPHAN HB 10 ML UNIT-DOSE CUPS PO PRN (18:21)
[2018-05-10] MEDS: THIAMINE HCL 100 MG TABLET (FP) PO SCH (22:24)
[2018-05-10] MEDS: MIRTAZAPINE 15 MG TABLET (FP) PO SCH (23:20)
[2018-05-11] MEDS ORDERED: METHADONE HCL 5 MG TABLET ONE (05:38)
[2018-05-11] MEDS ORDERED: METHADONE HCL 40 MG DISPERSABLE TABLET ONE (05:38)
[2018-05-11] MEDS ORDERED: METHADONE HCL 10 MG TABLET ONE (05:39)
[2018-05-11] MEDS: METHADONE 120 MG, METHADONE 10 MG, METHADONE 5 MG PO SCH (05:39)
[2018-05-11] MEDS ORDERED: AZITHROMYCIN 500 MG TABLET PO SCH (07:03)
[2018-05-11] MEDS ORDERED: AMMONIUM LACTATE 12% LOTION 225 GM BOTTLE TP PRN (08:40)
--- NOTE | 2018-05-11 09:45 | PN ---
Psychiatric Progress Note Vital Signs: Vital Signs Period Temp Pulse Resp BP Sys/Caicedo Pulse Ox Last 24 Hr 97.5 F-97.9 F 71-79 16-20 119-148/66-84 Date of Session: 05/11/18 Chief Complaint:: Insomnia, my medications HPI: Patient asking to send all medications to different pharmacy, she wants to send them to [facility] upon dischrge. Denies suicidal, homicidal ideations Current Medications: Active Medications Generic Name Dose Route Start Last Admin Trade Name Freq PRN Reason Stop Dose Admin Acetaminophen 650 mg 05/06/18 21:46 05/09/18 07:24 Tylenol - PO 650 mg Q4H PRN Administration FEVER Al Hydroxide/Mg Hydroxide 30 ml 05/06/18 21:45 Mylanta Oral Suspension - PO Q6H PRN DYSPEPSIA Albuterol Sulfate 2 puff 05/06/18 21:49 Ventolin Hfa Inhaler - IH Q4H PRN WHEEZING Amlodipine Besylate 5 mg 05/07/18 10:00 05/10/18 11:27 Norvasc - PO 5 mg DAILY TORI Administration Aspirin 81 mg 05/07/18 10:00 05/10/18 10:54 Ecotrin - PO 81 mg DAILY TORI Administration Azithromycin 500 mg 05/10/18 07:30 05/10/18 07:27 Zithromax - PO 05/12/18 10:01 500 mg DAILY TORI Administration Eucalyptus/Menthol/Phenol/Sorbitol 1 each 05/06/18 21:45 Cepastat Lozenge - MM Q4H PRN SORE THROAT Gabapentin 300 mg 05/07/18 10:00 05/10/18 23:19 Neurontin - PO Not Given BID TORI Guaifenesin 10 ml 05/06/18 21:45 05/10/18 18:21 Robitussin Dm - PO 10 ml Q6H PRN Administration COUGH Ibuprofen 400 mg 05/06/18 21:45 05/10/18 06:13 Motrin - PO 400 mg Q6H PRN Administration PAIN LEVEL 4-6 Lactic Acid 1 applic 05/11/18 08:40 Lac-Hydrin 12 TP DAILY PRN DRY SKIN Loperamide HCl 4 mg 05/06/18 21:45 Imodium - PO Q6H PRN DIARRHEA Magnesium Citrate 300 ml 05/06/18 21:45 Citroma - PO Q48H PRN CONSTIPATION Magnesium Hydroxide 30 ml 05/06/18 21:45 Milk Of Magnesia - PO DAILY PRN CONSTIPATION Melatonin 5 mg 05/06/18 22:00 Melatonin PO HS PRN INSOMNIA Methadone HCl 120 mg/ 135 mg 05/08/18 06:00 05/11/18 05:39 Methadone HCl 10 mg/ Methadone PO 05/14/18 05:59 135 mg HCl 5 mg DAILY@0600 TORI Administration Mirtazapine 45 mg 05/07/18 22:00 05/10/18 23:20 Remeron - PO Not Given HS TORI Nicotine 14 mg 05/07/18 10:00 05/10/18 10:54 Nicoderm Patch - TD 14 mg DAILY TORI Administration Nicotine Polacrilex 2 mg 05/06/18 21:46 Nicorette Gum - BC Q2H PRN NICOTINE REPLACEMENT RX Multivit/Folic Acid/Iron 1 tab 05/07/18 10:00 05/10/18 10:55 Vitamins (Sjr) - PO 1 tab DAILY TORI Administration Pseudoephedrine/Triprolidine 1 combo 05/06/18 21:45 Actifed - PO TID PRN NASAL CONGESTION Ranolazine 500 mg 05/06/18 22:00 05/10/18 22:24 Ranexa - PO 500 mg BID TORI Administration Thiamine HCl 100 mg 05/06/18 22:00 05/10/18 22:24 Vitamin B1 - PO 100 mg HS TORI Administration Medication(s) Change(s): none Mental Status Exam - Mental Status Exam Alert and Oriented to: Person Cognitive Function: Fair Patient Appearance: Unkempt Mood: Anxious Affect: Normal Range Patient Behavior: Cooperative Speech Pattern: Appropriate Voice Loudness: Normal Thought Process: Circumstantial, Goal Oriented Thought Disorder: Being Controlled Hallucinations: Denies Suicidal Ideation: Denies Homicidal Ideation: Denies Insight/Judgement: Fair Appetite: Weight gain Muscle strength/Tone: Normal Gait/Station: Normal Additional Comments: Remeron 45mg pom qhs. Gabapentin 300mg po tid Psychiatric Treatment Plan - Problem List (1) Cannabis dependence Current Visit: Yes (2) Azotemia Current Visit: No (3) Chest pain Current Visit: No (4) Increased ammonia level Current Visit: No (5) Substance-induced sleep disorder Current Visit: No (6) Syncope Current Visit: No (7) Weight loss Current Visit: No (8) Alcohol dependence Current Visit: No (9) Angina concurrent with and due to arteriosclerosis of coronary artery Current Visit: Yes (10) CAD (coronary artery disease) Current Visit: Yes (11) Cocaine dependence Current Visit: Yes Qualifiers: (12) GERD (gastroesophageal reflux disease) Current Visit: No (13) HTN (hypertension) Current Visit: Yes (14) Hyperlipidemia Current Visit: Yes Qualifiers: Hyperlipidemia type: unspecified Qualified Code(s): E78.5 - Hyperlipidemia , unspecified (15) MDD (major depressive disorder) Current Visit: No (16) Nicotine dependence Current Visit: Yes Qualifiers: Nicotine product type: cigarettes Substance use status: uncomplicated Qualified Code(s): F17.210 - Nicotine dependence, cigarettes, uncomplicated (17) Opioid dependence on agonist therapy Current Visit: Yes (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 Gabapentin 300mg po tid. Sent to [facility]
[2018-05-11] MEDS: AZITHROMYCIN 250 MG TABLET PO SCH (09:50)
[2018-05-11] MEDS: GABAPENTIN 300 MG CAPSULE (FP) PO SCH (09:51)
[2018-05-11] MEDS: amLODIPine BESYLATE 5 MG TABLET (FP) PO SCH (09:51)
[2018-05-11] MEDS: PRENATAL VITAMINS W/ FOLIC ACID TABLET (FP) PO SCH (09:53)
[2018-05-11] MEDS: NICOTINE 14 MG/24 HOURS TOPICAL PATCH TD SCH (09:53)
[2018-05-11] MEDS: RANOLAZINE E.R. 500 MG TABLET (FP) PO SCH (09:55)
--- NOTE | 2018-05-11 10:02 | DS ---
[facility] Detox Discharge Summary Admission Date: 05/06/18 Discharge Date: 05/11/18 - History Present History: Alcohol Dependence, Cannabis Dependence - Physical Exam Results Vital Signs: Vital Signs Temperature 97.5 F L 05/11/18 07:15 Pulse Rate 71 05/11/18 07:15 Respiratory Rate 18 05/11/18 07:15 Blood Pressure 119/70 05/11/18 07:15 O2 Sat by Pulse Oximetry (%) - Treatment Hospital Course: Detox Protocol Followed, Detoxed Safely, Responded well, Discharged Condition Good, Rehab Referral Accepted - Medication Discharge Medications: Ambulatory Orders Mirtazapine [Remeron [DO NOT STOCK]] 45 mg PO HS 06/16/17 Amlodipine Besylate 5 mg PO DAILY #30 tablet 03/18/18 Aspirin [Aspirin EC] 1 tab PO DAILY #30 tablet. 03/18/18 Ranolazine [Ranexa -] 500 mg PO BID 05/06/18 Gabapentin [Neurontin -] 300 mg PO BID #60 capsule 05/07/18 Mirtazapine [Remeron -] 45 mg PO HS #30 tablet 05/07/18 Albuterol Sulfate Inhaler - [Ventolin HFA Inhaler -] 2 inh PO Q4H PRN #1 inhaler 05/11/18 Ammonium Lactate Lotion [Lac-Hydrin 12] 1 applic TP DAILY PRN #1 bottle Azithromycin [Zithromax 250mg Tablets -] 500 mg PO DAILY #3 tablet 05/11/18 - Diagnosis (1) Cannabis dependence Current Visit: Yes Status: Chronic (2) Opioid dependence on agonist therapy Current Visit: Yes Status: Chronic (3) Wheezing Current Visit: Yes Status: Chronic (4) Angina concurrent with and due to arteriosclerosis of coronary artery Current Visit: Yes Status: Chronic (5) CAD (coronary artery disease) Current Visit: Yes Status: Chronic (6) Cocaine dependence Current Visit: Yes Status: Chronic Qualifiers: Substance use status: uncomplicated (7) HTN (hypertension) Current Visit: Yes Status: Chronic Qualifiers: Hypertension type: essential hypertension Qualified Code(s): I10 - Essential (primary) hypertension (8) Hyperlipidemia Current Visit: Yes Status: Chronic Qualifiers: Hyperlipidemia type: unspecified Qualified Code(s): E78.5 - Hyperlipidemia , unspecified (9) Nicotine dependence Current Visit: Yes Status: Chronic Qualifiers: Nicotine product type: cigarettes Substance use status: uncomplicated Qualified Code(s): F17.210 - Nicotine dependence, cigarettes, uncomplicated (10) Increased ammonia level Current Visit: Yes Status: Acute (11) Substance-induced sleep disorder Current Visit: No Status: Acute (12) Syncope Current Visit: No Status: Acute (13) Weight loss Current Visit: No Status: Acute (14) GERD (gastroesophageal reflux disease) Current Visit: Yes Status: Chronic Qualifiers: Esophagitis presence: without esophagitis Qualified Code(s): K21.9 - Gastro -esophageal reflux disease without esophagitis (15) MDD (major depressive disorder) Current Visit: No Status: Chronic (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
[2018-05-11] MEDS: ASPIRIN COATED 81 MG TABLET.EC PO SCH (10:22)
--- NOTE | 2018-05-11 10:53 | PN ---
[facility] Progress Note Note: pt refused to have a chest x-ray done. pt states she isn't coughing anymore doesn't have a fever and is feeling fine. V/S WNL and pt is going back to her [facility] program.
[2018-05-11 13:51] VITALS: BP 110/63; PULSE 79; TEMP 97.9
== END 2018-05-11 13:40 | disposition home or self-care (01) | DRG 773 ==
LOC: YASAS 13:54 → Y6N 21:47
PROVIDERS: ADMIT Surgery; ATTEND Surgery
PROC: HZ2ZZZZ Detoxification Services for Substance Abuse Treatment (ICD-10-PCS; principal; 2018-05-06)
DX: F10.230 Alcohol dependence with withdrawal, uncomplicated (principal); F11.20 Opioid dependence, uncomplicated; F14.20 Cocaine dependence, uncomplicated; F12.20 Cannabis dependence, uncomplicated; F17.210 Nicotine dependence, cigarettes, uncomplicated; F39 Unspecified mood [affective] disorder; F19.282 Other psychoactive substance dependence with psychoactive substance-induced sleep disorder; F41.9 Anxiety disorder, unspecified; F32.9 Major depressive disorder, single episode, unspecified; I10 Essential (primary) hypertension; I25.119 Atherosclerotic heart disease of native coronary artery with unspecified angina pectoris; E78.5 Hyperlipidemia, unspecified; E72.20 Disorder of urea cycle metabolism, unspecified; K21.9 Gastro-esophageal reflux disease without esophagitis; R79.89 Other specified abnormal findings of blood chemistry; G47.00 Insomnia, unspecified; G62.9 Polyneuropathy, unspecified; R06.2 Wheezing; S04.5 Injury of facial nerve; X58.XXXS Exposure to other specified factors, sequela; Z88.2 Allergy status to sulfonamides; Z91.5 Personal history of self-harm
CPT/HCPCS: 36415; 80053; 82140; 85027; 86593; 93005; 93010

== ENCOUNTER 2020-04-15 16:00 | Inpatient (IN) | payer OTHER ==
[2020-04-15 18:55] VITALS: BMI 21.6
[2020-04-15] MEDS ORDERED: METHADONE HCL 10 MG TABLET (FOR DETOX USE ONLY) PO ONE (22:46)
[2020-04-15] MEDS ORDERED: MAG HYDROX/AL HYDROX/SIMETH 30 ML UNIT-DOSE CUP PO PRN (22:46)
[2020-04-15] MEDS ORDERED: ACETAMINOPHEN 325 MG TABLET (FP) PO PRN ×2 (22:46)
[2020-04-15] MEDS ORDERED: chlordiazePOXIDE HCL 25 MG CAPSULE PO PRN (22:46)
[2020-04-15] MEDS ORDERED: IBUPROFEN 400 MG TABLET (FP) PO PRN (22:46)
[2020-04-15] MEDS ORDERED: MAGNESIUM CITRATE 300 ML BOTTLE PO PRN (22:46)
[2020-04-15] MEDS ORDERED: ONDANSETRON *ODT* 4 MG TABLET SL PRN (22:46)
[2020-04-15] MEDS ORDERED: MENTHOL/PHENOL 1 EACH UD MM PRN (22:46)
[2020-04-15] MEDS ORDERED: METHOCARBAMOL 500 MG TABLET PO PRN (22:46)
[2020-04-15] MEDS ORDERED: BISMUTH SUBSALICYLATE 524 MG/30 ML UD PO PRN (22:46)
[2020-04-15] MEDS ORDERED: NICOTINE POLACRILEX 2 MG GUM BUC PRN (22:46)
[2020-04-15] MEDS ORDERED: MAGNESIUM HYDROX 2400MG/30ML ORAL SUSPENSION 30 ML CUP PO PRN (22:46)
[2020-04-16] MEDS ORDERED: chlordiazePOXIDE HCL 25 MG CAPSULE ONE ×3 (00:14→10:55)
[2020-04-16] MEDS ORDERED: METHADONE HCL 10 MG TABLET (FOR DETOX USE ONLY) ONE ×3 (00:15→07:22)
[2020-04-16] MEDS: chlordiazePOXIDE HCL 25 MG CAPSULE PO SCH ×5 (00:18→23:56)
[2020-04-16] MEDS ORDERED: METHADONE (DETOX) 20 MG, METHADONE (DETOX) 5 MG PO ONE (06:00)
[2020-04-16 10:40] LABS: POTASSIUM 3.6 mmol/L (3.5-5.1)
[2020-04-16 10:52] LABS: BLOOD UREA NITROGEN 20.8 mg/dL (7-18); CALCIUM 8.5 mg/dL (8.5-10.1)
[2020-04-16 10:53] LABS: HEMATOCRIT 36.6 % (32.4-45.2); HEMOGLOBIN 12.5 GM/dL (10.7-15.3); MCH 34.1 pg (25.7-33.7); MCHC 34.3 g/dl (32.0-36.0); MEAN CELL VOLUME 99.4 fl (80-96); MEAN PLT VOLUME 7.9 fl (7.5-11.1); PLATELET COUNT 278 K/MM3 (134-434); RBC 3.68 M/mm3 (3.60-5.2); RDW 13.8 % (11.6-15.6); WHITE BLOOD COUNT 5.8 K/mm3 (4.0-10.0)
[2020-04-16 10:54] LABS: CREATININE 0.9 mg/dL (0.55-1.3)
[2020-04-16 10:56] LABS: BILIRUBIN,TOTAL 0.7 mg/dL (0.2-1); TOT PROT 6.2 g/dl (6.4-8.2)
[2020-04-16] MEDS ORDERED: NICOTINE 14 MG/24 HOURS TOPICAL PATCH TD ONE (10:56)
[2020-04-16] MEDS: NICOTINE 14 MG/24 HOURS TOPICAL PATCH TD SCH (11:00)
[2020-04-16] MEDS: PRENATAL VITAMINS W/ FOLIC ACID TABLET (FP) PO SCH (13:50)
[2020-04-16] MEDS: MELATONIN 5 MG TABLETS PO SCH (23:55)
[2020-04-16] MEDS: MIRTAZAPINE 15 MG TABLET (FP) PO SCH (23:55)
[2020-04-16] MEDS: THIAMINE HCL 100 MG TABLET (FP) PO SCH (23:56)
[2020-04-17] MEDS: chlordiazePOXIDE HCL 25 MG CAPSULE PO SCH ×4 (06:05→22:01)
[2020-04-17] MEDS ORDERED: METHADONE HCL 10 MG TABLET (FOR DETOX USE ONLY) PO ONE (10:00)
[2020-04-17] MEDS ORDERED: DICYCLOMINE HCL 10 MG CAPSULE PO ONE (10:00)
[2020-04-17] MEDS ORDERED: DICYCLOMINE HCL 20 MG TABLET PO ONE (10:00)
[2020-04-17] MEDS ORDERED: METHOCARBAMOL 750 MG TAB PO ONE (10:00)
[2020-04-17] MEDS ORDERED: LOPERAMIDE HCL 2 MG CAPSULE PO ONE (10:00)
[2020-04-17] MEDS: NICOTINE 14 MG/24 HOURS TOPICAL PATCH TD SCH (10:13)
[2020-04-17] MEDS: hydrOXYzine PAMOATE 50 MG CAPSULE (FP) PO SCH ×4 (10:20→22:00)
[2020-04-17] MEDS: PRENATAL VITAMINS W/ FOLIC ACID TABLET (FP) PO SCH (10:58)
[2020-04-17] MEDS: MIRTAZAPINE 15 MG TABLET (FP) PO SCH (21:59)
[2020-04-17] MEDS: MELATONIN 5 MG TABLETS PO SCH (22:00)
[2020-04-17] MEDS: THIAMINE HCL 100 MG TABLET (FP) PO SCH (22:01)
[2020-04-18] MEDS ORDERED: chlordiazePOXIDE HCL 10 MG CAPSULE PO PRN
[2020-04-18] MEDS: chlordiazePOXIDE HCL 10 MG CAPSULE PO SCH ×4 (05:36→22:27)
[2020-04-18] MEDS: hydrOXYzine PAMOATE 50 MG CAPSULE (FP) PO SCH (05:37)
[2020-04-18] MEDS ORDERED: LACTULOSE 20 GM/30 ML UDC (FOR ORAL USE ONLY) PO ONE (08:45)
[2020-04-18] MEDS ORDERED: METHADONE HCL 5 MG TABLET (FOR DETOX USE ONLY) ONE (09:43)
[2020-04-18] MEDS ORDERED: METHADONE HCL 10 MG TABLET (FOR DETOX USE ONLY) ONE (09:43)
[2020-04-18] MEDS ORDERED: METHADONE (DETOX) 10 MG, METHADONE (DETOX) 5 MG PO ONE (10:00)
[2020-04-18] MEDS: PRENATAL VITAMINS W/ FOLIC ACID TABLET (FP) PO SCH (10:40)
[2020-04-18] MEDS: NICOTINE 14 MG/24 HOURS TOPICAL PATCH TD SCH (10:41)
[2020-04-18] MEDS ORDERED: MELATONIN 5 MG TABLETS PO PRN (10:51)
[2020-04-18] MEDS ORDERED: LACTULOSE 20 GM/30 ML UDC (FOR ORAL USE ONLY) PO PRN (14:00)
[2020-04-18] MEDS: MIRTAZAPINE 15 MG TABLET (FP) PO SCH (22:26)
[2020-04-18] MEDS: THIAMINE HCL 100 MG TABLET (FP) PO SCH (22:27)
[2020-04-19] MEDS: chlordiazePOXIDE HCL 10 MG CAPSULE PO SCH ×2 (06:07→18:15)
[2020-04-19] MEDS ORDERED: METHADONE HCL 10 MG TABLET (FOR DETOX USE ONLY) PO ONE (10:00)
[2020-04-19] MEDS: NICOTINE 14 MG/24 HOURS TOPICAL PATCH TD SCH (10:37)
[2020-04-19] MEDS: PRENATAL VITAMINS W/ FOLIC ACID TABLET (FP) PO SCH (10:38)
[2020-04-19] MEDS ORDERED: LACTULOSE 20 GM/30 ML UDC (FOR ORAL USE ONLY) PO ONE (15:17)
[2020-04-19] MEDS: LACTULOSE 20 GM/30 ML UDC (FOR ORAL USE ONLY) PO SCH ×2 (18:16→22:12)
[2020-04-19] MEDS ORDERED: LACTULOSE 20 GM/30 ML UDC (FOR ORAL USE ONLY) PO SCH (22:00)
[2020-04-19] MEDS: MIRTAZAPINE 15 MG TABLET (FP) PO SCH (22:12)
[2020-04-19] MEDS: THIAMINE HCL 100 MG TABLET (FP) PO SCH (22:12)
[2020-04-20] MEDS ORDERED: chlordiazePOXIDE HCL 10 MG CAPSULE PO ONE (05:00)
[2020-04-20 06:16] VITALS: TEMP 97.3
[2020-04-20] MEDS: PRENATAL VITAMINS W/ FOLIC ACID TABLET (FP) PO SCH (09:19)
[2020-04-20] MEDS: LACTULOSE 20 GM/30 ML UDC (FOR ORAL USE ONLY) PO SCH (09:19)
[2020-04-20] MEDS: NICOTINE 14 MG/24 HOURS TOPICAL PATCH TD SCH (09:21)
[2020-04-20 09:38] VITALS: BP 136/76; PULSE 86
[2020-04-20] MEDS ORDERED: METHADONE HCL 5 MG TABLET (FOR DETOX USE ONLY) PO ONE (10:00)
== END 2020-04-20 11:19 | disposition other institution (70) | DRG 773 ==
LOC: YASAS 16:00 → Y6N 04-16 11:09
PROVIDERS: ADMIT Allergy & Immunology; ATTEND Allergy & Immunology
PROC: HZ2ZZZZ Detoxification Services for Substance Abuse Treatment (ICD-10-PCS; principal; 2020-04-16)
DX: F11.23 Opioid dependence with withdrawal (principal); F10.230 Alcohol dependence with withdrawal, uncomplicated; F14.20 Cocaine dependence, uncomplicated; F12.20 Cannabis dependence, uncomplicated; F17.210 Nicotine dependence, cigarettes, uncomplicated; F32.9 Major depressive disorder, single episode, unspecified; F19.24 Other psychoactive substance dependence with psychoactive substance-induced mood disorder; F19.282 Other psychoactive substance dependence with psychoactive substance-induced sleep disorder; I10 Essential (primary) hypertension; I25.119 Atherosclerotic heart disease of native coronary artery with unspecified angina pectoris; K21.9 Gastro-esophageal reflux disease without esophagitis; R78.5 Finding of other psychotropic drug in blood; E72.20 Disorder of urea cycle metabolism, unspecified; G62.9 Polyneuropathy, unspecified; R45.851 Suicidal ideations; Z88.2 Allergy status to sulfonamides; Z86.19 Personal history of other infectious and parasitic diseases
CPT/HCPCS: 36415; 80053; 82140; 85027; 86593; 86780; 93005; 93010; C9803; U0003

== ENCOUNTER 2020-04-20 11:27 | Inpatient (IN) | payer OTHER ==
[2020-04-20 12:59] VITALS: BP 141/88; PULSE 73; TEMP 97.5
== END 2020-04-20 16:25 | disposition left against medical advice (07) | DRG 861 ==
LOC: YASAS 11:27 → Y3W 11:28
PROVIDERS: ADMIT Allergy & Immunology; ATTEND Allergy & Immunology
DX: Z53.29 Procedure and treatment not carried out because of patient's decision for other reasons (principal)

== ENCOUNTER 2024-11-13 21:55 | Inpatient (IN) | payer OTHER ==
[2024-11-13 22:12] VITALS: BMI 23.7
[2024-11-14] MEDS ORDERED: MAG HYDROX/AL HYDROX/SIMETH 30 ML UNIT-DOSE CUP PO PRN (00:27)
[2024-11-14] MEDS ORDERED: LOPERAMIDE HCL 2 MG CAPSULE PO PRN (00:27)
[2024-11-14] MEDS ORDERED: ONDANSETRON *ODT* 4 MG TABLET SL PRN (00:27)
[2024-11-14] MEDS ORDERED: NICOTINE POLACRILEX 2 MG GUM BUC PRN (00:27)
[2024-11-14] MEDS ORDERED: ACETAMINOPHEN 325 MG TABLET (FP) PO PRN (00:27)
[2024-11-14] MEDS ORDERED: BENZOCAINE/MENTHOL (CHLORASEPTIC ) LOZENGE MM PRN (00:27)
[2024-11-14] MEDS ORDERED: MAGNESIUM HYDROX 2400MG/30ML ORAL SUSPENSION 30 ML CUP PO PRN (00:27)
[2024-11-14] MEDS ORDERED: IBUPROFEN 400 MG TABLET (FP) PO PRN (00:27)
[2024-11-14] MEDS ORDERED: DICYCLOMINE HCL 10 MG CAPSULE PO PRN (00:27)
[2024-11-14] MEDS ORDERED: POLYETHYLENE GLYCOL (HEALTHYLAX) 3350 17 GM PACKET PO PRN (00:27)
[2024-11-14] MEDS ORDERED: BISMUTH SUBSALICYLATE 524 MG/30 ML PO PRN (00:27)
[2024-11-14] MEDS ORDERED: guaiFENesin 600 MG TABLET.ER (FP) PO PRN (00:27)
[2024-11-14] MEDS ORDERED: NALOXONE (NARCAN) HCL 4 MG/0.1 ML SPRAY NS PRN (00:27)
[2024-11-14] MEDS ORDERED: BENZONATATE 200 MG CAPSULE PO PRN (00:27)
[2024-11-14] MEDS: PRENATAL VITAMINS W/ FOLIC ACID TABLET (FP) PO SCH (10:44)
[2024-11-14] MEDS: NICOTINE 14 MG/24 HOURS TOPICAL PATCH TD SCH (10:44)
[2024-11-14] MEDS: METHOCARBAMOL 500 MG TABLET PO PRN (10:47)
[2024-11-14] MEDS: hydrOXYzine PAMOATE 25 MG CAPSULE (FP) PO PRN (10:47)
[2024-11-14] MEDS ORDERED: ALBUTEROL SO4 HFA INHALER IH PRN (13:40)
[2024-11-14] MEDS: ASPIRIN 81 MG CHEWABLE TABLETS PO SCH (14:52)
[2024-11-14] MEDS: amLODIPine BESYLATE 5 MG TABLET (FP) PO SCH (14:52)
[2024-11-14] MEDS: FAMOTIDINE 20 MG TABLET PO SCH (14:52)
[2024-11-14] MEDS: MELATONIN 5 MG TABLETS PO SCH (22:55)
[2024-11-14] MEDS: THIAMINE 100 MG TABLET PO SCH (22:55)
[2024-11-14] MEDS: RANOLAZINE E.R. 500 MG TABLET (FP) PO SCH (22:55)
[2024-11-15 09:56] LABS: MCHC 33.3 g/dl (32.2-35.5); MEAN CELL VOLUME 96.8 fl (79.4-94.8); MEAN PLT VOLUME 10.4 fl (9.4-12.3); RDW 13.8 % (12.4-16.4)
[2024-11-15 10:09] LABS: GLUCOSE,RANDOM 97.0 mg/dL (74-106); TOT PROT 6.8 g/dl (6.4-8.2)
[2024-11-15 10:10] LABS: CO2 25.0 mmol/L (21-32)
[2024-11-15 10:12] LABS: ALK PHOS 71.0 U/L (40-150)
[2024-11-15 10:15] LABS: CREATININE 0.67 mg/dL (0.55-1.3); SGOT/AST 22.0 U/L (5-34); SGPT/ALT 11.0 U/L (0-55)
[2024-11-15 10:34] LABS: SYPHILIS W/ RPR CONF REACTIVE (NONREACTIVE)
[2024-11-15] MEDS: IBUPROFEN 600 MG TABLET (FP) PO PRN (22:07)
[2024-11-16 15:33] LABS: RPR REFLEX REACTIVE 1:1 (NONREACTIVE)
[2024-11-16 17:29] LABS: EPI CELLS >36 /uL (0-25.1); HYALINE CASTS 2 /uL (0-3.1); URINE APPEARANCE CLOUDY; URINE BACTERIA 1711 /uL (0-1359); URINE BILIRUBIN NEGATIVE (NEGATIVE); URINE COLOR DK YELLOW; URINE GLUCOSE (UA) NEGATIVE (NEGATIVE); URINE KETONE TRACE (NEGATIVE); URINE LEUK ESTERASE 1+ (NEGATIVE); URINE NITRITE NEGATIVE (NEGATIVE); URINE PROTEIN NEGATIVE (NEGATIVE); URINE UROBILINOGEN 1.0 mg/dL (0.2-1.0); URINE WBC 34 /uL (0-25.8)
[2024-11-16 17:36] LABS: URINE RBC 72.4 /uL (0-23.9)
[2024-11-16] MEDS: MIRTAZAPINE 15 MG TABLET (FP) PO SCH (22:07)
[2024-11-18 09:09] VITALS: BP 110/66; PULSE 79; RESP 14; TEMP 98
== END 2024-11-18 10:19 | disposition home or self-care (01) | DRG 897 ==
LOC: YASAS 21:55 → Y3N 11-14 01:25
PROVIDERS: ADMIT Allergy & Immunology; ATTEND Allergy & Immunology
PROC: HZ2ZZZZ Detoxification Services for Substance Abuse Treatment (ICD-10-PCS; principal; 2024-11-14)
DX: F11.20 Opioid dependence, uncomplicated (principal); F14.20 Cocaine dependence, uncomplicated; F33.1 Major depressive disorder, recurrent, moderate; F19.282 Other psychoactive substance dependence with psychoactive substance-induced sleep disorder; F17.210 Nicotine dependence, cigarettes, uncomplicated; F19.24 Other psychoactive substance dependence with psychoactive substance-induced mood disorder; G62.9 Polyneuropathy, unspecified; I25.118 Atherosclerotic heart disease of native coronary artery with other forms of angina pectoris; E78.5 Hyperlipidemia, unspecified; I10 Essential (primary) hypertension; J43.0 Unilateral pulmonary emphysema [MacLeod's syndrome]; M54.50 Low back pain, unspecified; G89.29 Other chronic pain; Z20.2 Contact with and (suspected) exposure to infections with a predominantly sexual mode of transmission; Z88.2 Allergy status to sulfonamides
CPT/HCPCS: 36415; 80053; 80307; 81003; 85027; 86593; 86780; 93005; 93010